=== PATIENT | male | born 1975 | race Caucasian/White ===

== ENCOUNTER 2022-11-13 12:11 | Emergency (ER) | payer MEDICARE, SELFPAY ==
[2022-11-13 12:21] VITALS: BP 125/71; PULSE 71; RESP 18; TEMP 36.7; O2SAT 98; BMI 18.6
--- NOTE | 2022-11-13 12:29 | ECG_ITS ---
[facility] Test Date: 2022-11-13 Pat Name: LINO DEGROOT Department: Room: - Gender: Male Document Control Coordinator: : 1975 Requested By: [id number] Order Number: [id number] Reading MD: DARIUSZ BAEZ Measurements Intervals [place] Rate: 69 P: 75 WA: 150 QRS: 100 QRSD: 82 T: 65 QT: 396 QTc: 415 Interpretive Statements 1100 Sinus rhythm 3433 Septal myocardial infarction, probably old 3534 Lateral myocardial infarction, age undetermined 7102 Moderate right axis deviation 9150 abnormal ECG No previous ECG available for comparison Electronically Signed On 11-14-2022 7:03:05 EDT by DARIUSZ BAEZ
--- NOTE | 2022-11-13 12:56 | ED.CHESTPAI1 ---
HPI - Chest Pain General Chief Complaint: Chest Pain Stated Complaint: CHEST PAIN Time Seen by Provider: 11/13/22 12:48 Source: patient Mode of arrival: walk-in History of Present Illness HPI narrative: patient's here for history of palpitations. He says for several months his heart rate speeds up several times a day. Sometimes it lasts an hour. He seen his primary care doctor who referred him to get Holter monitoring but he has not heard back from the [facility] he says for three weeks. He has seen a right of way buyer earlier this year preoperatively before he had hernia surgery. They told him that he hadn't abnormal valve in his heart that was based on an echocardiogram. We will try to get this information. He is not having a chest pain or discomfort at this time. He does use tobacco products but is not had previous coronary artery disease or diabetes. He does have a primary care practitioner and a different community. Related Data Home Medications Medication Instructions Recorded Confirmed fluoxetine 40 mg capsule 80 mg PO QPM 11/13/22 11/13/22 gabapentin 100 mg capsule 100 mg PO BID 11/13/22 11/13/22 haloperidol 1 mg tablet 3 mg PO QPM 11/13/22 11/13/22 lorazepam 0.5 mg tablet 0.5 mg PO BID PRN anxiety 11/13/22 11/13/22 trazodone 100 mg tablet 100 mg PO QPM 11/13/22 11/13/22 Allergies Allergy/AdvReac Type Severity Reaction Status Date / Time aspirin Allergy Severe Verified 11/13/22 12:21 Penicillins Allergy Severe Verified 11/13/22 12:21 risperidone [From Risperdal] Allergy Severe Verified 11/13/22 12:21 Exam Narrative Exam Narrative: [facility] on a 12-lead monitor shows sinus rhythm with no evidence of ischemia injury or infarct at this time. His 12-lead EKG was reviewed on his rivals equally normal. Vital signs show blood pressure 125/71. Overall constitutional skin is warm and dry mucous members are moist and pink he does not appear jaundiced or icteric. Chest showed lungs to be clear with no wheeze rales but there are some scattered rhonchi. He has smoked for many years. Heart sounds I do not hear click rub snap or any cardiac murmur at this time. His abdomen is flat soft and supple. Lower extremities. He then was certainly no evidence of edema phlebitis or venous cords. Constitutional Vital Signs, click to edit/add: Last Vital Signs Temp 98.0 F 11/13/22 12:21 Pulse 71 11/13/22 12:21 Resp 18 11/13/22 12:21 BP 125/71 11/13/22 12:21 Pulse Ox 98 11/13/22 12:21 O2 Del Method Room Air 11/13/22 12:21 Course Vital Signs Vital signs: Vital Signs Temperature 98.0 F 11/13/22 12:21 Pulse Rate 71 11/13/22 12:21 Respiratory Rate 18 11/13/22 12:21 Blood Pressure 125/71 11/13/22 12:21 Pulse Oximetry 98 11/13/22 12:21 Oxygen Delivery Method Room Air 11/13/22 12:21 Temperature 98.0 F 11/13/22 12:21 Pulse Rate 71 11/13/22 12:21 Respiratory Rate 18 11/13/22 12:21 Blood Pressure 125/71 11/13/22 12:21 Pulse Oximetry 98 11/13/22 12:21 Oxygen Delivery Method Room Air 11/13/22 12:21 MDM - Chest Pain MDM Narrative Medical decision making narrative: this patient has been on her cardiac monitoring and remained in a sinus rhythm with no ectopy or atrial fibrillation. We have been able to contact cardiorespiratory services arrange a Holter monitor for three days for him. Laboratory testing including troponin and labs are essentially normal. We will have him follow-up with his practitioner is no patient especially after the Holter monitoring is done to establish the presence and the frequency of anytime of arrhythmia Discharge Plan Discharge Chief Complaint: Chest Pain Clinical Impression: Arrhythmia Patient Disposition: Home, Self-Care Time of Disposition Decision: 14:26 Prescriptions / Home Meds: No Action fluoxetine 40 mg capsule 80 mg PO QPM gabapentin 100 mg capsule 100 mg PO BID haloperidol 1 mg tablet 3 mg PO QPM lorazepam 0.5 mg tablet 0.5 mg PO BID PRN (Reason: anxiety) trazodone 100 mg tablet 100 mg PO QPM Additional Instructions: Holter monitoring as arranged. Then follow-up to primary care practitioner Stand Alone Forms: Portal Instructions Referrals: HEATHER QUIÑONES [Primary Care Provider] - 1 week
--- NOTE | 2022-11-13 12:58 | XR_ITS ---
The [address] [address] Patient Name: LINO DEGROOT MRN: [id number] date: 1975 Sex: M Assigned Patient Location: ER Current Patient Location: ED.MAIN Accession/Order Number: [id number] Exam Date: 11/13/2022 13:32 Report Date: 11/13/2022 13:52 At the request of: AYAAN MAHMOOD Procedure: XR chest 1V EXAMINATION: XR chest 1V 11/13/2022 10:50 AM PDT HISTORY: palpitations TECHNIQUE: Single frontal view of the chest acquired. COMPARISONS: Chest x-ray 01/30/2020. FINDINGS: Lines/tubes/other: None. Heart and mediastinum: The heart and the mediastinum are within normal limits for technique. Bones: No acute osseous abnormality. Lungs: The lungs are clear. There is no evidence of pneumonia or pulmonary edema. Pleura: Blunting of bilateral costophrenic angles. No pneumothorax. Other: None. XR/XR chest 1V IMPRESSION: Blunting of bilateral costophrenic angles favored to represent diaphragmatic flattening due to large inspiration, however, trace pleural effusions could have a similar appearance. No other potentially acute cardiopulmonary abnormality demonstrated. Electronically authenticated by: NAPOLEON LI Date: 11/13/2022 13:52
[2022-11-13 13:31] LABS: Basophils Percent Auto 0.4 % (0.2-2.0); Eosinophils Absolute Auto 0.1 10^3/uL (0.0-0.7); Eosinophils Percent Auto 0.5 % (0.9-7.0); Hematocrit 39.7 % (42.0-54.0); Hemoglobin 13.9 g/dL (14.0-18.0); Immature Granulocytes Abs Auto 0.03 10^3/uL (0.00-0.03); Immature Granulocytes Pct Auto 0.3 % (0.0-0.5); Lymphocytes Absolute Auto 1.6 10^3/uL (1.2-3.8); Lymphocytes Percent Auto 17.3 % (20.5-60.0); Mean Corpuscular Volume 85.7 fL (80.0-94.0); Mean Platelet Volume 10.5 fL (9.5-13.5); Monocytes Absolute Auto 0.7 10^3/uL (0.3-0.8); Monocytes Percent Auto 7.3 % (1.7-12.0); Neutrophils Absolute Auto 6.9 10^3/uL (1.4-6.5); Neutrophils Percent Auto 74.2 % (43.0-75.0); Platelet Count 199 10^3/uL (150-450); Red Blood Count 4.63 10^6/uL (4.70-6.10); Red Cell Distribution Width 12.9 % (11.0-15.0); White Blood Count 9.4 10^3/uL (4.0-11.0)
--- NOTE | 2022-11-13 13:35 | CA_ITS ---
[facility] Test Date: 2022-11-26 Pat Name: LINO DEGROOT Department: Room: - Gender: Male Philanthropy Officer: : 1975 Requested By: [id number] Order Number: [id number] Reading MD: DARIUSZ BAEZ Interpretive Statements Predominant rhythm is sinus with average rate of 62 bpm Tachycardia - max rate of 116 bpm - longest episode of 2min 43sec w/ rate of 106-116 bpm Bradycardia - min rate of 40 bpm, occurring at 0110 - longest episode of 2h 8min 19sec with rate of 40-46 bpm Ventricluar ectopy - 215 total - 215 PVC Patient triggered events: none IMpression: Predominant rhythm is sinus with average rate of 62 bpm Fastest rate of 116 bpm and slowest rate of 40 bpm No atrial fibrillation No blocks or pauses Electronically Signed On 11-27-2022 7:07:07 EDT by DARIUSZ BAEZ
[2022-11-13] MEDS: 0.9 % SODIUM CHLORIDE 1,000 ML 250 ML IV (13:37)
[2022-11-13 13:39] LABS: D Dimer <0.19 mg/L FEU (<=0.59)
[2022-11-13 13:44] LABS: Alanine Aminotransferase 25 U/L (16-63); Albumin Globulin Ratio 1.3; Albumin Level 3.7 g/dL (3.4-5.0); Alkaline Phosphatase 67 U/L (46-116); Anion Gap 11.3; Aspartate Amino Transferase 17 U/L (15-37); BUN Creatinine Ratio 8.9; Bilirubin Total 0.3 mg/dL (0.2-1.0); Calcium 7.9 mg/dL (8.5-10.1); Carbon Dioxide 26.1 mmol/L (21.0-32.0); Chloride 99 mmol/L (98-107); Estimated GFR (African America >60 (>=60); Estimated GFR (Non-African Ame >60 (>=60); Globulin 2.8 g/dL; Glucose 113 mg/dL (74-106); Potassium 3.4 mmol/L (3.5-5.1); Sodium 133 mmol/L (136-145); Total Protein 6.5 g/dL (6.4-8.2); Troponin I High Sensitivity <4.0 pg/mL (4.0-76.1)
== END 2022-11-13 14:39 | disposition home or self-care (01) ==
PROVIDERS: Emergency Provider Emergency Medicine Emergency Medical Services; PCP Nurse Practitioner
DX: I49.9 Cardiac arrhythmia, unspecified (principal); F17.210 Nicotine dependence, cigarettes, uncomplicated
CPT/HCPCS: 36415; 71045; 80053; 84484; 85025; 85378; 93005; 93242; 99284

== ENCOUNTER 2024-07-04 11:18 | Emergency (ER) | payer MEDICARE, MEDICAID, SELFPAY ==
[2024-07-04 11:21] VITALS: BP 141/90; PULSE 79; TEMP 36.8; O2SAT 98; BMI 15.5
--- NOTE | 2024-07-04 11:30 | PC.NURSE ---
pt states sneezed and than started experiencing lower back pain that has been getting worse.
--- NOTE | 2024-07-04 11:33 | ED.GENADUL1 ---
HPI HPI - General Adult General Chief complaint: Back Pain/Injury Stated complaint: back pain Time Seen by Provider: 07/04/24 11:22 Source: patient Mode of arrival: walk-in Limitations: no limitations History of Present Illness HPI narrative: 48-year-old male presents for bilateral lower back pain. It started when he sneezed 3 days ago. He did not fall. No weakness or numbness in the legs. It hurts more in certain positions or if he stays in the same position for too long. Related Data Home Medications ?Medication ?Instructions ?Recorded ?Confirmed fluoxetine 40 mg capsule 80 mg PO QPM 11/13/22 11/13/22 gabapentin 100 mg capsule 100 mg PO BID 11/13/22 11/13/22 haloperidol 1 mg tablet 3 mg PO QPM 11/13/22 11/13/22 lorazepam 0.5 mg tablet 0.5 mg PO BID PRN anxiety 11/13/22 11/13/22 trazodone 100 mg tablet 100 mg PO QPM 11/13/22 11/13/22 Previous Rx's ?Medication ?Instructions ?Recorded ibuprofen 800 mg tablet 800 mg PO Q8H PRN pain #20 tabs 07/04/24 methocarbamol 500 mg tablet 500 mg PO Q8H PRN pain #20 tabs 07/04/24 Allergies Allergy/AdvReac Type Severity Reaction Status Date / Time aspirin Allergy Severe Verified 11/13/22 12:21 Penicillins Allergy Severe Verified 11/13/22 12:21 risperidone (From Risperdal) Allergy Severe Verified 11/13/22 12:21 Opioid HPI Opioid Management Most Recent Opioid Data: Last Pain Scale 10 07/04/24 11:47 07/04/24 Last MAR Pain Assessment 07/04/24 11:47 Review of Systems ROS Narrative A ten point review of systems is negative except as noted above. PFSH PFSH Social History Little interest or pleasure in doing things: not at all Feeling down, depressed, or hopeless: not at all Exam Narrative Exam Narrative: Nurses note and vital signs reviewed and patient is not hypoxic. General: The patient appears well and in no apparent distress. Patient is resting comfortably on cart. Skin: Warm, dry, no pallor noted. There is no rash noted. Head: Normocephalic, atraumatic Eye: Normal conjunctiva, no drainage Ears, Nose, Mouth, and Throat: oral mucosa is moist. Nares patent. He is edentulous Cardiovascular: Regular Rate and Rhythm Respiratory: Patient is in no distress, no accessory muscle use, lungs are clear to auscultation, no wheezing, rales or rhonchi Back: No bruise rash or abrasion. No palpable tenderness GI: Soft and nontender Musculoskeletal: The patient has no evidence of calf tenderness, no pitting edema, symmetrical pulses noted bilaterally Neurological: A&O, normal speech Psychiatric: Cooperative Constitutional Vital Signs, click to edit/add: Last Vital Signs Temp 98.2 F 07/04/24 11:21 Pulse 79 07/04/24 11:21 Resp 18 07/04/24 11:21 BP 141/90 07/04/24 11:21 Pulse Ox 98 07/04/24 11:21 O2 Del Method Room Air 07/04/24 11:21 Course Vital Signs Vital signs: Vital Signs Temperature 98.2 F 07/04/24 11:21 Pulse Rate 79 07/04/24 11:21 Respiratory Rate 18 07/04/24 11:21 Blood Pressure 141/90 07/04/24 11:21 Pulse Oximetry 98 07/04/24 11:21 Oxygen Delivery Method Room Air 07/04/24 11:21 Temperature 98.2 F 07/04/24 11:21 Pulse Rate 79 07/04/24 11:21 Respiratory Rate 18 07/04/24 11:21 Blood Pressure 141/90 07/04/24 11:21 Pulse Oximetry 98 07/04/24 11:21 Oxygen Delivery Method Room Air 07/04/24 11:21 Medical Decision Making [facility] Narrative Medical decision making narrative: X-ray showed no acute findings and he is feeling somewhat improved after being given IM Toradol and Norflex. He was prescribed ibuprofen and methocarbamol. Treatment diagnosis and follow-up were discussed with the patient. My clinical impression is that this is muscular in nature. Differential Diagnosis Differential Diagnosis: Lumbar strain, degenerative disc disease, compression fracture Imaging Data Lumbar x-ray: Radiologist's impression: No acute fracture or dislocation, no chronic compression fracture deformity Discharge Plan Discharge Chief Complaint: Back Pain/Injury Clinical Impression: Low back pain Patient Disposition: Home, Self-Care Time of Disposition Decision: 12:32 Condition: Good Mode of Transportation: Private Vehicle Prescriptions / Home Meds: New methocarbamol 500 mg tablet 500 mg PO Q8H PRN (Reason: pain) Qty: 20 0RF ibuprofen 800 mg tablet 800 mg PO Q8H PRN (Reason: pain) Qty: 20 0RF No Action fluoxetine 40 mg capsule 80 mg PO QPM gabapentin 100 mg capsule 100 mg PO BID haloperidol 1 mg tablet 3 mg PO QPM lorazepam 0.5 mg tablet 0.5 mg PO BID PRN (Reason: anxiety) trazodone 100 mg tablet 100 mg PO QPM Print Language: Greenlandic Instructions: Acute Low Back Pain (ED) Referrals: HEATHER QUIÑONES [Primary Care Provider] - 1 week
[2024-07-04] MEDS: ORPHENADRINE 60 MG/2 ML VIAL IM (11:47)
[2024-07-04] MEDS: KETOROLAC TROMETHAMINE 60 MG/2 ML VIAL IM (11:47)
== END 2024-07-04 12:40 | disposition home or self-care (01) ==
PROVIDERS: Emergency Provider Emergency Medicine; PCP Nurse Practitioner
DX: M54.50 Low back pain, unspecified (principal); M51.369 Other intervertebral disc degeneration, lumbar region without mention of lumbar back pain or lower extremity pain
CPT/HCPCS: 72100; 96372; 99284; J1885; J2360

== ENCOUNTER 2024-11-29 17:05 | Emergency (ER) | payer MEDICARE, MEDICAID, SELFPAY ==
[2024-11-29 17:13] VITALS: BP 146/78; PULSE 71; TEMP 36.8; O2SAT 99; BMI 18.8
--- OUTSIDE RECORDS SUMMARY | 2024-11-29 17:14 | XMS_ITS | CCD ---
Author Organization [facility] Care Team Providers Care Test Baker Name Role Phone ABIMAEL AZUL Unavailable Unavailable ABIMAEL AZUL Unavailable Unavailable Rajiv Wright Unavailable Krishna Figueroa Unavailable HEATHER CASTELLANOS Primary Care Unavailable PIEDAD SANTAMARIA Admitting Unavailable PIEDAD SANTAMARIA Attending Unavailable PETR Shah, MR SPENCE Consulting Unavailable SAMSA, JUAN P Referring Unavailable CASTELLANOSKEYURHEATHER J Primary Care Unavailable SAMSA, JUAN P Referring Unavailable CASTELLANOSIVETE J Primary Care Unavailable SAMSA, JUAN P Referring Unavailable CASTELLANOSKEYURHEATHER J Primary Care Unavailable Castellanos AIRFRAME AND POWERPLANT MECHANIC-PASSENGER COACH DRIVER, Heather Segal Primary Care Provid er Emanuel AIRFRAME AND POWERPLANT MECHANIC-PASSENGER COACH DRIVER, Heather Segal Primary Care Provid er HEATHER CASTELLANOS Referring Unavailable IVTE CASTELLANOSE Philipp Primary Care Unavailable HEATHER CASTELLANOS Referring Unavailable IVET CASTELALNOSE Philipp Primary Care Unavailable HEATHER CASTELLANOS Primary Care Physician Lyndsay Burrell Unavailable Unavailable Ashlyn AIRFRAME AND POWERPLANT MECHANIC-PASSENGER COACH DRIVERAna Lilia Primary Care Provider Rajni Chen Attending Unavailable KEYUR CASTELLANOSERIE Primary Care Unavailable Rajni Chen Attending Unavailable KEYUR CASTELLANOSERIE Primary Care Unavailable HEATHER CASTELLANOS Attending Unavailable HEATHER CASTELLANOS Referring Unavailable IVET CASTELLANOSE J Primary Care Unavailable HEATHER CASTELLANOS Attending Unavailable HEATHER CASTELLANOS Referring Unavailable CASTELLANOS, HEATHER Segal Primary Care Unavailable HEATHER CASTELLANOS Attending Unavailable HEATHER CASTELLANOS J Referring Unavailable CASTELLANOS, HEATHER J Primary Care Unavailable CASTELLANOS, HEATHER J Attending Unavailable CASTELLANOS, HEATHER J Referring Unavailable CASTELLANOS, HEATHER J Primary Care Unavailable CASTELLANOS, HEATHER J Attending Unavailable CASTELLANOS, HEATHER J Referring Unavailable CASTELLANOS, HEATHER J Primary Care Unavailable CASTELLANOS, HEATHER J Attending Unavailable CASTELLANOS, HEATHER J Referring Unavailable CASTELLANOS, HEATHER J Primary Care Unavailable CASTELLANOS, HEATHER J Attending Unavailable CASTELLANOS, HEATHER J Referring Unavailable CASTELLANOS, HEATHER J Primary Care Unavailable CASTELLANOS, HEATHER J Attending Unavailable CASTELLANOS, HEATHER J Referring Unavailable CASTELLANOS, HEATHER J Primary Care Unavailable CASTELLANOS, HEATHER J Attending Unavailable CASTELLANOS, HEATHER J Referring Unavailable CASTELLANOS, HEATHER J Primary Care Unavailable CASTELLANOS, HEATHER J Attending Unavailable CASTELLANOS, HEATHER J Referring Unavailable CASTELLANOS, HEATHER J Primary Care Unavailable VASILIY MEZA Attending Unavailable ANA LILIA OGLESBY Referring Unavailable ANA LILIA OGLESBY Primary Care Unavailable Allergies Allergy Classification Reported Allergen(s) Allergy Type Date of Onset Reaction(s) Facility Aspirin (1 source) Aspirin; Translations: [ASPIRIN] Drug Allergy 7 [facility] Penicillins (antibiotic) (1 source) Penicillins; Translations: [PENICILLINS] Drug Allergy 7 [facility] Propolis (1 source) Propolis; Translations: [PROPOLIS (BEE GLUE)] Drug Allergy 8 [facility] Unclassified (3 sources) RISPERIDONE ANALOGUES; Translations: [RISPERIDONE ANALOGUES] Propensity to adverse reactions to drug (disorder) 7 [facility] (20 sources) Aspirin; Translations: [ASPIRIN] Drug Allergy 7 [facility] (7 sources) Pen[facility] G [facility] Other (20 sources) risperiDONE; Translations: [risperidone] Drug Allergy 7 Other (See Comments) [facility] Other (7 sources) Glue Propensity to adverse reactions Unknown [facility] Other (7 sources) ALL brand detergent Propensity to adverse reactions [facility] Other (1 source) Adhesive agent Drug allergy (disorder) [facility] (1 source) Aspirin Drug Allergy [facility] (5 sources) Penicillins; Translations: [PENICILLINS] Drug allergy (disorder) 3 Other (See Comments) [facility] (1 source) risperiDONE Drug Allergy 3 [facility] (20 sources) ADHESIVE TAPE-SILICONES; Translations: [ADHESIVE TAPE-SILICONES] Propensity to adverse reactions to drug (disorder) 7 [facility] (20 sources) NEOMYCIN-POLYMY DAGOBERTO-HC; Translations: [NEOMYCIN-POLYM YXIN-HC] Propensity to adverse reactions to drug (disorder) 7 Swelling, Rash [facility] (20 sources) Cetirizine; Translations: [CETIRIZINE] Drug Allergy 4 Dizziness [facility] (17 sources) Penicillins Propensity to adverse reactions to drug 7 Other (See Comments) [facility] (20 sources) Propolis; Translations: [PROPOLIS (BEE GLUE)] Drug Allergy 8 Hives [facility] (9 sources) Penicillins Propensity to adverse reactions to drug 7 Other (See Comments) [facility] (1 source) Penicillin; Translations: [penicillins] Drug Allergy [facility] Medications Current Medications Medication Drug Class(es) Dates Sig (Normalized) Sig (Original) acetaminophen 500 mg oral tablet (20 sources) Start: 07-23-2022 take 2 tablets by mouth every six hours acetaminophen (TYLENOL EXTRA STRENGTH) 500 mg tablet Take 2 tablets (1,000 mg total) by mouth every 6 (six) hours. 30 tablet 07/23/2022 Active acyclovir 800 mg oral tablet (1 source) Herpesvirus Nucleoside Analog DNA Polymerase Inhibitor, Herpes Simplex Virus Nucleoside Analog DNA Polymerase Inhibitor, Herpes Zoster Virus Nucleoside Analog DNA Polymerase Inhibitor Start: 12-05-2023 End: 12-10-2023 acyclovir (ZOVIRAX) 800 mg tablet Indications: Herpes zoster without complication Take 1 tablet (800 mg total) by mouth in the morning and 1 tablet (800 mg total) at noon and 1 tablet (800 mg total) in the evening and 1 tablet (800 mg total) before bedtime. Do all this for 5 days. 20 tablet 12/05/2023 12/10/2023 Active albuterol 0.83 mg/ml inhalation solution (20 sources) beta2-Adrenergic Agonist Start: 09-04-2022 End: 09-09-2023 take 3 mL by inhalation every six hours as needed for wheezing albuterol (PROVENTIL,VENTOLIN ) 2.5 mg /3 mL (0.083 %) nebulizer solution Indications: Chronic obstructive pulmonary disease with [place]ation [place] [place] Inhale 3 mL (2.5 mg total) by nebulization every 6 (six) hours as needed for wheezing or shortness of breath. 150 mL 3 09/09/2023 Active Start: 04-14-2021 take 2 puff(s) by in halation every six hours as needed for wheezing albuterol (PROVENTIL HFA;VENTOLIN HFA) 90 mcg/actuation inhaler Indications: Chronic obstructive pulmonary disease, unspecified COPD type [place] [place] Inhale 2 puffs every 6 (six) hours as needed for wheezing. 18 g 11 04/14/2021 Active azithromycin 250 mg oral tablet (1 source) Macrolide Antimicrobial Start: 05-26-2024 End: 05-30-2024 azithromycin (ZITHROMAX) 250 mg tablet Indications: Acute left otitis media Take 2 tablets the first day, then 1 tablet daily for 4 days. 6 tablet 05/26/2024 05/30/2024 Active budesonide 3 mg delayed release oral capsule (3 sources) Corticosteroid Start: 09-21-2021 Budesonide 3 MG 3 capsules FOR 28 DAYS, 2 CAPSULES FOR 28 DAYS, 1 CAPSULE FOR 28 DAYS Orally Once a day for 84 day(s) Nov, Active cetirizine hydrochloride 10 mg oral tablet (4 sources) Histamine-1 Receptor Antagonist Start: 09-16-2023 End: 10-14-2023 take 1 tablet by mouth in the morning cetirizine (ZyrTEC) 10 mg tablet Indications: Seasonal allergic rhinitis due to pollen Take 1 tablet (10 mg total) by mouth in the morning. 30 tablet 2 09/16/2023 10/14/2023 Discontinued (Therapy completed) dicyclomine hydrochloride 20 mg oral tablet (5 sources) Anticholinergic Start: 04-16-2019 take 1 tablet by mouth every six hours Dicyclomine HCl 20 MG 1 tablet Orally Four times a day for 30 day(s) Apr, Active FLUoxetine 40 mg oral capsule (20 sources) Serotonin Reuptake Inhibitor Start: 07-27-2022 take 2 capsules by mouth once daily in the evening FLUoxetine (PROzac) 40 mg capsule TAKE 2 CAPSULES BY MOUTH ONCE DAILY IN THE EVENING 07/27/2022 Active Start: 10-24-2018 FLUoxetine (SC [place]) 40 mg capsule 07/27/2022 Active PROzac Active fluticasone propionate 0.05 mg/actuat metered dose nasal spray (1 source) Corticosteroid Start: 11-26-2024 take 2 spray(s) nasal route in the morning fluticasone propionate (FLONASE) 50 mcg/actuation nasal spray Administer 2 sprays into each nostril in the morning. 16 g 5 11/26/2024 Active fluticasone-umecli din-vilanter (TRELEGY ELLIPTA) 200-62.5-25 mcg blister with device (20 sources) Start: 11-11-2024 take 1 puff(s) by mouth in the morning fluticasone-umeclidi n-vilanter (TRELEGY ELLIPTA) 200-62.5-25 mcg blister with device Indications: Panlobular emphysema (CMS-HCC) Inhale 1 puff in the morning. INHALE 1 PUFF BY MOUTH IN THE MORNING. 60 each 11/11/2024 Active Start: 11-12-2023 End: 11-11-2024 take 1 puff(s) by mouth in the morning ipptnmcknom-qyaetvila-rxxlxciw (TRELEGY ELLIPTA) 200-62.5-25 mcg blister with device Indications: Panlobular emphysema (CMS-HCC) INHALE 1 PUFF BY MOUTH IN THE MORNING 60 each 11 11/12/2023 11/11/2024 Discontinued (Reorder) Start: 11-12-2023 take 1 puff(s) by mo ut in the morning mulfretmyry-tukhnzwyc-hpwfohix (TRELEGY ELLIPTA) 200-62.5-25 mcg blister with device Indications: Panlobular emphysema (CMS-HCC) INHALE 1 PUFF BY MOUTH IN THE MORNING 60 each 11 11/12/2023 Active Start: 07-09-2023 End: 11-12-2023 take 1 puff(s) by inhalation in the morning eudxsjvmlve-ourabemxw-pvnxoitp (TRELEGY ELLIPTA) 200-62.5-25 mcg blister with device Indications: Panlobular emphysema (CMS-HCC) Inhale 1 puff in the morning. 2 each 07/09/2023 11/12/2023 Discontinued Start: 07-09-2023 take 1 puff(s) by inhalation in the morning jodtzkjjxcu-qfkexgpac-kszwdemm (TRELEGY ELLIPTA) 200-62.5-25 mcg blister with device Indications: Panlobular emphysema (CMS-HCC) Inhale 1 puff in the morning. 2 each 07/09/2023 Active Start: 04-29-2023 End: 07-09-2023 take 1 puff(s) by inhalation in the morning uxysfjvvtvq-znnebzelw-jbtaxqdz (TRELEGY ELLIPTA) 200-62.5-25 mcg blister with device Indications: Panlobular emphysema (CMS-HCC) Inhale 1 puff in the morning. 60 each 6 04/29/2023 07/09/2023 Discontinued (Reorder) Start: 04-29-2023 take 1 puff(s) by inhalation in the morning lyrekxkerkk-zirowghkn-tmvxkmvu (TRELEGY ELLIPTA) 200-62.5-25 mcg blister with device Indications: Panlobular emphysema (CMS-HCC) Inhale 1 puff in the morning. 60 each 6 04/29/2023 Active Start: 04-04-2023 End: 04-29-2023 take 1 puff(s) by inhalation in the morning gutlzztswqc-jqylfcwld-umnqopsq (TRELEGY ELLIPTA) 200-62.5-25 mcg blister with device Indications: Panlobular emphysema (CMS-HCC) Inhale 1 puff in the morning. 2 each 0 04/04/2023 04/29/2023 Discontinued (Reorder) Start: 04-04-2023 take 1 puff(s) by inhalation in the morning rfkaafckvud-atknpcxqy-etlhkgwi (TRELEGY ELLIPTA) 200-62.5-25 mcg blister with device Indications: Panlobular emphysema (CMS-HCC) Inhale 1 puff in the morning. 2 each 0 04/04/2023 Active Start: 03-06-2023 End: 04-04-2023 take 1 puff(s) by inhalation in the morning fmivszfqyni-kswttnxnp-anocpxmy (TRELEGY ELLIPTA) 200-62.5-25 mcg blister with device Indications: COPD, severe (CMS-HCC) Inhale 1 puff in the morning. 2 each 0 03/06/2023 04/04/2023 Discontinued (Reorder) gabapentin 100 mg oral capsule (20 sources) Anti-epileptic Agent Start: 12-05-2023 End: 12-12-2023 take 1 capsule by mouth three times daily gabapentin (NEURONTIN) 300 mg capsule Indications: Herpes zoster without complication Take 1 capsule (300 mg total) by mouth 3 (three) times a day for 7 days. HOLD 100MG DOSING WHILE TAKING THIS FOR 7 DAYS 21 capsule 12/05/2023 12/12/2023 Active Start: 02-25-2023 End: 08-18-2024 take 1 capsule by mouth twice daily at bedtime gabapentin (NEURONTIN) 100 mg capsule Indications: Trigeminal neuralgia TAKE 1 CAPSULE BY MOUTH TWICE DAILY (IN THE MORNING and AT BEDTIME) 180 capsule 1 08/18/2024 Active haloperidol 1 mg oral tablet (20 sources) Typical Antipsychotic Start: 10-14-2024 haloperi dol 2 mg Tab 2 mg = 1 tab(s), Refills(s) 0 Start Date: 10/14/24 Status: Ordered Repeat number: 1 Start: 07-14-2021 haloperidoL (H ALDOL) 1 mg tablet 07/14/2021 Active take 1.5 tablets by mouth once daily at bedtime haloperidoL (HALDOL) 2 mg tablet Take 1.5 tablets (3 mg total) by mouth once daily at bedtime. Active Haldol Active hydrocortisone 10 mg/ml / neomycin 3.5 mg/ml / polymyxin b [id number] unt/ml otic solution (1 source) Aminoglycoside Antibacterial, Polymyxin-class Antibacterial, Corticosteroid Start: 06-16-2024 End: 06-23-2024 qgqiwfbc-akdshefmi-FM (CORTISPORIN) otic solution Indications: Acute left otitis media Administer 3 drops into the left ear in the morning and 3 drops at noon and 3 drops in the evening and 3 drops before bedtime. Do all this for 7 days. 10 mL 06/16/2024 06/23/2024 Active ibuprofen 800 mg oral tablet (10 sources) Nonsteroidal Anti-inflammatory Drug Start: 05-26-2024 take 1 tablet by mouth every eight hours as needed for pain ibuprofen (MOTRIN) 800 mg tablet Indications: Acute left otitis media Take 1 tablet (800 mg total) by mouth every 8 (eight) hours as needed for pain. Take with food 20 tablet 05/26/2024 Active loperamide hydrochloride 2 mg oral tablet (6 sources) Opioid Agonist Start: 05-30-2022 take 1 tablet by mouth four times daily as needed Imodium A-D 2 MG 1 tablet as needed Orally Four times a day PRN for 30 days May, Active Start: 08-25-2021 take 1 tablet by juan ramon twice daily Loperamide A-D 2 MG 1 TABLET Orally TWICE A DAY for 30 days Aug, Active LORazepam 1 mg oral tablet (20 sources) Benzodiazepine Start: 08-26-2024 take 1 tablet by mouth once as needed LORazepam (ATIVAN) 1 mg tablet Indications: Agoraphobia with panic attacks , Anxiety about health , Generalized anxiety disorder with panic attacks Take 1 tablet (1 mg total) by mouth every 12 (twelve) hours as needed for anxiety. 60 tablet 2 08/26/2024 Active Start: 10-14-2023 End: 08-26-2024 take 1 tablet by mouth every twelve hours as needed for anxiety LORazepam (ATIVAN) 0.5 mg tablet Indications: Agoraphobia with panic attacks , Anxiety about health , Generalized anxiety disorder with panic attacks TAKE 1 TABLET BY MOUTH EVERY 12 HOURS NEEDED FOR ANXIETY 60 tablet 2 07/20/2024 08/26/2024 Discontinued (Reorder) Start: 03-06-2023 End: 10-14-2023 take 1 tablet by mouth once as needed LORazepam (ATIVAN) 0.5 mg tablet Indications: Agoraphobia with panic attacks , Anxiety about health , Generalized anxiety disorder with panic attacks Take 1 tablet (0.5 mg total) by mouth every 12 (twelve) hours as needed for anxiety. 60 tablet 2 07/09/2023 10/14/2023 Discontinued Start: 06-08-2019 take 2 tablets by mo [facility] three times daily Ativan 0.5 mg Tab mg tab(s), Oral, TID, Refills(s) 0 Start Date: 06/08/19 Status: Ordered Repeat number: 1 take 1 tablet [address] [facility] every twelve hours Ativan 1 MG 1 tablet as needed Orally Twice a day Active metroNIDAZOLE 500 mg oral tablet (4 sources) Nitroimidazole Antimicrobial Start: 08-25-2021 take 1 tablet by mouth every twelve hours metroNIDAZOLE 500 MG 1 tablet Orally Twice a day for 7 days Aug, Active omeprazole 40 mg delayed release oral capsule (12 sources) Proton Pump Inhibitor Start: 04-25-2021 Omeprazole 40 MG 1 capsule 30 minutes before morning meal and evening meal Orally bid for 30 day(s) Apr, Active oseltamivir 75 mg oral capsule (2 sources) Neuraminidase Inhibitor Start: 04-08-2024 End: 04-13-2024 take 1 capsule by mouth in the morning, then take 1 capsule by mouth at bedtime oseltamivir (TAMIFLU) 75 mg capsule Indications: Influenza A Take 1 capsule (75 mg total) by mouth in the morning and 1 capsule (75 mg total) before bedtime. Do all this for 5 days. 10 capsule 04/08/2024 04/13/2024 Active oxybutynin chloride 5 mg oral tablet (1 source) Cholinergic Muscarinic Antagonist Start: 10-14-2024 take 1 tablet by mouth three times daily as needed oxybutynin 5 mg Tab 5 mg = 1 tab(s), Oral, TID, PRN for urinary discomfort, # 30 tab(s), Refills(s) 0, Pharmacy: [id number], 170, cm, 10/14/24 13:29:00 EDT, Height/Length Dosing, 59.4, kg, 10/14/24 13:29:00 EDT, Weight Dosing Start Date: 10/14/24 Status: Ordered Quantity: 30.0 Unit: tab(s) Repeat number: 1 Indications: Other specified disorders of bladder; pantoprazole 40 mg delayed release oral tablet (20 sources) Proton Pump Inhibitor Start: 10-14-[address] Tab 40 mg = 1 tab(s), Refills(s) 0 Start Date: 10/14/24 Status: Ordered Repeat number: 1 predniSONE 20 mg oral tablet (4 sources) Start: 11-26-2024 End: 12-01-2024 take 1 tablet by mouth in the morning, then take 1 tablet by mouth at bedtime predniSONE (DELTASONE) 20 mg tablet Take 1 tablet (20 mg total) by mouth in the morning and 1 tablet (20 mg total) before bedtime. Do all this for 5 days. 10 tablet 11/26/2024 12/01/2024 Active Start: 09-06-2021 take 1 tablet by juan ramon th every twenty-four hours predniSONE 20 MG 1 tablet Orally Once a day for 14 days Aug, Active sucralfate 1000 mg oral tablet (7 sources) Aluminum Complex Start: 04-25-2021 take 1 tablet by mouth every six hours Sucralfate 1 GM 1 tablet on an empty stomach Orally qid for 30 day(s) Apr, Active tiZANidine 2 mg oral tablet (12 sources) Central alpha-2 Adrenergic Agonist Start: 07-13-2024 End: 11-26-2024 take 1 tablet by mouth every eight hours as needed for muscle spasms tiZANidine (ZANAFLEX) 2 mg tablet Indications: Lumbar paraspinal muscle spasm Take 1 tablet (2 mg total) by mouth every 8 (eight) hours as needed for muscle spasms. 30 tablet 1 11/26/2024 Active Start: 03-09-2024 End: 04-28-2024 take 1 tablet by mouth every eight hours as needed for muscle spasms and muscle spasms tiZANidine (ZANAFLEX) 4 mg tablet Indications: Muscle spasm Take 1 tablet (4 mg total) by mouth every 8 (eight) hours as needed for muscle spasms. 21 tablet 03/09/2024 04/28/2024 Discontinued (Therapy completed) traMADol hydrochloride 50 mg oral tablet (1 source) Opioid Agonist Start: 07-13-2024 End: 07-16-2024 take 1 tablet by mouth every eight hours as needed for pain traMADoL (ULTRAM) 50 mg tablet Indications: Lumbar back pain Take 1 tablet (50 mg total) by mouth every 8 (eight) hours as needed for pain for up to 3 days. 9 tablet 07/13/2024 07/16/2024 Active traZODone hydrochloride 100 mg oral tablet (20 sources) Serotonin Reuptake Inhibitor Start: 06-27-2022 take 1 tablet by mouth once daily as needed traZODone (DESYREL) 100 mg tablet Take 1 tablet (100 mg total) by mouth nightly as needed. 06/27/2022 Active Start: 02-15-2014 take 1 tablet by juan ramon th three times daily traZODONE 100 mg Tab 100 mg = 1 tab(s), Oral, TID, Refills(s) 0 Start Date: 02/15/14 Status: Ordered Repeat number: 1 Trelegy Ellipta 200 mcg-62.5 mcg-25 mcg/inh inhalation powder (1 source) Start: 10-14-2024 Trelegy Ellipt a 200 mcg-62.5 mcg-25 mcg/inh inhalation powder 1 inh, Refill(s) 0 Start Date: 10/14/24 Status: Ordered Repeat number: 1 Completed/Discontinued Medications Medication Drug Class(es) Dates Sig (Normalized) Sig (Original) benzonatate 100 mg oral capsule (8 sources) Non-narcotic Antitussive Start: 04-08-2024 End: 04-28-2024 take 1 capsule by mouth three times daily as needed for cough benzonatate (TESSALON PERLES) 100 mg capsule Indications: Acute cough Take 1 capsule (100 mg total) by mouth 3 (three) times a day as needed for cough. 20 capsule 04/08/2024 04/28/2024 Discontinued (Therapy completed) Start: 09-09-2023 End: 10-14-2023 take 1 capsule by mouth three times daily as needed for cough benzonatate (TESSALON PERLES) 100 mg capsule Indications: Chronic obstructive pulmonary disease with acute exacerbation (CMS-HCC) Take 1 capsule (100 mg total) by mouth 3 (three) times a day as needed for cough. 20 capsule 09/09/2023 10/14/2023 Discontinued (Therapy completed) buPROPion (1 source) Aminoketone Start: 10-14-2024 bupropion HCl XL 150 mg 24 hr tablet, extended release bupropion HCl XL 150 mg 24 hr tablet, extended release, 0 Start Date: 10/14/24 Status: Ordered Repeat number: 1 deutetrabenazine (AUSTEDO XR) 30 mg tablet extended release 24 hr (7 sources) End: 06-16-2024 take 1 tablet by mouth every twenty-four hours in the morning deutetrabenazine (AUSTEDO XR) 30 mg tablet extended release 24 hr Take 30 mg by mouth in the morning. Takes at night. 06/16/2024 Discontinued (Therapy completed) take 1 tablet by juan ramon th every twenty-four hours in the morning deutetrabenazine (AUSTEDO XR) 30 mg tabl et extended release 24 hr Take 30 mg by mouth in the morning. Takes at night. Active 2 ml ketorolac tromethamine 30 mg/ml injection (2 sources) Nonsteroidal Anti-inflammatory Drug, Cyclooxygenase Inhibitor Start: 07-13-2024 End: 07-13-2024 60 mg, intramuscular, Once, On Sat07/13/24 at 1415, For 1 dose, Look-alike/sound-alike medication - verify indication for use. Duration of therapy is not to exceed 5 days. Maximum recommended dose + 120mg/24 hours. 1 ml methylPREDNISolone acetate 80 mg/ml injection (9 sources) Corticosteroid Start: 07-13-2024 End: 07-13-2024 methylPREDNISolone acetate (DEPO-MEDROL) injection 40 mg Start: 07-13-2024 End: 07-13-2024 40 mg, intramuscular, Once, On Sat07/13/24 at 1415, For 1 dose, Look-alike/sound-alike medication - verify indication for use. May alter blood glucose or insulin requirements. Start: 11-21-2023 End: 11-21-2023 methylPREDNISolone acetate ( DEPO-MEDROL) injection 40 mg Start: 11-21-2023 End: 11-21-2023 40 mg, intramuscular, Once, On [place] 11/21/23 at 1515, For 1 dose, Look-alike/sound-alike medication - verify indication for use. May alter blood glucose or insulin requirements. Start: 09-09-2023 End: 09-09-2023 methylPREDNISolone acetate ( DEPO-MEDROL) injection 40 mg Start: 09-09-2023 End: 09-09-2023 40 mg, intramuscular, Once, On Sat09/09/23 at 1530, For 1 dose, Look-alike/sound-alike medication - verify indication for use. May alter blood glucose or insulin requirements. Start: 09-09-2023 End: 09-09-2023 methylPREDNISolone acetate ( DEPO-MEDROL) injection 40 mg Start: 04-29-2023 End: 04-29-2023 methylPREDNISolone acetate ( DEPO-MEDROL) injection 40 mg Start: 04-29-2023 End: 04-29-2023 methylPREDNISolone acetate ( DEPO-MEDROL) injection 40 mg Problems Active Problems Problem Classification Problem Date Documented Da te Episodic/Chronic Abdominal pain (17 sources) Lower abdominal pain; Translations: [Lower abdominal pain, unspecified] Onset: 2 Resolved: 2 Episodic Anxiety disorders (20 sources) Post-traumatic stress disorder, unspecified; Translations: [Agoraphobia with panic attacks] Onset: 9 08-10-2019 Chronic Aortic; peripheral; and visceral artery aneurysms (20 sources) Dilatation of aorta; Translations: [Aortic ectasia, unspecified site] Onset: 4 04-04-2023 Chronic Asthma (20 sources) Unspecified asthma, uncomplicated; Translations: [Moderate persistent asthma, uncomplicated] Onset: 8 06-26-2022 Chronic Blindness and vision defects (20 sources) Visual impairment; Translations: [Unspecified visual loss] Onset: 3 06-26-2022 Chronic Chronic obstructive pulmonary disease and bronchiectasis (20 sources) Panacinar emphysema; Translations: [Panlobular emphysema] Onset: 0 Resolved: 5 11-17-2019 Chronic Disorders of lipid metabolism (20 sources) Mixed hyperlipidemia; Translations: [Mixed hyperlipidemia] Onset: 7 11-10-2019 Chronic Esophageal disorders (20 sources) Gastroesophageal reflux disease without esophagitis; Translations: [Gastro-esophageal reflux disease without esophagitis] Onset: 7 11-28-2016 Chronic Gastritis and duodenitis (8 sources) Acute hemorrhagic gastritis; Translations: [Acute gastritis with bleeding] Onset: 2 Resolved: 2 Episodic Gastroduodenal ulcer (except hemorrhage) (14 sources) Peptic ulcer; Translations: [Peptic ulcer, site unspecified, unspecified as acute or chronic, without hemorrhage or perforation] Chronic Headache; including migraine (20 sources) Migraine; Translations: [Migraine, unspecified, not intractable, without status migrainosus] Onset: 9 06-26-2022 Chronic Inflammatory conditions of male genital organs (20 sources) Chronic prostatitis; Translations: [Chronic prostatitis] Onset: 2 09-06-2021 Chronic Miscellaneous mental health disorders (20 sources) Insomnia disorder related to another mental disorder; Translations: [Insomnia due to other mental disorder] Onset: 7 11-15-2016 Chronic Mood disorders (20 sources) Severe recurrent major depression with psychotic features; Translations: [Major depressive disorder, recurrent, severe with psychotic symptoms] Onset: 5 11-14-2016 Chronic Nausea and vomiting (14 sources) Vomiting; Translations: [Vomiting, unspecified] Episodic Osteoarthritis (7 sources) Osteoarthritis of knee; Translations: [Unilateral primary osteoarthritis, right knee] Chronic Other aftercare (1 source) Other penitentiary (current) drug therapy; Translations: [OTH GROUP HOME CURRENT DRUG THERAPY] Onset: 3 Episodic Other aftercare (3 sources) Drug therapy finding; Translations: [group home (current) use of opiate analgesic] 07-09-2023 Episodic Other diseases of bladder and urethra (2 sources) Flaccid neurogenic bladder; Translations: [Flaccid neuropathic bladder, not elsewhere classified] Onset: 5 Chronic Other disorders of stomach and duodenum (7 sources) Gastroparesis syndrome; Translations: [Gastroparesis] Episodic Other gastrointestinal disorders (7 sources) Irritable bowel syndrome with diarrhea; Translations: [Irritable bowel syndrome with diarrhea] Chronic Other gastrointestinal disorders (7 sources) Constipation; Translations: [Constipation, unspecified] Episodic Other gastrointestinal disorders (7 sources) Dysphagia; Translations: [Dysphagia, unspecified] Episodic Other gastrointestinal disorders (2 sources) Diarrhea, unspecified Onset: 2 Resolved: 2 Episodic Other lower respiratory disease (1 source) Other nonspecific abnormal finding of lung field; Translations: [Other nonspecific abnormal finding of lung field] Onset: 4 Episodic Other lower respiratory disease (1 source) Cough; Translations: [Acute cough] 04-08-2024 Episodic Other male genital disorders (2 sources) H/O: male genital disorder; Translations: [Personal history of other diseases of male genital organs] Onset: 5 Episodic Other male genital disorders (1 source) Disorder of male genital organ 10-24-2018 Episodic Other male genital disorders (1 source) Pain in testicle 10-24-2018 Episodic Other nervous system disorders (3 sources) Trigeminal neuralgia; Translations: [Trigeminal neuralgia] 07-09-2023 Episodic Other upper respiratory disease (1 source) Allergic rhinitis due to pollen; Translations: [Allergic rhinitis due to pollen] 09-16-2023 Chronic Otitis media and related conditions (5 sources) Acute left otitis media; Translations: [Otitis media, unspecified, left ear] Onset: 5 05-26-2024 Episodic Schizophrenia and other psychotic disorders (20 sources) Paranoid schizophrenia; Translations: [Paranoid schizophrenia] Onset: 8 2017 Chronic Substance-related disorders (20 sources) Tobacco user; Translations: [Nicotine dependence, cigarettes, uncomplicated] Onset: 2 Resolved: 3 03-08-2022 Chronic Unclassified (3 sources) LOW BACK PAIN, UNSPECIFIED; Translations: [LOW BACK PAIN, UNSPECIFIED] Onset: 3 Unclassified (1 source) Earache Onset: 5 Unclassified (1 source) Acute cough; Translations: [Acute cough] Onset: 5 Unclassified (1 source) Low back pain, unspecified; Translations: [Low back pain, unspecified] Onset: 4 Unclassified (1 source) controlled substance contract Onset: 4 Unclassified (1 source) Rash Onset: 4 Past or Other Problems Problem Classification Problem Date Documented Da te Episodic/Chronic Allergic reactions (20 sources) Allergic contact dermatitis; Translations: [Allergic contact dermatitis due to other agents] Onset: 03-27-2017 Resolved: 07-27-2024 08-07-2022 Episodic Calculus of urinary tract (20 sources) Kidney stone; Translations: [Calculus of kidney] Onset: 01-05-2019 01-05-2019 Episodic Cardiac dysrhythmias (20 sources) Bradycardia; Translations: [Bradycardia, unspecified] Onset: 05-04-2019 05-04-2019 Episodic Complications of surgical procedures or medical care (1 source) Non dose-related adverse reaction to medication; Translations: [Unspecified adverse effect of drug or medicament, initial encounter] 09-18-2023 Episodic Disorders of teeth and jaw (20 sources) Tooth disorder; Translations: [Disorder of teeth and supporting structures, unspecified] Onset: 06-26-2022 06-26-2022 Episodic Gastrointestinal hemorrhage (20 sources) Hematemesis; Translations: [Hematemesis] Onset: 04-25-2021 Resolved: 04-25-2021 Episodic Genitourinary symptoms and ill-defined conditions (20 sources) Retention of urine; Translations: [Retention of urine, unspecified] Onset: 03-08-2022 Resolved: 04-28-2024 03-08-2022 Episodic Inflammatory conditions of male genital organs (20 sources) Orchitis and epididymitis; Translations: [Epididymo-orchitis] Onset: 09-06-2021 09-06-2021 Episodic Influenza (2 sources) Influenza due to Influenza A virus; Translations: [Influenza due to other identified influenza virus with other respiratory manifestations] Onset: 04-08-2024 04-08-2024 Episodic Intestinal infection (20 sources) Infection caused by Helicobacter pylori; Translations: [Other specified bacterial intestinal infections] Onset: 08-07-2022 08-07-2022 Episodic Lymphadenitis (20 sources) Cervical lymphadenopathy; Translations: [Localized enlarged lymph nodes] Onset: 08-25-2018 Resolved: 07-27-2024 06-26-2022 Episodic Miscellaneous mental health disorders (20 sources) Anxiety about body function or health; Translations: [Other symptoms and signs involving emotional state] Onset: 09-15-2018 09-15-2018 Episodic Mood disorders (20 sources) Mood disorders Onset: 12-05-2023 Resolved: 11-26-2024 12-05-2023 Noninfectious gastroenteritis (20 sources) Other specified noninfective gastroenteritis and colitis; Translations: [Colitis] Onset: 08-07-2022 Episodic Other aftercare (2 sources) credit products officer (current) use of opiate analgesic; Translations: [credit products officer (current) use of opiate analgesic] Onset: 01-20-2024 Episodic Other connective tissue disease (1 source) Other muscle spasm; Translations: [Other muscle spasm] Onset: 03-09-2024 Episodic Other lower respiratory disease (20 sources) Apnea; Translations: [Apnea, not elsewhere classified] Onset: 05-04-2019 05-04-2019 Episodic Other lower respiratory disease (1 source) Cough Onset: 04-08-2024 Episodic Other male genital disorders (20 sources) History of testicular disorder; Translations: [Personal history of other diseases of male genital organs] Onset: 10-20-2018 10-20-2018 Episodic Other non-traumatic joint disorders (20 sources) Pain in right knee; Translations: [Pain in joint, lower leg] Onset: 11-08-2016 06-26-2022 Episodic Other upper respiratory disease (1 source) Nasal congestion Onset: 04-08-2024 Episodic Residual codes; unclassified (20 sources) Multiple somatic complaints; Translations: [Other general symptoms and signs] Onset: 02-24-2017 02-24-2017 Episodic Spondylosis; intervertebral disc disorders; other back problems (5 sources) Spasm of muscle of lower back; Translations: [Muscle spasm of back] Onset: 03-09-2024 07-13-2024 Episodic Sprains and strains (20 sources) Strain of back muscle; Translations: [Strain of muscle and tendon of back wall of thorax, initial encounter] Onset: 10-07-2018 Resolved: 12-05-2022 12-05-2022 Episodic Unclassified (1 source) LOW BACK PAIN, UNSPECIFIED; Translations: [LOW BACK PAIN, UNSPECIFIED] Onset: 07-01-2022 Unclassified (20 sources) Onset: 09-18-2023 Resolved: 08-26-2024 09-18-2023 Urinary tract infections (20 sources) Infective cystitis; Translations: [Cystitis, unspecified without hematuria] Onset: 12-09-2018 Resolved: 07-27-2024 06-26-2022 Episodic Viral infection (2 sources) Herpes zoster without complication; Translations: [Zoster without complications] Onset: 12-05-2023 12-05-2023 Episodic Results Test Name Value Interpretation Reference Range Facility Urology Office/Clinic Noteon 11-24-2024 Urology Office/Clinic Note Urology Office/Clinic Note Chief Complaint pt here for urinary retention HPI Staff 49 year old male new patient urinary retention Previous Dx: epidiymo-orchitis, neurogenic bladder, dysuria, swollen testicle, kidney stones, epididymitis pt reports that he has been self cathing, pt did self cath yesterday and has not urinated on his own in about 1 month Pt complains of pain with urination x 1 month pt denies flank pain PVR: 134mL History of Present Illness I have reviewed and verified the staff HPI to be accurate for this encounter. Review of Systems PHQ Score Initial Depression Screen Score: 1 SCORE no fever, chills, malaise, myalgia. no abdominal pain, nausea, vomiting. Physical Exam Vitals & Measurements HR: 76(Peripheral) RR: 16 BP: 130/78 HT: 67 in HT: 170 cm WT: 130.954 lb WT: 59.4 kg BMI: 20.55 General: Well developed, well nourished, in no acute distress. Assessment/Plan 49 yo male patient here to reestablish care for urinary retention as well as c/o dysuria Prior PRW patient 1. Dysuria (R30.0: Dysuria) UA negative for blood or infection *pt able to void on his own today PVR 134 ml today Today, he presents w/ c/o dysuria and bladder pain x 1 month. Shares he has no pain with CIC, but when he tries to void on his own, it is very painful. Shares he also has a sharp pain in bladder. Reviewed UA today w/ pt, negative for infection. He denies prostatitis sxs. Explained to patient that pain sounds like potential bladder spasms. Will trial oxybutynin 2-3x day PRN for discomfort to see if this helps. Risks and side effects of med d/w pt. He is agreeable All questions answered. -Start oxybutynin 5 mg 2-3x daily PRN for bladder spasms -Increase water intake, avoid bladder irritants -F/U in 2 months, or sooner if needed 2. Bladder spasms (N32.89: Other specified disorders of bladder) -See #1 Ordered: oxybutynin, 5 mg = 1 tab(s), Oral, TID, PRN for urinary discomfort, # 30 tab(s), Refills(s) 0, Pharmacy: [id number], 170, cm, 10/14/24 13:29:00 EDT, Height/Length Dosing, 59.4, kg, 10/14/24 13:29:00 EDT, Weight Dosing 3. Neurogenic bladder (N31.2: Flaccid neuropathic bladder, not elsewhere classified) S/p cysto 08/05/2018 - moderate hypertrophy, cath cystitis UDS 08/05/18 - 1st sensation at 298 ml, 1st desire to void at 438 ml. Max flow rate 8 ml/sec. Max detrusor 50 cmH2O. Average flow rate 3 ml/sec. PVR 509 ml. Patient performing CIC 4x/day. Shares he was able to stop CIC for almost 3 years, but had to start CIC again for the past month. Able to void some on his own. Not measuring volumes. Recommended to aim for volumes < 500 ml. He shares he needs home cath supplies today. Using 18 Fr red rubber caths w/o difficulty. -Cont CIC 4x/day, maintain volumes < 500 ml -Will fax order to [facility] for caths 4. 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 Tx w/ doxycycline BID x 10 days. Today, he denies any testicular pain or swelling. Pt aware he is at increased risk of infection w/ CIC. -Cont sxs monitoring 5. History of kidney stones (Z87.442: Personal history of urinary calculi) CT scan 11/27/19 Rt 4mm non obstructing in kidney Denies recent imaging. Denies gross hematuria, flank pain or passage of stones. Offered updated imaging today, but he declines at this time. -Cont sxs monitoring Orders: [id number] Measure Post Void residual urine and/or bladder capacity by US- non-imaging Body Mass Index (BMI) documented 3008F Current tobacco smoker 1034F Depression Screening Negative 3352F Influenza immunization status assessed 1030F Medication list documented in medical record 1159F Most recent diastolic blood pressure <80 mm Hg 3078F Review of all meds by a prescribing practitioner or clinical pharmacist documented in EHR 1160F Systolic BP <130 mm Hg (Most Recent) 3074F Urnls Dip Stick Auto w/o Microscopy POC [id number] Follow-up With When Contact Information Rajni Chen PA-C, URL Additional Instructions: F/U in 2 months Patient Education Neurogenic Bladder Dysuria Problem List/Past Medical History Ongoing Anxiety Asthma Bilateral orchitis Chronic prostatitis Depression Dysuria Epididymitis Epididymo-orchitis Flank pain GERD (gastroesophageal reflux disease) Hematuria History of epididymitis History of kidney stones Hydrocele Inguinal adenopathy Kidney stones Migraine headache Neurogenic bladder Paranoid schizophrenia PTSD (post-traumatic stress disorder) Smoker Suprapubic pain Testicular pain Urinary retention Historical No qualifying data Procedure/Surgical History Endoscopic primary repair of inguinal hernia (11/25/2018), Cystoscopy (08/05/2018), Urodynamics (08/05/2018), Colonoscopy (2018), mental health issues. Medications Ativan 0.5 mg Tab, Oral, TID (more content not included)... Normal [facility] Comment on above: Result Comment: Elec tronically Signed By: Rajni Chen PA-C\\.br\\Date and Time Signed: 11/24/24 09:17 EDT B[facility]ZOD[facility]ZEPINE CNF Uon 07-27 BENZODIAZEPINE CONF SEE COMMENTS Normal [facility] Comment on above: Result Comment: Test Result Flag Unit RefValue ----- Benzodiazepines Confirmation, U Alprazolam by LC-MS/MS Negative ng/mL Cutoff: 10 Alpha-Hydroxyalprazolam by LC- Negative ng/mL Cutoff: 10 MS/MS Chlordiazepoxide by LC-MS/MS Negative ng/mL Cutoff: 10 Clonazepam by LC-MS/MS Negative ng/mL Cutoff: 10 7-aminoclonazepam by LC-MS/MS Negative ng/mL Cutoff: 10 Diazepam by LC-MS/MS Negative ng/mL Cutoff: 10 Nordiazepam by LC-MS/MS Negative ng/mL Cutoff: 10 Midazolam by LC-MS/MS Negative ng/mL Cutoff: 10 Alpha-Hydroxy Midazolam by LC- Negative ng/mL Cutoff: 10 MS/MS Oxazepam by LC-MS/MS Negative ng/mL Cutoff: 10 Temazepam by LC-MS/MS Negative ng/mL Cutoff: 10 Clobazam by LC-MS/MS Negative ng/mL Cutoff: 10 N-Desmethylclobazam by LC-MS/MS Negative ng/mL Cutoff: 10 Flunitrazepam by LC-MS/MS Negative ng/mL Cutoff: 10 7-aminoflunitrazepam by LC-MS/MS Negative ng/mL Cutoff: 10 Flurazepam by LC-MS/MS Negative ng/mL Cutoff: 10 2-Hydroxy Ethyl Flurazepam by LC- Negative ng/mL Cutoff: 10 MS/MS Lorazepam by LC-MS/MS 103 ng/mL Cutoff: 10 Prazepam by LC-MS/MS Negative ng/mL Cutoff: 10 Triazolam by LC-MS/MS Negative ng/mL Cutoff: 10 Alpha-Hydroxy Triazolam by LC- Negative ng/mL Cutoff: 10 MS/MS Zolpidem by LC-MS/MS Negative ng/mL Cutoff: 10 Zolpidem Omlhya-7-Wqgymfgryb acid Negative ng/mL Cutoff: 10 by LC-MS/MS Benzodiazepines Interpretation Positive. ADDITIONAL INFORMATION This report is intended for use in clinical monitoring and management of patients. It is not intended for use in employment-related testing. This test was developed and its performance characteristics determined by [facility] in a manner consistent with CLIA requirements. This test has not been cleared or approved by the U.S. Food and Drug Administration. Test Performed by: [facility] [address] [place] [address] Internet Ecommerce Specialist: Sandro Dugan Ph.D.; CLIA# [id number] Performed By: #### B ENZU #### [facility] Z[facility] (SDL) [address] [place] [address] VIR POCT Influenza A/Influenza B /SARS-COV-2 VeritorOrdered By: Mara Bustillo on 04-08-2024 External Poct Influenza A Antigen Positive [facility] External Poct Influenza B Antigen Negative [facility] SARS-CoV-2 (COVID-19) Ag IA.rapid Ql (Resp) Negative [facility] Benzodiazepines panel Confir m (U)on 01-20-2024 BENZODIAZEPINE CONF SEE COMMENTS 01/22/2024 10:21 AM Normal [facility] Comment on above: Result Comment: NOTE Test Result Flag Unit RefValue - Benzodiazepines Confirmation, U Alprazolam by LC-MS/MS Negative ng/mL Cutoff: 10 Alpha-Hydroxyalprazolam by LC- Negative ng/mL Cutoff: 10 MS/MS Chlordiazepoxide by LC-MS/MS Negative ng/mL Cutoff: 10 Clonazepam by LC-MS/MS Negative ng/mL Cutoff: 10 7-aminoclonazepam by LC-MS/MS Negative ng/mL Cutoff: 10 Diazepam by LC-MS/MS Negative ng/mL Cutoff: 10 Nordiazepam by LC-MS/MS Negative ng/mL Cutoff: 10 Midazolam by LC-MS/MS Negative ng/mL Cutoff: 10 Alpha-Hydroxy Midazolam by LC- Negative ng/mL Cutoff: 10 MS/MS Oxazepam by LC-MS/MS Negative ng/mL Cutoff: 10 Temazepam by LC-MS/MS Negative ng/mL Cutoff: 10 Clobazam by LC-MS/MS Negative ng/mL Cutoff: 10 N-Desmethylclobazam by LC- Negative ng/mL Cutoff: 10 MS/MS Flunitrazepam by LC-MS/MS Negative ng/mL Cutoff: 10 7-aminoflunitrazepam by LC- Negative ng/mL Cutoff: 10 MS/MS Flurazepam by LC-MS/MS Negative ng/mL Cutoff: 10 2-Hydroxy Ethyl Flurazepam by Negative ng/mL Cutoff: 10 LC-MS/MS Lorazepam by LC-MS/MS 79 ng/mL Cutoff: 10 Prazepam by LC-MS/MS Negative ng/mL Cutoff: 10 Triazolam by LC-MS/MS Negative ng/mL Cutoff: 10 Alpha-Hydroxy Triazolam by LC- Negative ng/mL Cutoff: 10 MS/MS Zolpidem by LC-MS/MS Negative ng/mL Cutoff: 10 Zolpidem Rddolm-5-Gsmdzuwrbo Negative ng/mL Cutoff: 10 acid by LC-MS/MS Benzodiazepines Interpretation Positive. ADDITIONAL INFORMATION This report is intended for use in clinical monitoring and management of patients. It is not intended for use in employment-related testing. This test was developed and its performance characteristics determined by [facility] in a manner consistent with CLIA requirements. This test has not been cleared or approved by the U.S. Food and Drug Administration. Test Performed by: [facility] [address] [place] [address] Internet Ecommerce Specialist: Sandro Dugan Ph.D.; CLIA# [id number] CT CHEST WO CONTon CT CHEST WO CONT CT CHEST WO CONT CT CHEST WO CONT CLINICAL INFORMATION: 47 years old Male with slight shortness of breath. TECHNIQUE/PROCEDURE: CT chest without intravenous contrast. All CT scans at this facility use dose modulation, iterative reconstruction, and/or weight based dosing when appropriate to reduce radiation dose to as low as reasonably achievable. Some structures are not well evaluated due to the lack of IV contrast. Computer aided detection for pulmonary nodules?was performed utilizing [employer] software.? COMPARISON: CT chest without contrast dated 04/18/2022. FINDINGS: Diagnostic quality: Satisfactory Lower neck: Unremarkable. Mediastinum: Unremarkable. Central airways: Patent. Lung: Severe emphysematous changes predominantly in the upper lobes. Irregular densities in the left apex and posterior right upper lobe are unchanged in size and appearance previous exam. No consolidative opacity. No pleural effusion. Pulmonary artery: Non-ectatic pulmonary trunk. Intraluminal evaluation is compromised due to lack of IV contrast. Aorta: Unremarkable. Three-vessel aortic arch. Intraluminal evaluation is compromised due to lack of IV contrast. Cardiac: Unremarkable. Chest wall: Unremarkable. Osseous: Unremarkable. Upper abdomen: Unremarkable. IMPRESSION: * Unchanged irregular densities in the left apex and posterior right upper lobe. * Severe similar changes in the upper lobes. Approved by Resident Rishi Vogt DO on 09/06/2023 7:45 AM Abdiel Velasquez MD have personally reviewed the image(s) and agree with and/or edited the report Finalized by Abdiel Connelly MD on 09/06/2023 8:34 AM Normal [facility] A. fumigatus IgG (S) [Mass/V ol]on 09-03-2023 Aspergillus fumigatus, IgG Ab, S 41.7 mg/L Normal <=102 [facility] Comment on above: Result Comment: NOTE ADDITIONAL INFORMATION This test was developed and its performance characteristics determined by [facility] in a manner consistent with CLIA requirements. This test has not been cleared or approved by the U.S. Food and Drug Administration. Test Performed by: [facility] [address] [place] [id number] Internet Ecommerce Specialist: Sandro Dugan Ph.D.; CLIA# [id number] Performed By: #### Amina VARGAS, 86131-9 #### [facility] ([id number]) [address] [place] [address], [place] [address] #### [id number] #### [facility] ([id number]) [address] [place] [address] CBC AND AUTO DIFFon 09-03-19 24 ABSOLUTE BASOPHIL 0.1 X10E9/L Normal 0.0-0.2 [facility] Comment on above: Performed By: #### Amina VARGAS, 01279-8 #### [facility] ([id number]) [address] [place] [address], [address] [place] [address] #### [id number] #### [facility] ([id number]) [address] [place] [address] ABSOLUTE NEUTROPHIL 5.0 X10E9/L Normal 1.5-6.6 [facility] Comment on above: Performed By: #### Amina VARGAS, 51094-2 #### [facility] ([id number]) [address] [facility], [address] [place] [address] #### [id number] #### [facility] ([id number]) [address] [place] [address] Basophils/100 WBC (Bld) 0.8 % Normal [facility] Comment on above: Performed By: #### Amina VARGAS, 98467-2 #### [facility] ([id number]) [address] [place] [address], [address] [place] [address] #### [id number] #### [facility] ([id number]) [address] [place] [address] Eosinophils (Bld) [#/Vol] 0.1 10*3/uL Normal 0.0-0.4 [facility] Comment on above: Performed By: #### Amina VARGAS, #### [facility] ([id number]) [address] [place] [address] [address] [place] [address] #### 05760-2 #### [facility] ([id number]) [address] [place] [address] Eosinophils/100 WBC (Bld) 1.8 % Normal [facility] Comment on above: Performed By: #### Amina VARGAS, 52013-7 #### [facility] ([id number]) [address] [place] [address], [address] [place] [address] #### 95840-7 #### [facility] ([id number]) [address] [place] [address] Erythrocyte distribution width (RBC) [Ratio] 13.5 % Normal 11.5-15.0 [facility] Comment on above: Performed By: #### Amina VARGAS, 15538-1 #### [facility] ([id number]) [address] [place] [address], [address] [place] [address] #### [id number] #### [facility] ([id number]) [address] [place] [address] Hematocrit (Bld) [Volume fraction] 45.3 % Normal 39-49 [facility] Comment on above: Performed By: #### Amina VARGAS, 78930-1 #### [facility] ([id number]) [address] [facility], [address] [place] [address] #### 48470-3 #### [facility] ([id number]) [address] [place] [address] Hemoglobin (Bld) [Mass/Vol] 16.0 g/dL Normal 13.0-17.0 [facility] Comment on above: Performed By: #### Amina VARGAS, 94591-0 #### [facility] ([id number]) [address] [facility], [address] [place] [address] #### 66940-1 #### [facility] ([id number]) [address] [place] [address] Lymphocytes (Bld) [#/Vol] 1.5 10*3/uL Normal 1.0-3.5 [facility] Comment on above: Performed By: #### Amina VARGAS, 55075-1 #### [facility] ([id number]) [address] [facility], [address] [place] [address] #### 25764-1 #### [facility] ([id number]) [address] [place] [address] Lymphocytes/100 WBC (Bld) 20.6 % Normal [facility] Comment on above: Performed By: #### Amina VARGAS, 65321-4 #### [facility] ([id number]) [address] [facility], [address] [place] [address] #### 16146-9 #### [facility] ([id number]) [address] [place] [address] MCH (RBC) [Entitic mass] 31.5 pg Normal 27-34 [facility] Comment on above: Performed By: #### Amina VARGAS, 43368-3 #### [facility] ([id number]) [address] [facility], [address] [address] #### 83133-4 #### [facility] ([id number]) [address] [place] [address] MCHC (RBC) [Mass/Vol] 35.4 g/dL Normal 32-36 [facility] Comment on above: Performed By: #### Amina VARGAS, #### [facility] ([id number]) [address] [facility], [address] [address] #### [id number] #### [facility] ([id number]) [address] [place] [address] MCV (RBC) [Entitic vol] 89 fL Normal 80-100 [facility] Comment on above: Performed By: #### Amina VARGAS, 53086-8 #### [facility] ([id number]) 0 [facility], [address] [address] #### 42699-9 #### [facility] ([id number]) [address] [place] [address] Monocytes (Bld) [#/Vol] 0.7 10*3/uL Normal 0-0.9 [facility] Comment on above: Performed By: #### Amina VARGAS, 45957-0 #### [facility] ([id number]) [facility], [address] [address] #### 99725-7 #### [facility] ([id number]) [address] [place] [address] Monocytes/100 WBC (Bld) 9.2 % Normal [facility] Comment on above: Performed By: #### Amina VARGAS, 45396-2 #### [facility] ([id number]) [address] [facility], [address] [place] [address] #### 87121-7 #### [facility] ([id number]) [address] [place] [address] Neutrophils/100 WBC (Bld) 67.6 % Normal [facility] Comment on above: Performed By: #### Amina VARGAS, 87184-6 #### [facility] ([id number]) [address] [facility], [facility] [address] [place] [address] #### 52174-3 #### [facility] ([id number]) [address] [place] [address] Platelet mean volume (Bld) [Entitic vol] 8.2 fL Normal 7-12 [facility] Comment on above: Performed By: #### Amina VARGAS, 78983-3 #### [facility] ([id number]) [address] [facility], [address] [place] [address] #### 23788-4 #### [facility] ([id number]) [address] [place] [address] Platelets (Bld) [#/Vol] 245 10*3/uL Normal 150-450 [facility] Comment on above: Performed By: #### Amina BCA, 83384-0 #### [facility] ([id number]) [address] [facility], [address] [place] [address] #### 48586-6 #### [facility] ([id number]) [address] [place] [address] RBC COUNT 5.10 X10E12/L Normal 4.10-5.70 [facility] Comment on above: Performed By: #### Amina VARGAS, 70831-7 #### [facility] ([id number]) [address] [facility], [address] [place] [address] #### 42599-5 #### [facility] ([id number]) [address] [place] [address] WBC (Bld) [#/Vol] 7.4 10*3/uL Normal 4.0-11.0 [facility] Comment on above: Performed By: #### Amina BCA, 06305-3 #### [facility] ([id number]) [address] [facility], [address] [place] [address] #### 94447-3 #### [facility] ([id number]) [address] [place] [address] IgE Qnon 09-03-2023 IGE 42 IU/mL Normal 0-165 [facility] Comment on above: Performed By: #### Amina BCA, 51865-7 #### [facility] ([id number]) [address] [facility], [address] [place] [address] #### 42773-1 #### [facility] ([id number]) [address] [place] [address] Rohan 09-19-2021 L - -------- Specimen: [id number] Received: 09/19/21 Status: BUD Santiago Num: [id number] Spec Type: Surgical Subm Dr: Rajiv Wright Jr, DO Tissues: A Colon Biopsy (RANDOM COL) Procedures: HE Stain/2, Gross/Micro L4 -------- Patient Age/Sex Location Account Attending Physician -------- Ha Krishnamurthy /[facility] [id number] Rajiv Wright Jr, DO -------- SPEC NUM: [id number] RECD: 09/19/21 STATUS: BUD SANTIAGO NUM: [id number] LALITHA: 09/19/[address] [facility] [address]: Rajiv Wright Jr, DO ENTERED: 09/19/[address] [facility] DR: JAQUAN TYPE: Surgical DEPT: S ENTERED BY: [id number] RECV BY: [id number] ORDERED: HE Stain/2, Gross/Micro L4 ORDERED: HE Stain/2, Gross/Micro L4 Pathological Diagnosis Colon, random biopsy: - Colonic mucosa showing mild focal active colitis with crypt abscess (see NOTE) - Melanosis coli - Negative for microscopic colitis NOTE: No evidence of chronicity is identified. The findings are nonspecific and may represent a resolving infectious colitis, sodium phosphate bowel preparation, or inflammatory bowel disease. Correlation with clinical and endoscopic findings is recommended. Clinical Information Diarrhea/blood in stool; rule out microscopic colitis Gross Description Received in 10% neutral buffered formalin, labeled with the patient's name, number and random colon biopsy rule out microscopic colitis is one fragment of soft tissue measuring 0.3 cm. Entirely submitted in one cassette labeled A1. (GURPREET/KELY) Microscopic Description Two glass slides with H E stained material have been examined. The microscopic findings support the above pathologic diagnosis. [id number] -------- -------- Specimen: [id number] Received: 09/19/21 Status: BUD Santiago Num: [id number] Spec Type: Surgical Subm Dr: Rajiv Wright Jr, DO Tissues: A Colon Biopsy (RANDOM COL) Procedures: HE Stain/2, Gross/Micro L4 -------- Patient: Ha Krishnamurthy [id number] (Continued) -------- Signed (signature on file) Milind Joshi MD 09/20/21 1717 [facility] COVID-19 Antigenon 2 COVID-19 Antigen Healthcare Worker?: N Reference Range: Negative Negative results, from patients with symptom onset beyond five days, should be treated as presumptive and confirmation with a molecular assay, if necessary, for patient management, may be performed. Negative results do not rule out COVID-19 and should not be used as the sole basis for treatment or patient management decisions, including infection control decisions. Negative results should be considered in the context of a patient's recent exposures, history and the presence of clinical signs and symptoms consistent with COVID-19. The Amrin SARS Antigen PEGGY does not differentiate between SARS-CoV and SARS-CoV-2. This test was developed and its performance characteristic determined by [employer] and validated at [facility]. This test has not been FDA cleared or approved. This test has been authorized by FDA under an Emergency Use Authorization (EUA). This test has been validated in accordance with the FDA's Guidance Document (Policy for Diagnostics Testing in Laboratories Certified to Perform High Complexity Testing under CLIA prior to Emergency Use Authorization for Coronavirus Disease-2019 during the Public Health Emergency) issued on June 11, 2019. This test is only authorized for the duration of time the declaration that circumstances exist justifying the authorization of the emergency use of in vitro diagnostic tests for detection of SARS-CoV-2 virus and/or diagnosis of COVID-19 infection under section 564(b)(1) of the Act, 21 U.S.C. 360bbb-3(b)(1), unless the authorization is terminated or revoked sooner. SARS-CoV+SARS-CoV-2 (COVID-19) Ag [Presence] in Respiratory specimen by Rapid immunoassay Negative for SARS Antigen by PEGGY PERFORMED BY: [facility] [address] [place] [address] PATHOLOGIST RESOURCE ROOM TEACHER MILIND JOSHI M.D. [facility] Comment on above: Performed By: #### C OVID-19 CHRIS FUNESEG #### [place] [id number] [facility] [place] Ag Negativeon 09-16-19 [place] Ag Negative Negative Normal Negative [facility] Comment on above: Result Comment: This is a duplicate [place] SARS Antigen (PEGGY) result to be used for statistical tracking purpose only. PERFORMED BY: [place] [address] PATHOLOGIST RESOURCE ROOM TEACHER MILIND JOSHI M.D. Performed By: #### C OVID-19 MARIN, SOFIANEG #### [address] COVID-19 FRMCon 05-02-2021 SARS-CoV-2 (COVID-19) RNA YOANA+probe Ql (Unsp spec) Negative Normal Negative [facility] Comment on above: Order Comment: Healt hcare Worker?: N Result Comment: Testing for SARS-CoV-2 by RT-PCR This test was developed and its performance characteristics determined by [employer] and validated at the [facility]. This test has not been FDA cleared or approved. This test has been authorized by FDA under an Emergency Use Authorization (EUA). This test has been validated in accordance with the FDA's Guidance Document (Policy for Diagnostics Testing in Laboratories Certified to Perform High Complexity Testing under CLIA prior to Emergency Use Authorization for Coronavirus Disease-2019 during the Public Health Emergency) issued on June 11, 2019. This test is only authorized for the duration of time the declaration that circumstances exist justifying the authorization of the emergency use of in vitro diagnostic tests for detection of SARS-CoV-2 virus and/or diagnosis of COVID-19 infection under section 564(b)(1) of the Act, 21 U.S.C. 360bbb-3(b)(1), unless the authorization is terminated or revoked sooner. PERFORMED BY: [place] [address] PATHOLOGIST RESOURCE ROOM TEACHER MILIND JOSHI M.D. Performed By: #### C OVID 19 [place] #### [place] [id number] [facility] [place] esophagus ugion 1 [place] esophagus ugi [facility] [address] [place] [address] Fluoroscopy Report Signed Patient: Ha Krishnamurthy MR#: [id number] 9 : 1975 Acct:[id number] Age/Sex: 45 / M ADM Date: 10/20/20 Loc: XD Room: Type: [facility] Attending Dr: Rajiv Wright DO Ordering Provider: Rajiv Wright Jr, DO Date of Service: 10/20/20 FL/FL esophagus ugi: Hematemesis;Lower abdominal pain Copies to: Rajiv Wright Jr, DO AIR CONTRAST ESOPHAGRAM WITH UPPER GI SERIES CLINICAL DATA: Lower abdominal pain and hematemesis over the past year. Loose stools and weight loss. EGD August 02, 2020 showing erosive esophagitis and hemorrhagic gastritis. COMPARISON: None Machine Feeder supine and upright views of the abdomen and pelvis show air and mild stool within the colon. No dilated small bowel loops are visualized. No free air or fluid levels are noted. There are no soft tissue masses. Under fluoroscopic observation, an air-contrast esophagram was performed followed by upper GI series. The swallowing mechanism is intact. The hypopharynx including the valleculae and piriform sinuses show no significant abnormalities. The thoracic esophagus is within normal limits for size and position. No obvious masses are identified. There is subtle mucosal irregularity the could relate to the reported history of esophagitis. There is a tiny sliding-type hiatal hernia. There is no significant dysmotility or spontaneous gastroesophageal reflux. The stomach is normal in position and contour. The rugal fold pattern is within normal limits. No masses or mucosal lesions are seen. The duodenal bulb shows mild fold prominence. The C - loop and proximal opacified portions of small bowel are also within normal limits. 10 overhead, 29 fluoroscopic images Fluoroscopy time: 1 minute FL/FL esophagus ugi IMPRESSION: POSSIBLE MINOR RESIDUAL ESOPHAGITIS. TINY SLIDING-TYPE HIATAL HERNIA. SLIGHT NONSPECIFIC FOLD PROMINENCE AT THE DUODENAL BULB. NO OTHER ACUTE FINDINGS. Impression dictated by: Nkechi Wilks M.D.10/20/2020 10:49 AM Dictation Location: [place] [address] Transcribed By: DALTON 10/20/20 1049 Dictated By: Nkechi Wilks MD 10/20/20 1041 Signed By: 10/20/20 1049 [facility] Vital Signs Date Time Vital Sign Value Performing Clinician Facility 11-26-2024 10:15-0400 Body height 170.2 cm VasiliyMozzo [employer]long DO [facility] 11-26-2024 10:15-0400 Body mass index (BMI) [Ratio] 18.76 kg/m2 Vasiliy Furlong DO [facility] Phone[facility] 11-26-2024 10:15-0400 Body temperature 97.11 [degF] Vasiliy [employer] DO Work Phone[facility] 11-26-2024 10:15-0400 Body weight 54.34 kg [employer] DO Work Phone[facility] 11-26-2024 10:15-0400 Diastolic blood pressure 74 mm[Hg] Vasiliy Furlong DO [facility] Phone[facility] 11-26-2024 10:15-0400 Heart rate 68 /min [employer] DO Work Phone[facility] 11-26-2024 10:15-0400 Respiratory rate 18 /min [employer] DO Work Phone[facility] 11-26-2024 10:15-0400 SaO2% (BldA) [Mass fraction] 98 % [employer] DO Work Phone[facility] 11-26-2024 10:15-0400 Systolic blood pressure 118 mm[Hg] Vasiliy Furlong DO Work Phone[facility] 08-26-2024 11:01-0400 Body height 170.2 cm Heather Castellanos [employer]CH[employer] Work Phone: [facility] [employer] [facility] 08-26-2024 11:01-0400 Body mass index (BMI) [Ratio] 18.58 kg/m2 Heather Castellanos APRN-ESTELITA Work Phone: [facility] [employer] [facility] 08-26-2024 11:01-0400 Body temperature 98.2 [degF] Heather Castellanos APRN-PASSENGER COACH DRIVER Work Phone: [facility] [employer] [facility] 08-26-2024 11:01-0400 Body weight 53.8 kg Heather Castellanos APRN-ESTELITA Work Phone: [facility] [employer] [facility] 08-26-2024 11:01-0400 Diastolic blood pressure 70 mm[Hg] Heather Castellanos APRN-PASSENGER COACH DRIVER Work Phone: [facility] [employer] [facility] 08-26-2024 11:01-0400 Heart rate 71 /min Heather Castellanos APRN-ESTELITA Work Phone: [facility] [employer] [facility] 08-26-2024 11:01-0400 Respiratory rate 16 /min Heather Castellanos APRN-ESTELITA Work Phone: [facility] 08-26-2024 11:01-0400 SaO2% (BldA) [Mass fraction] 100 % Heather Castellanos APRN-ESTELITA Work Phone: [facility] [employer] [facility] 08-26-2024 11:01-0400 Systolic blood pressure 118 mm[Hg] Heather Castellanos APRN-ESTELITA Work Phone: [facility] [employer] [facility] 07-27-2024 13:35-0400 Body height 170.2 cm Heather Castellanos APRN-ESTELITA Work Phone: [facility] 07-27-2024 13:35-0400 Body mass index (BMI) [Ratio] 18.63 kg/m2 Heather Castellanos APRN-ESTELITA Work Phone: [facility] 07-27-2024 13:35-0400 Body temperature 97.81 [degF] Heather Castellanos APRN-PASSENGER COACH DRIVER Work Phone: [facility] 07-27-2024 13:35-0400 Body weight 53.98 kg Heather Castellanos APRN-PASSENGER COACH DRIVER Work Phone: [facility] 07-27-2024 13:35-0400 Diastolic blood pressure 88 mm[Hg] Heather Castellanos APRN-PASSENGER COACH DRIVER Work Phone: [facility] 07-27-2024 13:35-0400 Heart rate 69 /min Heather Castellanos APRN-PASSENGER COACH DRIVER Work Phone: [facility] 07-27-2024 13:35-0400 Respiratory rate 20 /min Heather Castellanos APRN-PASSENGER COACH DRIVER Work Phone: [facility] 07-27-2024 13:35-0400 SaO2% (BldA) [Mass fraction] 98 % Heather Castellanos APRN-PASSENGER COACH DRIVER Work Phone: [facility] 07-27-2024 13:35-0400 Systolic blood pressure 120 mm[Hg] Heather Castellanos APRN-PASSENGER COACH DRIVER Work Phone: [facility] 07-13-2024 13:47-0400 Body height 170.2 cm Heather Castellanos APRN-PASSENGER COACH DRIVER Work Phone: [facility] 07-13-2024 13:47-0400 Body mass index (BMI) [Ratio] 19.45 kg/m2 Heather Castellanos APRN-PASSENGER COACH DRIVER Work Phone: [facility] 07-13-2024 13:47-0400 Body temperature 98.8 [degF] Heather Castellanos APRN-PASSENGER COACH DRIVER Work Phone: [facility] 07-13-2024 13:47-0400 Body weight 56.34 kg Heather Castellanos APRN-PASSENGER COACH DRIVER Work Phone: [facility] 07-13-2024 13:47-0400 Diastolic blood pressure 84 mm[Hg] Heather Castellanos APRN-PASSENGER COACH DRIVER Work Phone: [facility] 07-13-2024 13:47-0400 Heart rate 79 /min Heather Castellanos APRN-PASSENGER COACH DRIVER Work Phone: [facility] 07-13-2024 13:47-0400 Respiratory rate 16 /min Heather Castellanos APRN-PASSENGER COACH DRIVER Work Phone: [facility] 07-13-2024 13:47-0400 SaO2% (BldA) [Mass fraction] 99 % Heather Castellanos APRN-PASSENGER COACH DRIVER Work Phone: [facility] 07-13-2024 13:47-0400 Systolic blood pressure 140 mm[Hg] Heather Castellanos APRN-PASSENGER COACH DRIVER Work Phone: [facility] 06-16-2024 14:36-0400 Body height 170.2 cm Heather Castellanos APRN-PASSENGER COACH DRIVER Work Phone: [facility] 06-16-2024 14:36-0400 Body mass index (BMI) [Ratio] 19.07 kg/m2 Heather Castellanos APRN-PASSENGER COACH DRIVER Work Phone: [facility] 06-16-2024 14:36-0400 Body temperature 97.5 [degF] Heather Castellanos APRN-PASSENGER COACH DRIVER Work Phone: [facility] 06-16-2024 14:36-0400 Body weight 55.25 kg Heather Castellanos APRN-PASSENGER COACH DRIVER Work Phone: [facility] 06-16-2024 14:36-0400 Diastolic blood pressure 70 mm[Hg] Heather Castellanos AIRFRAME AND POWERPLANT MECHANIC-PASSENGER COACH DRIVER Work Phone: [facility] 06-16-2024 14:36-0400 Heart rate 71 /min Heather Castellanos APRN-PASSENGER COACH DRIVER Work Phone: [facility] 06-16-2024 14:36-0400 Respiratory rate 18 /min Heather Castellanos APRN-PASSENGER COACH DRIVER Work Phone: [facility] 06-16-2024 14:36-0400 SaO2% (BldA) [Mass fraction] 99 % Heather Castellanos AIRFRAME AND POWERPLANT MECHANIC-PASSENGER COACH DRIVER Work Phone: [facility] 06-16-2024 14:36-0400 Systolic blood pressure 110 mm[Hg] Heahter Castellanos AIRFRAME AND POWERPLANT MECHANIC-PASSENGER COACH DRIVER Work Phone: [facility] 05-26-2024 14:20-0400 Body height 170.2 cm Heather Castellanos AIRFRAME AND POWERPLANT MECHANIC-PASSENGER COACH DRIVER Work Phone: [facility] 05-26-2024 14:20-0400 Body mass index (BMI) [Ratio] 19.32 kg/m2 Heather Castellanos AIRFRAME AND POWERPLANT MECHANIC-PASSENGER COACH DRIVER Work Phone: [facility] 05-26-2024 14:20-0400 Body temperature 97.59 [degF] Heather Castellanos AIRFRAME AND POWERPLANT MECHANIC-PASSENGER COACH DRIVER Work Phone: [facility] 05-26-2024 14:20-0400 Body weight 55.97 kg Heather Castellanos AIRFRAME AND POWERPLANT MECHANIC-PASSENGER COACH DRIVER Work Phone: [facility] 05-26-2024 14:20-0400 Diastolic blood pressure 68 mm[Hg] Heather Castellanos AIRFRAME AND POWERPLANT MECHANIC-PASSENGER COACH DRIVER Work Phone: [facility] 05-26-2024 14:20-0400 Heart rate 79 /min Heather Castellanos AIRFRAME AND POWERPLANT MECHANIC-PASSENGER COACH DRIVER Work Phone: [facility] 05-26-2024 14:20-0400 Respiratory rate 18 /min Heather Degrootillo AIRFRAME AND POWERPLANT MECHANIC-PASSENGER COACH DRIVER Work Phone: [facility] 05-26-2024 14:20-0400 SaO2% (BldA) [Mass fraction] 97 % Heather Castellanos AIRFRAME AND POWERPLANT MECHANIC-PASSENGER COACH DRIVER Work Phone: [facility] [employer] [facility] 05-26-2024 14:20-0400 Systolic blood pressure 110 mm[Hg] Heather Castellanos AIRFRAME AND POWERPLANT MECHANIC-PASSENGER COACH DRIVER Work Phone: [facility] [employer] [facility] 04-28-2024 15:21-0500 Body height 170.2 cm Heather Castellanos APRN-PASSENGER COACH DRIVER Work Phone: [facility] [employer] [facility] 04-28-2024 15:21-0500 Body mass index (BMI) [Ratio] 19.35 kg/m2 Heather Castellanos APRN-PASSENGER COACH DRIVER Work Phone: [facility] [employer] [facility] 04-28-2024 15:21-0500 Body temperature 98.01 [degF] Heather Castellanos APRN-ESTELITA Work Phone: [facility] [employer] [facility] 04-28-2024 15:21-0500 Body weight 56.06 kg Heather Castellanos APRN-PASSENGER COACH DRIVER Work Phone: [facility] [employer] [facility] 04-28-2024 15:21-0500 Diastolic blood pressure 74 mm[Hg] Heather Castellanos APRN-PASSENGER COACH DRIVER Work Phone: [facility] [employer] [facility] 04-28-2024 15:21-0500 Heart rate 74 /min Heather Castellanos APRN-ESTELITA Work Phone: [facility] [employer] [facility] 04-28-2024 15:21-0500 Respiratory rate 18 /min Heather Castellanos APRN-ESTELITA Work Phone: [facility] [employer] [facility] 04-28-2024 15:21-0500 SaO2% (BldA) [Mass fraction] 95 % Heather Castellanos APRN-ESTELITA Work Phone: [facility] [employer] [facility] 04-28-2024 15:21-0500 Systolic blood pressure 126 mm[Hg] Heather Castellanos APRN-PASSENGER COACH DRIVER Work Phone: [facility] [employer] [facility] 04-08-2024 11:39-0500 Body height 170.2 cm Heather Castellanos APRN-PASSENGER COACH DRIVER Work Phone: [facility] [employer] [facility] 04-08-2024 11:39-0500 Body mass index (BMI) [Ratio] 18.89 kg/m2 Heather Castellanos APRN-PASSENGER COACH DRIVER Work Phone: [facility] 04-08-2024 11:39-0500 Body temperature 97.9 [degF] Heather Castellanos AIRFRAME AND POWERPLANT MECHANIC-PASSENGER COACH DRIVER Work Phone: [facility] [employer] [facility] 04-08-2024 11:39-0500 Body weight 54.7 kg Heather Castellanos APRN-PASSENGER COACH DRIVER Work Phone: [facility] [employer] [facility] 04-08-2024 11:39-0500 Diastolic blood pressure 82 mm[Hg] Heather Castellanos AIRFRAME AND POWERPLANT MECHANIC-PASSENGER COACH DRIVER Work Phone: [facility] Comment on above: shaking to muchto hear 04-08-2024 11:39-0500 Heart rate 81 /min Heather Castellanos APRN-PASSENGER COACH DRIVER Work Phone: [facility] [employer] 04-08-2024 11:39-0500 Respiratory rate 20 /min Heather Castellanos APRN-PASSENGER COACH DRIVER Work Phone: [facility] [employer] 04-08-2024 11:39-0500 SaO2% (BldA) [Mass fraction] 96 % Heather Castellanos APRN-PASSENGER COACH DRIVER Work Phone: [facility] [employer] 04-08-2024 11:39-0500 Systolic blood pressure 130 mm[Hg] Heather Castellanos APRN-PASSENGER COACH DRIVER Work Phone: [facility] Comment on above: shaking to muchto hear 01-20-2024 11:41-0500 Body height 170.2 cm Heather Castellanos AIRFRAME AND POWERPLANT MECHANIC-PASSENGER COACH DRIVER Work Phone: [facility] 01-20-2024 11:41-0500 Body mass index (BMI) [Ratio] 19.08 kg/m2 Heather Castellanos APRN-PASSENGER COACH DRIVER Work Phone: [facility] 01-20-2024 11:41-0500 Body temperature 97.59 [degF] Heather Castellanos AIRFRAME AND POWERPLANT MECHANIC-PASSENGER COACH DRIVER Work Phone: [facility] [employer] [facility] 01-20-2024 11:41-0500 Body weight 55.25 kg Heather Castellanos APRN-PASSENGER COACH DRIVER Work Phone: [facility] 01-20-2024 11:41-0500 Diastolic blood pressure 60 mm[Hg] Heather Castellanos APRN-PASSENGER COACH DRIVER Work Phone: [facility] 01-20-2024 11:41-0500 Heart rate 67 /min Heather Castellanos APRN-PASSENGER COACH DRIVER Work Phone: [facility] [employer] [facility] 01-20-2024 11:41-0500 Respiratory rate 18 /min Heather Castellanos APRN-PASSENGER COACH DRIVER Work Phone: [facility] 01-20-2024 11:41-0500 SaO2% (BldA) [Mass fraction] 99 % Heather Castellanos APRN-PASSENGER COACH DRIVER Work Phone: [facility] 01-20-2024 11:41-0500 Systolic blood pressure 110 mm[Hg] Heather Castellanos APRN-PASSENGER COACH DRIVER Work Phone: [facility] 12-05-2023 12:57-0400 Body height 170.2 cm Heather Castellanos APRN-PASSENGER COACH DRIVER Work Phone: [facility] 12-05-2023 12:57-0400 Body mass index (BMI) [Ratio] 19.17 kg/m2 Heather Castellanos APRN-PASSENGER COACH DRIVER Work Phone: [facility] 12-05-2023 12:57-0400 Body temperature 98.4 [degF] Heather Castellanos APRN-PASSENGER COACH DRIVER Work Phone: [facility] 12-05-2023 12:57-0400 Body weight 55.52 kg Heather Castellanos APRN-PASSENGER COACH DRIVER Work Phone: [facility] 12-05-2023 12:57-0400 Diastolic blood pressure 80 mm[Hg] Heather Castellanos APRN-ESTELITA Work Phone: [facility] 12-05-2023 12:57-0400 Heart rate 92 /min Heather Castellanos APRN-PASSENGER COACH DRIVER Work Phone: [facility] 12-05-2023 12:57-0400 Respiratory rate 18 /min Heather Castellanos APRN-ESTELITA Work Phone: [facility] 12-05-2023 12:57-0400 SaO2% (BldA) [Mass fraction] 97 % Heather Castellanos APRN-ESTELITA Work Phone: [facility] 12-05-2023 12:57-0400 Systolic blood pressure 120 mm[Hg] Heather Castellanos APRN-PASSENGER COACH DRIVER Work Phone: [facility] 11-21-2023 14:45-0400 Body height 170.2 cm Heather Castellanos APRN-ESTELITA Work Phone: [facility] 11-21-2023 14:45-0400 Body mass index (BMI) [Ratio] 19.53 kg/m2 Heather Castellanos APRN-ESTELITA Work Phone: [facility] 11-21-2023 14:45-0400 Body temperature 97.81 [degF] Heather Castellanos APRN-ESTELITA Work Phone: [facility] 11-21-2023 14:45-0400 Body weight 56.56 kg Heather Castellanos APRN-ESTELITA Work Phone: [facility] 11-21-2023 14:45-0400 Diastolic blood pressure 70 mm[Hg] Heather Castellanos APRN-PASSENGER COACH DRIVER Work Phone: [facility] 11-21-2023 14:45-0400 Heart rate 65 /min Heather Castellanos APRN-PASSENGER COACH DRIVER Work Phone: [facility] 11-21-2023 14:45-0400 Respiratory rate 18 /min Heather Castellanos APRN-PASSENGER COACH DRIVER Work Phone: [facility] 11-21-2023 14:45-0400 SaO2% (BldA) [Mass fraction] 100 % Heather Castellanos APRN-PASSENGER COACH DRIVER Work Phone: [facility] 11-21-2023 14:45-0400 Systolic blood pressure 124 mm[Hg] Heather Castellanos APRN-PASSENGER COACH DRIVER Work Phone: [facility] 10-14-2023 10:07-0400 Body height 170.2 cm Heather Castellanos APRN-PASSENGER COACH DRIVER Work Phone: [facility] 10-14-2023 10:07-0400 Body mass index (BMI) [Ratio] 18.89 kg/m2 Heather Castellanos APRN-PASSENGER COACH DRIVER Work Phone: [facility] 10-14-2023 10:07-0400 Body temperature 97.59 [degF] Heather Castellanos APRN-PASSENGER COACH DRIVER Work Phone: [facility] 10-14-2023 10:07-0400 Body weight 54.7 kg Heather Castellanos APRN-PASSENGER COACH DRIVER Work Phone: [facility] 10-14-2023 10:07-0400 Diastolic blood pressure 72 mm[Hg] Heather Castellanos APRN-ESTELITA Work Phone: [facility] 10-14-2023 10:07-0400 Heart rate 65 /min Heather Castellanos APRN-PASSENGER COACH DRIVER Work Phone: [facility] 10-14-2023 10:07-0400 Respiratory rate 20 /min Heather Castellanos APRN-PASSENGER COACH DRIVER Work Phone: [facility] 10-14-2023 10:07-0400 SaO2% (BldA) [Mass fraction] 99 % Heather Castellanos APRN-PASSENGER COACH DRIVER Work Phone: [facility] 10-14-2023 10:07-0400 Systolic blood pressure 110 mm[Hg] Heather Castellanos AIRFRAME AND POWERPLANT MECHANIC-PASSENGER COACH DRIVER Work Phone: [facility] 09-18-2023 08:40-0400 Body height 170.2 cm Heather Castellanos AIRFRAME AND POWERPLANT MECHANIC-PASSENGER COACH DRIVER Work Phone: [facility] 09-18-2023 08:40-0400 Body mass index (BMI) [Ratio] 19.69 kg/m2 Heather Castellanos AIRFRAME AND POWERPLANT MECHANIC-PASSENGER COACH DRIVER Work Phone: [facility] 09-18-2023 08:40-0400 Body temperature 97.59 [degF] Heather Castellanos AIRFRAME AND POWERPLANT MECHANIC-PASSENGER COACH DRIVER Work Phone: [facility] 09-18-2023 08:40-0400 Body weight 57.02 kg Heather Castellanos AIRFRAME AND POWERPLANT MECHANIC-PASSENGER COACH DRIVER Work Phone: [facility] 09-18-2023 08:40-0400 Diastolic blood pressure 80 mm[Hg] Heather Castellanos AIRFRAME AND POWERPLANT MECHANIC-PASSENGER COACH DRIVER Work Phone: [facility] 09-18-2023 08:40-0400 Heart rate 60 /min Heather Castellanos APRN-PASSENGER COACH DRIVER Work Phone: [facility] 09-18-2023 08:40-0400 Respiratory rate 18 /min Heather Castellanos AIRFRAME AND POWERPLANT MECHANIC-PASSENGER COACH DRIVER Work Phone: [facility] 09-18-2023 08:40-0400 SaO2% (BldA) [Mass fraction] 99 % Heather Castellanos AIRFRAME AND POWERPLANT MECHANIC-PASSENGER COACH DRIVER Work Phone: [facility] 09-18-2023 08:40-0400 Systolic blood pressure 110 mm[Hg] Heather Castellanos AIRFRAME AND POWERPLANT MECHANIC-PASSENGER COACH DRIVER Work Phone: [facility] 09-09-2023 14:56-0400 Body height 170.2 cm Heather Castellanos AIRFRAME AND POWERPLANT MECHANIC-PASSENGER COACH DRIVER Work Phone: [facility] 09-09-2023 14:56-0400 Body mass index (BMI) [Ratio] 19.62 kg/m2 Heather Castellanos APRN-PASSENGER COACH DRIVER Work Phone: [facility] 09-09-2023 14:56-0400 Body temperature 97.7 [degF] Heather Castellanos APRN-PASSENGER COACH DRIVER Work Phone: [facility] 09-09-2023 14:56-0400 Body weight 56.84 kg Heather Castellanos APRN-PASSENGER COACH DRIVER Work Phone: [facility] 09-09-2023 14:56-0400 Diastolic blood pressure 80 mm[Hg] Heather Castellanos APRN-PASSENGER COACH DRIVER Work Phone: [facility] 09-09-2023 14:56-0400 Heart rate 63 /min Heather Castellanos APRN-PASSENGER COACH DRIVER Work Phone: [facility] 09-09-2023 14:56-0400 Respiratory rate 18 /min Heather Castellanos APRN-PASSENGER COACH DRIVER Work Phone: [facility] 09-09-2023 14:56-0400 SaO2% (BldA) [Mass fraction] 99 % Heather Castellanos APRN-PASSENGER COACH DRIVER Work Phone: [facility] 09-09-2023 14:56-0400 Systolic blood pressure 120 mm[Hg] Heather Castellanos APRN-PASSENGER COACH DRIVER Work Phone: [facility] 07-09-2023 09:51-0400 Body height 170.2 cm Heather Castellanos APRN-PASSENGER COACH DRIVER Work Phone: [facility] [employer] [facility] 07-09-2023 09:51-0400 Body mass index (BMI) [Ratio] 19.28 kg/m2 Heather Castellanos APRN-PASSENGER COACH DRIVER Work Phone: [facility] 07-09-2023 09:51-0400 Body temperature 98.01 [degF] Heather Castellanos APRN-PASSENGER COACH DRIVER Work Phone: [facility] [employer] [facility] 07-09-2023 09:51-0400 Body weight 55.84 kg Heather Castellanos APRN-ESTELITA Work Phone: [facility] [employer] [facility] 07-09-2023 09:51-0400 Diastolic blood pressure 68 mm[Hg] Heather Castellanos APRN-PASSENGER COACH DRIVER Work Phone: [facility] [employer] [facility] 07-09-2023 09:51-0400 Heart rate 75 /min Heather Castellanos APRN-PASSENGER COACH DRIVER Work Phone: [facility] [employer] [facility] 07-09-2023 09:51-0400 Respiratory rate 24 /min Heather Castellanos APRN-PASSENGER COACH DRIVER Work Phone: [facility] 07-09-2023 09:51-0400 SaO2% (BldA) [Mass fraction] 98 % Heather Castellanos APRN-ESTELITA Work Phone: [facility] [employer] [facility] 07-09-2023 09:51-0400 Systolic blood pressure 120 mm[Hg] Heather Castellanos APRN-PASSENGER COACH DRIVER Work Phone: [facility] [employer] [facility] 04-29-2023 10:59-0500 Body height 170.2 cm Heather Castellanos APRN-PASSENGER COACH DRIVER Work Phone: [facility] [employer] [facility] 04-29-2023 10:59-0500 Body mass index (BMI) [Ratio] 20.22 kg/m2 Heather Castellanos APRN-PASSENGER COACH DRIVER Work Phone: [facility] [employer] [facility] 04-29-2023 10:59-0500 Body temperature 97.81 [degF] Heather Castellanos APRN-PASSENGER COACH DRIVER Work Phone: [facility] [employer] [facility] 04-29-2023 10:59-0500 Body weight 58.56 kg Heather Castellanos APRN-PASSENGER COACH DRIVER Work Phone: [facility] [employer] [facility] 04-29-2023 10:59-0500 Diastolic blood pressure 70 mm[Hg] Heather Castellanos APRN-PASSENGER COACH DRIVER Work Phone: [facility] [employer] [facility] 04-29-2023 10:59-0500 Heart rate 80 /min Heather Castellanos APRN-PASSENGER COACH DRIVER Work Phone: [facility] [employer] [facility] 04-29-2023 10:59-0500 SaO2% (BldA) [Mass fraction] 98 % Heather Castellanos APRN-PASSENGER COACH DRIVER Work Phone: [facility] [employer] [facility] 04-29-2023 10:59-0500 Systolic blood pressure 122 mm[Hg] Heather Castellanos APRN-PASSENGER COACH DRIVER Work Phone: [facility] [employer] [facility] 04-04-2023 15:28-0500 Body height 170.2 cm Heather Castellanos APRN-PASSENGER COACH DRIVER Work Phone: [facility] [employer] [facility] 04-04-2023 15:28-0500 Body mass index (BMI) [Ratio] 19.72 kg/m2 Heather Castellanos APRN-PASSENGER COACH DRIVER Work Phone: [facility] [employer] [facility] 04-04-2023 15:28-0500 Body temperature 98.29 [degF] Heather Castellanos APRN-ESTELITA Work Phone: [facility] [employer] [facility] 04-04-2023 15:28-0500 Body weight 57.11 kg Heather Castellanos APRN-PASSENGER COACH DRIVER Work Phone: [facility] [employer] [facility] 04-04-2023 15:28-0500 Diastolic blood pressure 70 mm[Hg] Heather Castellanos APRN-PASSENGER COACH DRIVER Work Phone: [facility] [employer] [facility] 04-04-2023 15:28-0500 Heart rate 58 /min Heather Castellanos APRN-PASSENGER COACH DRIVER Work Phone: [facility] [employer] [facility] 04-04-2023 15:28-0500 SaO2% (BldA) [Mass fraction] 98 % Heather Castellanos APRN-PASSENGER COACH DRIVER Work Phone: [facility] [employer] [facility] 04-04-2023 15:28-0500 Systolic blood pressure 110 mm[Hg] Heather Castellanos AIRFRAME AND POWERPLANT MECHANIC-PASSENGER COACH DRIVER Work Phone: [facility] 05-30-2022 16:00-0400 Body height 170.18 cm Krishna Figueroa Other [employer] Other 05-30-2022 16:00-0400 Diastolic blood pressure 78 mm[Hg] Krishna Figueroa Other [employer] Other 05-30-2022 16:00-0400 Systolic blood pressure 125 mm[Hg] Krishna Figueroa Other [employer] Other 04-25-2021 16:45-0500 Body height 170.18 cm Rajiv Wright Other [employer] Other 04-25-2021 16:45-0500 Body mass index (BMI) [Ratio] 18.79 kg/m2 Rajiv Wright Other [employer] Other 04-25-2021 16:45-0500 Body weight 54.43 kg Rajiv Wright Other [employer] Other 04-25-2021 16:45-0500 Diastolic blood pressure 71 mm[Hg] Rajiv Wright Other [employer] Other 04-25-2021 16:45-0500 Systolic blood pressure 117 mm[Hg] Rajiv Wright Other [employer] Other Encounters Encounter Date Encounter Type Care Provider Facility Start: 12-09-2024 ambulatory Rajni Chen Facility:[facility] Start: 11-26-2024 End: 11-26-2024 Office outpatient visit 25 minutes Vasiliy Meza DO Work Phone: [facility] Comment on above: Disorder of left eus tachian tube (Primary Dx); Lumbar paraspinal muscle spasm; Cigarette smoker Start: 11-26-2024 End: 11-26-2024 ambulatory VASILIY MEZA [facility] Start: 11-11-2024 End: 11-11-2024 [facility] Comment on above: Panlobular emphysema ([facility]-HCC) Start: 10-14-2024 End: 10-14-2024 ambulatory Rajni Chen Facility:[facility] Start: 10-14-2024 End: 10-14-2024 Patient encounter procedure Rajni April [facility] Start: 08-26-2024 End: 08-26-2024 Office outpatient visit 15 minutes Heather Castellanos AIRFRAME AND POWERPLANT MECHANIC-PASSENGER COACH DRIVER Work Phone[facility] Comment on above: Generalized anxiety disorder with panic attacks (Primary Dx); Agoraphobia with panic attacks; Anxiety about health Start: 08-26-2024 End: 08-26-2024 ambulatory [facility] Start: 08-18-2024 End: 08-18-2024 Refill Heather Castellanos AIRFRAME AND POWERPLANT MECHANIC-PASSENGER COACH DRIVER Work Phone: [facility] Comment on above: Trigeminal neuralgia Start: 07-27-2024 End: 07-27-2024 Office outpatient visit 15 minutes Heather Castellanos AIRFRAME AND POWERPLANT MECHANIC-PASSENGER COACH DRIVER Work Phone: [facility] Comment on above: Agoraphobia with bearden ic attacks (Primary Dx); Narcotic use agreement exists Start: 07-27-2024 End: 07-27-2024 ambulatory [facility] Start: 07-20-2024 End: 07-20-2024 Orders Only Heather Castellanos AIRFRAME AND POWERPLANT MECHANIC-PASSENGER COACH DRIVER Work Phone: [facility] Start: 07-19-2024 End: 07-20-2024 Refill Heather J Castellanos AIRFRAME AND POWERPLANT MECHANIC-PASSENGER COACH DRIVER Work Phone: [facility] Comment on above: Agoraphobia with bearden ic attacks; Anxiety about health; Generalized anxiety disorder with panic attacks Start: 07-13-2024 End: 07-13-2024 Office outpatient visit 15 minutes Heatherthomas Castellanos AIRFRAME AND POWERPLANT MECHANIC-PASSENGER COACH DRIVER Work Phone: [facility] Comment on above: Lumbar paraspinal mu scle spasm (Primary Dx); Lumbar back pain Start: 07-13-2024 End: 07-13-2024 ambulatory [facility] Start: 06-16-2024 End: 06-16-2024 Office outpatient visit 15 minutes Heather [facility] AIRFRAME AND POWERPLANT MECHANIC-PASSENGER COACH DRIVER Work Phone: [facility] Comment on above: Acute left otitis me dana (Primary Dx) Start: 06-16-2024 End: 06-16-2024 ambulatory [facility] Start: 05-26-2024 End: 05-26-2024 Office outpatient visit 15 minutes [facility] [employer] POWERPLANT MECHANIC-PASSENGER COACH DRIVER Work Phone: [facility] Comment on above: Acute left otitis me dana (Primary Dx) Start: 05-26-2024 End: 05-26-2024 ambulatory [facility] Start: 04-28-2024 End: 04-28-2024 Office outpatient visit 15 minutes [facility] [employer] POWERPLANT MECHANIC-PASSENGER COACH DRIVER Work Phone: [facility] Comment on above: Anxiety about health (Primary Dx); Agoraphobia with panic attacks; Generalized anxiety disorder with panic attacks; Paranoid schizophrenia ([facility]-HCC); Posttraumatic stress disorder; Dilatation of aorta ([facility]-HCC) Start: 04-28-2024 End: 04-28-2024 ambulatory [facility] Start: 04-09-2024 End: 04-09-2024 Refill Heather Segal Castellanos AIRFRAME AND POWERPLANT MECHANIC-PASSENGER COACH DRIVER Work Phone: [facility] Comment on above: Agoraphobia with bearden ic attacks; Anxiety about health; Generalized anxiety disorder with panic attacks Start: 04-08-2024 End: 04-08-2024 Office outpatient visit 15 minutes Heatherthomas Castellanos AIRFRAME AND POWERPLANT MECHANIC-PASSENGER COACH DRIVER Work Phone: [facility] Comment on above: Influenza A (Primary Dx); Acute cough Start: 04-08-2024 End: 04-08-2024 ambulatory [facility] Start: 03-09-2024 End: 03-09-2024 ambulatory [facility] Start: 02-11-2024 End: 02-11-2024 Refill Heatherthomas Castellanos AIRFRAME AND POWERPLANT MECHANIC-PASSENGER COACH DRIVER Work Phone: [facility] Comment on above: Trigeminal neuralgia Start: 01-20-2024 End: 01-20-2024 ambulatory [facility] Start: 01-20-2024 End: 01-20-2024 Office outpatient visit 15 minutes Heatherthomas Castellanos AIRFRAME AND POWERPLANT MECHANIC-PASSENGER COACH DRIVER Work Phone: [facility] Comment on above: Agoraphobia with bearden ic attacks (Primary Dx); Narcotic use agreement exists; Anxiety about health; Generalized anxiety disorder with panic attacks Start: 01-20-2024 End: 01-20-2024 ambulatory [facility] Start: 01-13-2024 End: 01-13-2024 Refill Heatherthomas Castellanos AIRFRAME AND POWERPLANT MECHANIC-PASSENGER COACH DRIVER Work Phone: [facility] Comment on above: Agoraphobia with bearden ic attacks; Anxiety about health; Generalized anxiety disorder with panic attacks Start: 12-05-2023 End: 12-05-2023 Office outpatient visit 15 minutes Heather Castellanos APRN-PASSENGER COACH DRIVER Work Phone: [facility] Comment on above: Herpes zoster withou t complication (Primary Dx) Start: 12-05-2023 End: 12-05-2023 ambulatory HEATHERTHOMAS CASTELLANOS [facility] Start: 11-21-2023 End: 11-21-2023 Office outpatient visit 15 minutes Heather Castellanos APRN-PASSENGER COACH DRIVER Work Phone: [facility] Comment on above: Chronic obstructive pulmonary disease with acute exacerbation ([facility]-HCC) (Primary Dx) Start: 11-12-2023 End: 11-12-2023 Refill Heather Castellanos APRN-PASSENGER COACH DRIVER Work Phone: [facility] Comment on above: Panlobular emphysema (CMS-HCC) Start: 10-14-2023 End: 10-14-2023 Refill Heather Castellanos APRN-PASSENGER COACH DRIVER Work Phone: [facility] Comment on above: Agoraphobia with bearden ic attacks; Anxiety about health; Generalized anxiety disorder with panic attacks Start: 10-14-2023 End: 10-14-2023 Office outpatient visit 15 minutes Heather Castellanos APRN-PASSENGER COACH DRIVER Work Phone: [facility] Comment on above: Agoraphobia with bearden ic attacks (Primary Dx); Social anxiety disorder; Schizoaffective disorder, bipolar type (CMS-HCC); Paranoid schizophrenia ([facility]-HCC); Anxiety about health Start: 09-18-2023 End: 09-18-2023 Office outpatient visit 15 minutes Heather Castellanos APRN-PASSENGER COACH DRIVER Work Phone: [facility] Comment on above: [id number] adv erse effect of medication, initial encounter (Primary Dx) Start: 09-16-2023 End: 09-16-2023 Telephone encounter Mara Iwona PRINTING TECHNICIAN [facility] Start: 09-09-2023 End: 09-09-2023 Office outpatient visit 15 minutes Heather Castellanos AIRFRAME AND POWERPLANT MECHANIC-PASSENGER COACH DRIVER Work Phone: [facility] Comment on above: Chronic obstructive pulmonary disease with acute exacerbation (CMS-HCC) Start: 09-03-2023 End: 09-03-2023 ambulatory JUAN BAUMANN Carlosedicradha [facility] Start: 07-09-2023 End: 07-09-2023 Office outpatient visit 25 minutes Heather Castellanos AIRFRAME AND POWERPLANT MECHANIC-PASSENGER COACH DRIVER Work Phone: [facility] Comment on above: Agoraphobia with bearden ic attacks (Primary Dx); Narcotic use agreement exists; Panlobular emphysema (CMS-HCC); Trigeminal neuralgia; Anxiety about health; Generalized anxiety disorder with panic attacks; GERD without esophagitis Start: 04-29-2023 End: 04-29-2023 Office outpatient visit 15 minutes Heather Castellanos AIRFRAME AND POWERPLANT MECHANIC-PASSENGER COACH DRIVER Work Phone: [facility] Comment on above: Chronic obstructive pulmonary disease with acute exacerbation (CMS-HCC) (Primary Dx); Panlobular emphysema (CMS-HCC) Start: 04-04-2023 End: 04-04-2023 Office outpatient visit 15 minutes Heather Castellanos APRN-PASSENGER COACH DRIVER Work Phone: [facility] Comment on above: Panlobular emphysema (CMS-HCC) (Primary Dx); Dilatation of aorta (CMS-HCC); Schizoaffective disorder, bipolar type (CMS-HCC) Start: 09-03-2022 End: 09-03-2022 ambulatory Krishna Figueroa Other [employer] Other Start: 09-03-2022 Telephone encounter Krishna Pe[facility] Start: 07-01-2022 End: 07-01-2022 ambulatory HEATHER CASTELLANOS Facility:[facility] Start: 05-30-2022 End: 05-30-2022 ambulatory Krishna Fgiueroa Other [employer] (formerly [facility]) Other Start: 05-30-2022 Patient encounter procedure Krishna Figueroa [facility] Start: 11-30-2021 End: 11-30-2021 ambulatory Krishna Figueroa Other [facility] (formerly [facility]) Other Start: 11-30-2021 Telephone encounter Krishna [facility] Start: 09-21-2021 End: 09-21-2021 ambulatory Rajiv Ondina Other [facility] (formerly [facility]) Other Start: 09-21-2021 Telephone encounter Rajiv Wright [facility] Start: 09-05-2021 End: 09-05-2021 ambulatory Rajiv Wright Other [facility] (formerly [facility]) Other Start: 09-05-2021 Telephone encounter Rajiv Wright [facility] Start: 08-24-2021 End: 08-24-2021 ambulatory Rajiv Wright Other [facility] (formerly [facility]) Other Start: 08-24-2021 Telephone encounter Rajiv Wright [facility] Start: 04-25-2021 End: 04-25-2021 ambulatory Rajiv Wright Other [facility] (formerly [facility]) Other Start: 04-25-2021 Office outpatient vi sit 25 minutes Rajiv Wright [facility] Start: 02-12-2018 Patient encounter procedure ABIMAEL AZUL Facility:[id number] Procedures Date Procedure Procedure Detail Performing Clinician Start: 11-26-2024 Adult depression scr eening assessment Vasiliy Meza DO Work Phone: Start: 07-27-2024 Adult depression scr eening assessment Heather Castellanos [employer] MECH[employer]IC-PASSENGER COACH DRIVER Work Phone: Start: 07-13-2024 Adult depression scr eening assessment Heather Castellanos [employer] MECHANIC-PASSENGER COACH DRIVER Work Phone: Start: 04-28-2024 Adult depression scr eening assessment Heather Castellanos [employer]ANT MECHANIC-PASSENGER COACH DRIVER Work Phone: Start: 04-08-2024 POCT INFLUENZA A/INF LUENZA B/SARS-COV-2 VERITOR Heather Castellanos [employer]OWER[employer]ANT MECHANIC-PASSENGER COACH DRIVER Work Phone: Start: 12-05-2023 Adult depression scr eening assessment Heather Castellanos [employer]OWER[employer]ANT MECHANIC-PASSENGER COACH DRIVER Work Phone: Start: 11-21-2023 Adult depression scr eening assessment Heather Castellanos [employer]OWER[employer]ANT MECHANIC-PASSENGER COACH DRIVER Work Phone: Start: 10-14-2023 Adult depression scr eening assessment Heather Castellanos [employer]OWER[employer]ANT MECHANIC-PASSENGER COACH DRIVER Work Phone: Start: 09-18-2023 Adult depression scr eening assessment Heather Castellanos [employer]ANT MECHANIC-PASSENGER COACH DRIVER Work Phone: Start: 09-09-2023 Adult depression scr eening assessment Heather Castellanos [employer]ANT MECHANIC-PASSENGER COACH DRIVER Work Phone: Start: 07-09-2023 Adult depression scr eening assessment Heather Castellanos [employer]OWER[employer]ANT MECHANIC-PASSENGER COACH DRIVER Work Phone: Start: 04-29-2023 Adult depression scr eening assessment Heather Castellanos [employer] MECHANIC-PASSENGER COACH DRIVER Work Phone: Start: 04-04-2023 Adult depression scr eening assessment Heather Castellanos [employer]OWER[employer]ANT MECHANIC-PASSENGER COACH DRIVER Work Phone: Start: 09-19-2021 Colonoscopy Heather Cinda augustineo [employer] MECHANIC-PASSENGER COACH DRIVER Work Phone: Start: 11-25-2018 Endoscopic primary r epair of inguinal hernia Rajnikamlesh Chen Comment on above: Right side Start: 08-05-2018 Cystoscopy Rajni fernández Start: 08-05-2018 Urodynamic studies Almas Chen Start: 03-11-2018 Colonoscopy Rajni fernández mental health issues Rajni Chen Plan of Treatment Date Care Activity Detail Author Start: 06-20-2034 DTaP,Tdap and Td Vac cines (2 - Td or Tdap) DTaP,Tdap and Td Vaccines (2 - Td or Tdap) [facility] Start: 09-20-2031 Screening for malign ant neoplasm of colon Colonoscopy [facility] Start: 11-26-2025 Adult BMI Screening Adult BMI Screen ing [facility] Start: 11-26-2025 Depression Screening Depression Scre ening [facility] Start: 11-26-2025 Tobacco Screening Tobacco Screening [facility] Start: 08-26-2025 Adult BMI Screening Adult BMI Screen ing [facility] Start: 08-26-2025 Tobacco Screening Tobacco Screening [facility] Start: 07-27-2025 Adult BMI Screening Adult BMI Screen ing [facility] Start: 07-27-2025 Depression Screening Depression Scre ening [facility] Start: 07-27-2025 Tobacco Screening Tobacco Screening [facility] Start: 07-13-2025 Adult BMI Screening Adult BMI Screen ing [facility] Start: 07-13-2025 Depression Screening Depression Scre ening [facility] Start: 07-13-2025 Tobacco Screening Tobacco Screening [facility] Start: 05-26-2025 Adult BMI Screening Adult BMI Screen ing [facility] Start: 05-26-2025 Tobacco Screening Tobacco Screening [facility] Start: 04-28-2025 Adult BMI Screening Adult BMI Screen ing [facility] Start: 04-28-2025 Depression Screening Depression Scre ening [facility] Start: 04-08-2025 Adult BMI Screening Adult BMI Screen ing [facility] Start: 04-08-2025 Tobacco Screening Tobacco Screening [facility] Start: 01-19-2025 Adult BMI Screening Adult BMI Screen ing [facility] Start: 01-19-2025 Tobacco Screening Tobacco Screening [facility] Start: 12-10-2024 End: 12-10-2024 Patient encounter procedure 12/10/2024 10:00 AM EDT Office Visit [facility] - [facility] Medicine [address] [place] [id number] Vasiliy Meza, [address] [place], [facility] [address] [facility] Start: 12-04-2024 Adult BMI Screening Adult BMI Screen ing [facility] Start: 12-04-2024 Depression Screening Depression Scre ening [facility] Start: 12-04-2024 Tobacco Screening Tobacco Screening [facility] Start: 11-20-2024 Adult BMI Screening Adult BMI Screen ing [facility] Start: 11-20-2024 Depression Screening Depression Scre ening [facility] Start: 11-20-2024 Tobacco Screening Tobacco Screening [facility] Start: 11-09-2024 Influenza vaccination Influenza Vacc ine [facility] Start: 10-13-2024 Adult BMI Screening Adult BMI Screen ing [facility] Start: 10-13-2024 Depression Screening Depression Scre ening [facility] Start: 10-13-2024 Tobacco Screening Tobacco Screening [facility] Start: 09-17-2024 Adult BMI Screening Adult BMI Screen ing [facility] Start: 09-17-2024 Depression Screening Depression Scre ening [facility] Start: 09-17-2024 Tobacco Screening Tobacco Screening [facility] Start: 09-08-2024 Adult BMI Screening Adult BMI Screen ing [facility] Start: 09-08-2024 Depression Screening Depression Scre ening [facility] Start: 09-08-2024 Tobacco Screening Tobacco Screening [facility] Start: 07-27-2024 End: 07-27-2024 Patient encounter procedure 07/27/2024 1:40 PM EDT Office Visit [facility] - Family Medicine [address] [place] [address] Heather Castellanos, [employer] MECHANIC-PASSENGER COACH DRIVER [address] [place] [address] [facility] Start: 07-08-2024 Adult BMI Screening Adult BMI Screen ing [facility] Start: 04-30-2025 Depression Screening Depression Scre ening [facility] Start: 07-08-2024 Tobacco Screening Tobacco Screening [facility] Start: 04-29-2024 Adult BMI Screening Adult BMI Screen ing [facility] Start: 04-29-2024 Depression Screening Depression Scre ening [facility] Start: 04-29-2024 Tobacco Screening Tobacco Screening [facility] Start: 04-28-2024 End: 04-28-2024 Patient encounter procedure 04/28/2024 3:20 PM EST Office Visit [facility] [address] [place] [address] Heather Castellanos, [employer] MECHANIC-PASSENGER COACH DRIVER [address] [place] [address] [facility] Start: 04-04-2024 Adult BMI Screening Adult BMI Screen ing [facility] Start: 04-04-2024 Depression Screening Depression Scre ening [facility] Start: 04-04-2024 Tobacco Screening Tobacco Screening [facility] Start: 01-20-2024 End: 01-20-2024 Patient encounter procedure 01/20/2024 11:20 AM EST [facility] [address] [place] [address] Heather Castellanos, [employer] MECHANIC-PASSENGER COACH DRIVER [address] [place] [address] [facility] Start: 01-16-2024 End: 01-16-2024 Patient encounter procedure 01/16/2024 10:20 AM EST Office Visit [facility] [address] [place] [address] Heather Castellanos, [employer]ANT MECHANIC-PASSENGER COACH DRIVER [address] [place] [address] [facility] Start: 11-10-2023 Influenza vaccination Influenza Vacc ine [facility] Start: 10-14-2023 End: 10-14-2023 Patient encounter procedure 10/14/2023 10:20 AM EDT Office Visit [facility] - Family Medicine [address] [place] [address] Heather Castellanos, [employer] MECHANIC-PASSENGER COACH DRIVER [address] [place] [address] [facility] Start: 10-10-2023 End: 10-10-2023 Patient encounter procedure 10/10/2023 10:00 AM EDT Office Visit [facility] - Family Medicine [address] [place] [address] Heather Castellanos, [employer] MECHANIC-PASSENGER COACH DRIVER [address] [place] [address] [facility] Start: 07-09-2023 End: 07-09-2023 Patient encounter procedure 07/09/2023 10:00 AM EDT Office Visit [facility] - Family Medicine [address] [place] [address] Heather Castellanos, [employer]ANT MECHANIC-PASSENGER COACH DRIVER [address] [place] [address] [facility] Start: 05-28-2023 Tobacco Counseling Tobacco Counselin iirna [facility] Start: 10-02-1995 DTaP,Tdap and Td Vac cines (1 - Tdap) DTaP,Tdap and Td Vaccines (1 - Tdap) [facility] Start: 1976 Tobacco Counseling Tobacco Counselin irina [facility] End: 07-08-2024 Benzodiazepine cnf urine Benzodiazepine cnf urine Lab Routine Narcotic use agreement exists 1 Occurrences starting 07/09/2023 until 07/08/2024 [facility] Work Phone: Comment on above: 1 Occurrences starti ng 07/09/2023 until 07/08/2024 End: 01-19-2025 Benzodiazepine cnf urine Benzodiazepine cnf urine Lab Routine Narcotic use agreement exists 1 Occurrences starting 01/20/2024 until 01/19/2025 [facility] Work Phone: Comment on above: 1 Occurrences starti ng 01/20/2024 until 01/19/2025 End: 07-27-2025 Benzodiazepine cnf urine Benzodiazepine cnf urine Lab Routine Narcotic use agreement exists 1 Occurrences starting 07/27/2024 until 07/27/2025 [facility] Work Phone: Comment on above: 1 Occurrences starti ng 07/27/2024 until 07/27/2025 Benzodiazepine cnf urine Benzodi azepine cnf urine Lab Routine Narcotic use agreement exists 07/27/2024 1:38 PM EDT [facility] Benzodiazepines pane l - Urine by Confirmatory method Benzodiazepine cnf urine Lab Routine Narcotic use agreement exists 07/09/2023 4:22 PM EDT [facility] Benzodiazepines pane l - Urine by Confirmatory method Benzodiazepine cnf urine Lab Routine Narcotic use agreement exists 01/20/2024 6:00 PM EST [facility] Immunizations Immunization Date Immunization Notes Care Provider [facility] 12-01-2023 Covid-19,mrna, Lnp-s , Pf, 50mcg/0.5ml 12+ Heather Castellanos [employer] POWERPLANT MECHANIC-PASSENGER COACH DRIVER Work Phone: [facility] 12-01-2023 Seasonal, trivalent, recombinant, injectable influenza vaccine, preservative free Heather Castellanos [employer] AND POWERPLANT MECHANIC-PASSENGER COACH DRIVER Work Phone: [facility] 12-01-2023 influenza virus vaccine, unspecified formulation Heather Castellanos [employer] AND POWERPLANT MECHANIC-PASSENGER COACH DRIVER Work Phone: [facility] 12-05-2022 influenza, injectabl e, quadrivalent, preservative free Heather Castellanos [employer] AND POWERPLANT MECHANIC-PASSENGER COACH DRIVER Work Phone: [facility] 12-05-2022 influenza virus vaccine, unspecified formulation Heather Castellanos AIR[employer] AND POWERPLANT MECHANIC-PASSENGER COACH DRIVER Work Phone: [facility] 11-27-2021 influenza, injectabl e, quadrivalent, preservative free Heather Castellanos AIR[employer] AND POWERPLANT MECHANIC-PASSENGER COACH DRIVER Work Phone: [facility] 12-09-2020 Seasonal, quadrivale nt, recombinant, injectable influenza vaccine, preservative free Heather Castellanos [employer] AND POWERPLANT MECHANIC-PASSENGER COACH DRIVER Work Phone: [facility] 06-09-2020 COVID-19, mRNA, LNP- S, PF, 100mcg/0.5mL Dose Heather Castellanos [employer] AND POWERPLANT MECHANIC-PASSENGER COACH DRIVER Work Phone: [facility] 05-12-2020 COVID-19, mRNA, LNP- S, PF, 100mcg/0.5mL Dose Heather Castellanos [employer] AND POWERPLANT MECHANIC-PASSENGER COACH DRIVER Work Phone: [facility] 12-11-2019 Seasonal, quadrivale nt, recombinant, injectable influenza vaccine, preservative free Heather Castellanos AIR[employer] AND POWERPLANT MECHANIC-PASSENGER COACH DRIVER Work Phone: [facility] 12-30-2018 influenza, injectabl e, quadrivalent, preservative free Heather Castellanos [employer] AND POWERPLANT MECHANIC-PASSENGER COACH DRIVER Work Phone: [facility] 12-30-2018 pneumococcal conjuga te vaccine, 13 valent Heather Castellanos [employer] AND POWERPLANT MECHANIC-PASSENGER COACH DRIVER Work Phone: [facility] 12-09-2018 influenza virus vaccine, live, attenuated, for intranasal use Rajni Chen [facility] 10-21-2017 influenza, injectabl e, quadrivalent, preservative free Heather Castellanos AIR[employer] AND POWERPLANT MECHANIC-PASSENGER COACH DRIVER Work Phone: [facility] 01-03-2017 influenza, injectabl e, quadrivalent, preservative free Heather Castellanos AIR[employer] AND POWERPLANT MECHANIC-PASSENGER COACH DRIVER Work Phone: [facility] Payers Date Payer Category Payer Medicare [id number] 2024 Unknown [id number] 2023 Medicare HMO [id number] 2023 Unknown [id number] 2019 Medicare [id number] 2014 Medicaid [id number] 2014 Medicaid [id number] 1976 Unknown [id number] 2.16. [id number] 1976 Unknown [id number] 2.16.84 [id number] 1976 Unknown [id number] 2.16.8 40.1.067503.3.579.2.1286 1976 Unknown [id number] 2.16.8 40.1.587051.3.579.2.1286 1976 Unknown [id number] 2.16.8 40.1.024887.3.579.2.1286 1976 Unknown [id number] 2.16. 840.1.369783.3.579.2.1286 1976 Unknown [id number] 2.16.8 40.1.330711.3.579.2.1286 1976 Unknown [id number] 2.16.8 40.1.359600.3.579.2.727 1976 Unknown [id number] 2.16.8 40.1.498358.3.579.2.727 1976 Unknown [id number] 2.16. 840.1.941330.3.579.2.1286 1976 Unknown [id number] 2.16. 840.1.505995.3.579.2.1286 1976 Unknown [id number] 2.16. 840.1.723445.3.579.2.1286 1976 Unknown [id number] 2.16. 840.1.329953.3.579.2.1286 1976 Unknown [id number] 2.16. 840.1.798350.3.579.2.1286 1976 Unknown [id number] 2.16. 840.1.984450.3.579.2.128 1976 Unknown [id number] 2.16. 840.1.966637.3.579.2.1286 1976 Unknown [id number] 2.16. 840.1.496908.3.579.2.128 1976 Unknown [id number] 2.16. 840.1.010384.3.579.2.128 1976 Unknown [id number] 2.16.8 40.1.051531.3.579.2.128 1976 Unknown [id number] 2.16.8 40.1.617726.3.579.2.1286 1959 Medicaid [id number] 1959 Medicare [id number] 2. [id number] Medicare [id number] Social History Date Type Detail Facility Unknown if ever smoked [facility] (formerly [facility] Other Start: 02-21-2020 End: 03-23-2020 [facility] Start: 03-[facility]-1987 End: 07-09-2023 Tobacco smoking status SDIS [facility] Start: 03-11-1987 History of tobacco use [facility] Start: 03-23-2020 End: 07-09-2023 Cigarettes smoked current (pack per day) - [facility]orted [facility] Start: 08-07-2022 End: 07-09-2023 Tobacco use and exposure Smokeless tobacco non-user [facility] [employer] [facility] Start: 04-08-2024 End: 11-26-2024 Alcoholic beverage intake Current non-drinker of alcohol (finding) [facility] Do you belong to any clubs or organizations such as restorationist groups, unions, fraternal or athletic groups, or school groups? No [facility] Are you now , , , , never or living with a partner? [facility] How often to you hav e a drink containing alcohol? Never [facility] How many standard dr inks containing alcohol do you have on a typical day? Patient declined [facility] Do you feel stress - tense, restless, nervous, or anxious, or unable to sleep at night because your mind is troubled all the time - these days [OSQ] Rather much [facility] Start: 02-21-2020 Education [facility] Start: 1975 Sex assigned at Not on file [facility] [employer] Start: 12-05-2013 End: 10-14-2014 Sex Male (finding) [facility] [employer] [facility] Start: 10-14-2024 Tobacco smoking status Light tobacco smoker (finding) [facility] Tobacco smoking status Smoker (finding) [facility] Sexual Orientation [facility] Medical Equipment Procedure Code Equipment Code Equipment Origin al Text Equipment Identifier Dates Mesh Hrn Plg 2cm Med Pp Srgpro Rpl [id number] - Sna - [id number] Start: 11-25-2018 Mesh 15x9cm [employer] Progrip Slf Fx Srg - Sna - [id number] Start: 07-23-2022 Comment on above: Description: Cut to 9 cm x 6 cm p/t implanting. Functional Status Date Assessment Result Facility 11-26-2024 Generalized anxiety disorder 7 item (GIBRAN- 7) [facility] Clinical Notes 04-25-2021 to 11-26-2024 Vasiliy Meza, DO - 11/26/2024 10:30 AM [facility] 08/26/2024 11:20 AM [facility] Castellanos, [facility] - 07/27/2024 1:40 PM EDTPatient InstructionsAttachmentsAttachments Note Date & Type Note Facility 11-26-2024 History of Present illness Narrative Subjective Patient ID: Ha Krishnamurthy is a 49 y.o. male. Ha presents today for a couple problems. He has had a left ear ache x 2 weeks. Using medicated drops from the pharmacy with little relief. It pops and cracks and he has trouble hearing low pitch sounds. He started with low back pain on Saturday. He has had this many times in the past. There was no injury. It is radiating out to the sides. It does not radiate down his legs. He has no bowel or bladder symptoms. It is getting worse. He has tried tylenol arthritis, ibuprofen and tramadol with no improvement. It is interfering with sleep. The following portions of the patient's history were reviewed and updated as appropriate: allergies, current medications, past family history, past medical history, past social history, past surgical history, problem list, and medication reconciliation was completed including current medication and post discharge medication. Review of Systems Gastrointestinal: Negative. Genitourinary: Negative. Musculoskeletal: Positive for back pain and gait problem. Objective Physical Exam Vitals reviewed. Exam conducted with a wall taper present. Constitutional: General: He is not in acute distress. Appearance: He is not ill-appearing. HENT: Head: Normocephalic. Right Ear: Tympanic membrane, ear canal and external ear normal. Left Ear: No middle ear effusion. There is no impacted cerumen. No mastoid tenderness. Tympanic membrane is retracted. Tympanic membrane is not injected, perforated or erythematous. Ears: Gonzalez exam findings: Lateralizes right. Nose: Nose normal. Mouth/Throat: Lips: [place]. Mouth: Mucous membranes are moist. Palate: No mass and lesions. Pharynx: Pharyngeal swelling present. Comments: Left soft palate riding lower than right. Sensitive gag reflex so difficult to see Eyes: Extraocular Movements: Extraocular movements intact. Conjunctiva/sclera: Conjunctivae normal. Cardiovascular: Rate and Rhythm: Normal rate and regular rhythm. Heart sounds: Normal heart sounds. No murmur heard. Pulmonary: Effort: Pulmonary effort is normal. No respiratory distress. Breath sounds: Normal breath sounds. No wheezing, rhonchi or rales. Musculoskeletal: Cervical back: Neck supple. No rigidity or tenderness. Lumbar back: Spasms, tenderness and bony tenderness present. No swelling, edema, deformity, signs of trauma or lacerations. Decreased range of motion. Negative right straight leg raise test and negative left straight leg raise test. No scoliosis. Right lower leg: No edema. Left lower leg: No edema. Lymphadenopathy: Cervical: No cervical adenopathy. Neurological: General: No focal deficit present. Mental Status: He is alert and oriented to person, place, and time. Cranial Nerves: Cranial nerves 2-12 are intact. Gait: Gait abnormal (alightly antalgic). Psychiatric: Mood and Affect: Mood normal. Behavior: Behavior normal. Assessment/Plan Ha was seen today for earache and severe back pain. Diagnoses and all orders for this visit: Disorder of left eustachian tube I suspect a left Eustachian tube dysfunction. We will treat with prednisone 20 mg twice a day for 5 days. Also fluticasone nasal spray 2 sprays in each nostril daily. Cross-arm technique demonstrated. Slight asymmetry of the posterior pharynx noted on exam and will need to be rechecked. Was difficult to look in there due to his sensitive gag reflex. Lumbar paraspinal muscle spasm - tiZANidine (ZANAFLEX) 2 mg tablet; Take 1 tablet (2 mg total) by mouth every 8 (eight) hours as needed for muscle spasms. We will treat with a steroid burst and renew tizanidine 2 mg every 8 hours as needed for muscle spasms. It is recurrence of an old problem. There are no warning signs. Cigarette smoker He is a cigarette smoker. He was encouraged to quit. Other orders - predniSONE (DELTASONE) 20 mg tablet; Take 1 tablet (20 mg total) by mouth in the morning and 1 tablet (20 mg total) before bedtime. Do all this for 5 days. - fluticasone propionate (FLONASE) 50 mcg/actuation nasal spray; Administer 2 sprays into each nostril in the morning. documented in this encounter [facility] 10-14-2024 Hospital Discharge instructions Patient Education 10/14/2024 16:27:12 Neurogenic Bladder Neurogenic Bladder Neurogenic bladder is a bladder control disorder. It is usually caused by problems with the nerves that control the bladder. The brain sends signals through the spinal cord to the muscles in the bladder that start and stop urine flow. With neurogenic bladder, the nerves and muscles do not work together the way they should. This condition may make the bladder overactive, meaning you have trouble holding urine. In other cases, it may make the bladder underactive. This means that you have trouble passing urine. What are the causes? This condition may be caused by nerve damage or a condition that disrupts the signals from your brain to your bladder. Many things can cause these nerve problems, including: A disease that affects the nervous system, such as: ?Alzheimer's disease. ?Cerebral palsy. ?Multiple sclerosis. ?Diabetes. ?Parkinson's disease. Damage to your brain or spinal cord. This can come from: ?Trauma. ?Tumors. ?Infection. ?Surgery. ?Alcohol abuse. ?Stroke. ?A congenital disability that affects the spinal cord. What increases the risk? You are more likely to develop this condition if you have nerve damage or a nerve disorder. What are the signs or symptoms? Signs and symptoms of this condition include: Leaking or gushing urine (incontinence). A sudden, strong urge to pass urine (urgency). Frequent urination during the day and night. Being unable to empty your bladder completely (urinary retention). Frequent urinary tract infections. How is this diagnosed? This condition may be diagnosed based on: Your symptoms and medical history. A physical exam. Records from a bladder diary. You may be asked to keep a record or log of your bladder symptoms and the times that you urinate. You may also have tests, such as: A urine test to check for infection. A bladder scan after you urinate to see how much urine is left in your bladder. Tests to measure your urine flow and see how well the flow is controlled (urodynamic tests). A procedure that uses a small device with a camera to look through your urethra into your bladder (cystoscopy). A health care provider who specializes in the urinary tract (urologist) may do this test. Imaging tests of your brain or spine, such as MRI or CT scan. How is this treated? Treatment for this condition depends on the cause and the symptoms that you have. Work closely with your health care provider to find the treatments that will improve your quality of life. Treatment options include: Learning ways to control when you urinate, such as: ?Urinating at scheduled times. ?Training yourself to delay urination. ?Exercises to strengthen the muscles that control urine flow (Kegel exercises). ?Avoiding foods or drinks that make your symptoms worse. Taking medicines to: ?Stimulate an underactive bladder. ?Relax an overactive bladder. ?Treat a urinary tract infection. Learning how to use a thin tube (catheter) to empty your bladder. A catheter is a hollow tube that you pass through your urethra. Procedures to stimulate the nerves that control your bladder. Surgery, if other treatments do not help. Follow these instructions at home: Lifestyle Keep a bladder diary to find out which foods, liquids, or activities make your symptoms worse. Use your bladder diary to schedule bathroom trips. If you are away from home, plan to be near a bathroom when your schedule says you will need one. Limit beverages that stimulate urination. These include soda, coffee, and tea. After urinating, wait a few minutes and try again. Make sure you urinate just before you leave the house and just before you go to bed. Kegel exercises Do Kegel exercises to strengthen the muscles that control the passing of urine. These muscles are the ones you use to try to hold urine when you need to urinate. To do Kegel exercises: 1.Squeeze your pelvic floor muscles tight, as if you are trying to stop the flow of urine. You should feel a tight lift in your rectal area. If you are female, you should also feel a tightness in your vaginal area. Keep your stomach, buttocks, and legs relaxed. 2.Hold the muscles tight for 5 10 seconds. 3.Relax your muscles for the same amount of time. 4.Repeat 10 times. Repeat this exercise 3 times a day or as many times as told by your health care provider. General instructions Take zpug-lxl-oxtutsy and prescription medicines only as told by your health care provider. Keep all follow-up visits. This is important. Contact a health care provider if: You are having a hard time controlling your symptoms. Your symptoms are getting worse. You have signs of a urinary tract infection. These may include: ?A burning feeling when you urinate. ?Fever or chills. ?Cloudy or bloody urine. Get help right away if: You cannot pass urine. Summary Neurogenic bladder is a bladder control disorder caused by problems with the nerves that control the bladder. This condition may make the bladder overactive or underactive. This condition may be caused by nerve damage or a condition that disrupts the signals from your brain to your bladder. Treatment depends on the cause of your neurogenic bladder and the symptoms that you have. Work closely with your health care provider to find the treatments that will improve your quality of life. This information is not intended to replace advice given to you by your health care provider. Make sure you discuss any questions you have with your health care provider. Document Revised: 11/10/2020 Document Reviewed: 11/10/2020 [employer] Patient Education 2023 [employer]. 10/14/2024 16:27:07 Dysuria Dysuria Dysuria is pain or discomfort during urination. The pain or discomfort may be felt in the part of the body that drains urine from the bladder (urethra) or in the surrounding tissue of the genitals. The pain may also be felt in the groin area, lower abdomen, or lower back. You may have to urinate frequently or have the sudden feeling that you have to urinate (urgency). Dysuria can affect anyone, but it is more common in females. Dysuria can be caused by many different things, including: Urinary tract infection. Kidney stones or bladder stones. Certain STIs (sexually transmitted infections), such as chlamydia. Dehydration. Inflammation of the tissues of the vagina. Use of certain medicines. Use of certain soaps or scented products that cause irritation. Follow these instructions at home: Medicines Take lxnq-pay-pgrmxag and prescription medicines only as told by your health care provider. If you were prescribed an antibiotic medicine, take it as told by your health care provider. Do not stop taking the antibiotic even if you start to feel better. Eating and drinking Drink enough fluid to keep your urine pale yellow. Avoid caffeinated beverages, tea, and alcohol. These beverages can irritate the bladder and make dysuria worse. In males, alcohol may irritate the prostate. General instructions Watch your condition for any changes. Urinate often. Avoid holding urine for long periods of time. If you are female, you should wipe from front to back after urinating or having a bowel movement. Use each piece of toilet paper only once. Empty your bladder after sex. Keep all follow-up visits. This is important. If you had any tests done to find the cause of dysuria, it is up to you to get your test results. Ask your health care provider, or the department that is doing the test, when your results will be ready. Contact a health care provider if: You have a fever. You develop pain in your back or sides. You have nausea or vomiting. You have blood in your urine. You are not urinating as often as you usually do. Get help right away if: Your pain is severe and not relieved with medicines. You cannot eat or drink without vomiting. You are confused. You have a rapid heartbeat while resting. You have shaking or chills. You feel extremely weak. Summary Dysuria is pain or discomfort while urinating. Many different conditions can lead to dysuria. If you have dysuria, you may have to urinate frequently or have the sudden feeling that you have to urinate (urgency). Watch your condition for any changes. Keep all follow-up visits. Make sure that you urinate often and drink enough fluid to keep your urine pale yellow. This information is not intended to replace advice given to you by your health care provider. Make sure you discuss any questions you have with your health care provider. Document Revised: 10/07/2020 Document Reviewed: 10/07/2020 [employer] 2023 [employer]. Follow Up Care 10/02/2024 12:42:44 With:Rajni Chen PA-C, URL Address: When: Unknown Comments:F/U in 2 months [facility] 10-14-2024 Note Patient Education Urology Neurogenic Bladder Neurogenic bladder is a bladder control disorder. It is usually caused by problems with the nerves that control the bladder. The brain sends signals through the spinal cord to the muscles in the bladder that start and stop urine flow. With neurogenic bladder, the nerves and muscles do not work together the way they should. This condition may make the bladder overactive, meaning you have trouble holding urine. In other cases, it may make the bladder underactive. This means that you have trouble passing urine. What are the causes? This condition may be caused by nerve damage or a condition that disrupts the signals from your brain to your bladder. Many things can cause these nerve problems, including: ??? A disease that affects the nervous system, such as: ? Alzheimer's disease. ? Cerebral palsy. ? Multiple sclerosis. ? Diabetes. ? Parkinson's disease. ??? Damage to your brain or spinal cord. This can come from: ? Trauma. ? Tumors. ? Infection. ? Surgery. ? Alcohol abuse. ? Stroke. ? A congenital disability that affects the spinal cord. What increases the risk? You are more likely to develop this condition if you have nerve damage or a nerve disorder. What are the signs or symptoms? Signs and symptoms of this condition include: ??? Leaking or gushing urine (incontinence). ??? A sudden, strong urge to pass urine (urgency). ??? Frequent urination during the day and night. ??? Being unable to empty your bladder completely (urinary retention). ??? Frequent urinary tract infections. How is this diagnosed? This condition may be diagnosed based on: ??? Your symptoms and medical history. ??? A physical exam. ??? Records from a bladder diary. You may be asked to keep a record or log of your bladder symptoms and the times that you urinate. You may also have tests, such as: ??? A urine test to check for infection. ??? A bladder scan after you urinate to see how much urine is left in your bladder. ??? Tests to measure your urine flow and see how well the flow is controlled (urodynamic tests). ??? A procedure that uses a small device with a camera to look through your urethra into your bladder (cystoscopy). A health care provider who specializes in the urinary tract (urologist) may do this test. ??? Imaging tests of your brain or spine, such as MRI or CT scan. How is this treated? Treatment for this condition depends on the cause and the symptoms that you have. Work closely with your health care provider to find the treatments that will improve your quality of life. Treatment options include: ??? Learning ways to control when you urinate, such as: ? Urinating at scheduled times. ? Training yourself to delay urination. ? Exercises to strengthen the muscles that control urine flow (Kegel exercises). ? Avoiding foods or drinks that make your symptoms worse. ??? Taking medicines to: ? Stimulate an underactive bladder. ? Relax an overactive bladder. ? Treat a urinary tract infection. ??? Learning how to use a thin tube (catheter) to empty your bladder. A catheter is a hollow tube that you pass through your urethra. ??? Procedures to stimulate the nerves that control your bladder. ??? Surgery, if other treatments do not help. Follow these instructions at home: Lifestyle ??? Keep a bladder diary to find out which foods, liquids, or activities make your symptoms worse. ??? Use your bladder diary to schedule bathroom trips. If you are away from home, plan to be near a bathroom when your schedule says you will need one. ??? Limit beverages that stimulate urination. These include soda, coffee, and tea. ??? After urinating, wait a few minutes and try again. ??? Make sure you urinate just before you leave the house and just before you go to bed. Kegel exercises Do Kegel exercises to strengthen the muscles that control the passing of urine. These muscles are the ones you use to try to hold urine when you need to urinate. To do Kegel exercises: 1. Squeeze your pelvic floor muscles tight, as if you are trying to stop the flow of urine. You should feel a tight lift in your rectal area. If you are female, you should also feel a tightness in your vaginal area. Keep your stomach, buttocks, and legs relaxed. 2. Hold the muscles tight for 5?10 seconds. 3. Relax your muscles for the same amount of time. 4. Repeat 10 times. Repeat this exercise 3 times a day or as many times as told by your health care provider. General instructions ??? Take foil-ikb-kcgurct and prescription medicines only as told by your health care provider. ??? Keep all follow-up visits. This is important. Contact a health care provider if: ??? You are having a hard time controlling your symptoms. ??? Your symptoms are getting worse. ??? You have signs of a urinary tract infection. These may include: ? A bur (more content not included)... [facility] 08-26-2024 History of Present illness Narrative Images from the original note were not included. Chief Complaint Patient presents with Anxiety [address] [place] [address] SUBJECTIVE: Patient ID: Ha Krishnamurthy is a 48 y.o. male. Chief Complaint Patient presents with Anxiety Patient is presenting today with increased panic attacks and agoraphobia. States when he is around people, including his mother whom he resides with, he because diaphoretic and nauseous. He has difficulties sitting in our office waiting room today. He does have history of schizophrenia. He denies auditory and visual hallucinations today. He takes lorazepam which always help with his panic attacks and agoraphobia. States it is not working for him. Onset of changes started approximately one week ago. He denies any new stressors or triggers in his life at this time. Patient is monitored by psychiatry, states he has an appointment tomorrow. Anxiety Presents for follow-up visit. Symptoms include compulsions, confusion, decreased concentration, feeling of choking, hyperventilation, malaise, muscle tension, nausea, nervous/anxious behavior, palpitations, panic and restlessness. Patient reports no chest pain or shortness of breath. Symptoms occur most days. The severity of symptoms is causing significant distress. The quality of sleep is good. Nighttime awakenings: none. The following portions of the patient's history were reviewed and updated as appropriate: allergies, current medications, past family history, past medical history, past social history, past surgical history and problem list. Past Surgical History: Procedure Laterality Date COLONOSCOPY 08/2019 CYSTOSCOPY 08/08/2018 DAVINCI REPAIR HERNIA EPIGASTRIC N/A 07/23/2022 Performed by Tracie Iraheta MD at [facility] ESOPHAGOGASTRODUODENOSCOPY INCISION AND DRAINAGE SCROTUM Right 01/19/2020 Performed by Rich Rhodes DO at [facility] ORCHIECTOMY Right 01/05/2020 Performed by Rich Rhodes DO at [facility] REPAIR HERNIA INGUINAL MESH Right 11/25/2018 Performed by Rich Rhodes DO at [facility] UPPER GASTROINTESTINAL ENDOSCOPY 08/2019 Past Medical History: Diagnosis Date Agoraphobia Allergic contact dermatitis due to other agents 03/27/2017 Anxiety Asthma Bladder infection 12/2018 Cervical adenopathy 08/25/2018 Chronic pain of right knee 11/08/2016 Colitis PATIENT SAYS HE WAS Dx BY DR WRIGHT [place] [place] disease no teeth; dentures at home Emphyse[place] of lung [place] [place] Epididymitis GERD (gastroesophageal reflux disease) H. pylori infection Hematemesis/vomiting blood states has been occurring x 1.5 mths Inguinal lymphadenopathy 10/20/2018 Kidney stone 01/05/2019 Kidney stones 2019 Migraines Muscle strain of upper back 10/07/2018 Paranoid schizophrenia [place] [place] PTSD (post-traumatic stress disorder) Schizoaffective disorder [place] Social anxiety disorder Strain of right trapezius muscle 09/30/2019 Urinary retention Urinary retention 08/25/2018 Visual impairment glasses Immunization History Administered Date(s) Administered COVID-19, mRNA, LNP-S, PF, 100mcg/0.5mL Dose 05/12/2020, 06/09/2020, 01/09/2021, 07/31/2021 Covid-19, Mrna, Lnp-s, Bivalent, Pf, 30mcg/0.3 ml 12/07/2021 Covid-19,mrna, Lnp-s, Pf, 50mcg/0.5ml 12+ Seasonal 12/01/2022, 12/01/2023 Influenza Tri-valent Im, Adult 12/01/2023 Influenza, Injectable, quadrivalent (PF) 01/03/2017, 10/21/2017, 12/30/2018, 11/27/2021, 12/05/2022 Influenza, Recombinant, Quadrivalent, Injectable, Preserv 12/11/2019, 12/09/2020 Pneumococcal Conjugate 13-Valent 12/30/2018 REVIEW OF SYSTEMS: Review of Systems Constitutional: Negative for chills, fatigue and fever. HENT: Negative for hearing loss and trouble swallowing. Eyes: Negative for pain and visual disturbance. Respiratory: Negative for cough, chest tightness and shortness of breath. Cardiovascular: Positive for palpitations. Negative for chest pain and leg swelling. Gastrointestinal: Positive for nausea. Negative for blood in stool. Endocrine: Negative for polydipsia, polyphagia and polyuria. Genitourinary: Negative for difficulty urinating, dysuria, flank pain, hematuria, scrotal swelling and testicular pain. Musculoskeletal: Negative. Skin: Negative. Allergic/Immunologic: Negative. Neurological: Negative for seizures, syncope and headaches. Hematological: Does not bruise/bleed easily. Psychiatric/Behavioral: Positive for confusion and decreased concentration. The patient is nervous/anxious. PHYSICAL EXAMINATION: Vitals: 08/26/24 1101 BP: 118/70 BP Site: Left Arm BP Postition: Sitting Pulse: 71 Resp: 16 Temp: 36.8 C (98.2 F) TempSrc: Tympanic SpO2: 100% Weight: 53.8 kg (118 lb 9.6 oz) Height: 170.2 cm (5' 7 ) Patient noted to have elevated BMI and the following intervention(s) were applied: encouragement to exercise. Physical Exam Vitals and nursing note reviewed. Constitutional: General: He is not in acute distress. Appearance: He is well-developed. HENT: Head: Normocephalic and atraumatic. Right Ear: Tympanic membrane and external ear normal. Left Ear: Tympanic membrane and external ear normal. Nose: Nose normal. Mouth/Throat: Mouth: Mucous membranes are moist. Pharynx: No oropharyngeal exudate. Eyes: General: No scleral icterus. Right eye: No discharge. Left eye: No discharge. Conjunctiva/sclera: Conjunctivae normal. Pupils: Pupils are equal, round, and reactive to light. Neck: Vascular: No JVD. Cardiovascular: Rate and Rhythm: Normal rate and regular rhythm. Heart sounds: Normal heart sounds. No murmur heard. No friction rub. No gallop. Pulmonary: Effort: Pulmonary effort is normal. No respiratory distress. Breath sounds: Normal breath sounds. Chest: Chest wall: No tenderness. Abdominal: General: Bowel sounds are normal. There is no distension. Palpations: Abdomen is soft. There is no mass. Tenderness: There is no abdominal tenderness. There is no guarding or rebound. Hernia: No hernia is present. Musculoskeletal: General: No tenderness. Normal range of motion. Cervical back: Normal range of motion and neck supple. Lymphadenopathy: Cervical: No cervical adenopathy. Skin: General: Skin is warm and dry. Capillary Refill: Capillary refill takes less than 2 seconds. Findings: No rash. Neurological: Mental Status: He is alert and oriented to person, place, and time. Deep Tendon Reflexes: Reflexes are normal and symmetric. Psychiatric: Mood and Affect: Mood normal. Behavior: Behavior normal. Thought Content: Thought content normal. Judgment: Judgment normal. Comments: Appears anxious today ASSESSMENT/PLAN: Ha was seen today for anxiety. Diagnoses and all orders for this visit: Agoraphobia with panic attacks - LORazepam (ATIVAN) 1 mg tablet; Take 1 tablet (1 mg total) by mouth every 12 (twelve) hours as needed for anxiety. Anxiety about health - LORazepam (ATIVAN) 1 mg tablet; Take 1 tablet (1 mg total) by mouth every 12 (twelve) hours as needed for anxiety. Generalized anxiety disorder with panic attacks - LORazepam (ATIVAN) 1 mg tablet; Take 1 tablet (1 mg total) by mouth every 12 (twelve) hours as needed for anxiety. Discussed at length regarding any potential triggers. He denies any new changes in his life. Is having significant distress being around people, including his mother whom he lives with. Has psychiatry appointment tomorrow. I ask he also discuss his panic and agoraphobia changing with his provider. Change lorazepam to 1 mg oral every 12 hours. The OARRS/MAPPS database was reviewed today and found to be appropriate. No indication of medication diversion, or non compliance. ALL QUESTIONS ANSWERED Total time spent was 25 minutes: Preparing to see the patient (e.g., review of tests) Obtaining and/or reviewing separately obtained history Performing a medically appropriate examination and/or evaluation Counseling and educating the patient/family/caregiver Ordering medications, tests, or procedures Follow-up: Next scheduled SULEIMAN Lozano 08/26/24 1136 documented in this encounter [facility] 07-27-2024 History of Present illness Narrative Images from the original note were not included. [address] [place] [address] SUBJECTIVE: Patient ID: Ha Krishnamurthy is a 48 y.o. male. Chief Complaint Patient presents with controlled substance Presents for anxiety follow up Is monitored by psychiatry every 3 months. He is also in counseling monthly. Feels his panic during the day is controlled with lorazepam. He has agoraphobia with panic attacks. In order to leave and go places, he does need to take lorazepam. States his mom is in a halfway for rehab, this makes him nervous. He lives with his mother and cares for her. Offers no concerns today. The following portions of the patient's history were reviewed and updated as appropriate: allergies, current medications, past family history, past medical history, past social history, past surgical history and problem list. Past Surgical History: Procedure Laterality Date COLONOSCOPY 08/2019 CYSTOSCOPY 08/08/2018 DAVINCI REPAIR HERNIA EPIGASTRIC N/A 07/23/2022 Performed by Tracie Iraheta MD at [facility] ESOPHAGOGASTRODUODENOSCOPY INCISION AND DRAINAGE SCROTUM Right 01/19/2020 Performed by Rich Rhodes DO at [facility] ORCHIECTOMY Right 01/05/2020 Performed by Rich Rhodes DO at [facility] REPAIR HERNIA INGUINAL MESH Right 11/25/2018 Performed by Rich Rhodes DO at [facility] UPPER GASTROINTESTINAL ENDOSCOPY 08/2019 Past Medical History: Diagnosis Date Agoraphobia Allergic contact dermatitis due to other agents 03/27/2017 Anxiety Asthma Bladder infection 12/2018 Cervical adenopathy 08/25/2018 Chronic pain of right knee 11/08/2016 Colitis PATIENT SAYS HE WAS Dx BY DR WRIGHT [place] [place] disease no teeth; dentures at home Emphysema of lung [place] [place] Epididymitis GERD (gastroesophageal reflux disease) H. pylori infection Hematemesis/vomiting blood states has been occurring x 1.5 mths Inguinal lymphadenopathy 10/20/2018 Kidney stone 01/05/2019 Kidney stones 2019 Migraines Muscle strain of upper back 10/07/2018 Paranoid schizophrenia [place] [place] PTSD (post-traumatic stress disorder) Schizoaffective disorder [place] [place] Social anxiety disorder Strain of right trapezius muscle 09/30/2019 Urinary retention Urinary retention 08/25/2018 Visual impairment glasses Immunization History Administered Date(s) Administered COVID-19, mRNA, LNP-S, PF, 100mcg/0.5mL Dose 05/12/2020, 06/09/2020, 01/09/2021, 07/31/2021 Covid-19, Mrna, Lnp-s, Bivalent, Pf, 30mcg/0.3 ml 12/07/2021 Covid-19,mrna, Lnp-s, Pf, 50mcg/0.5ml 12+ Seasonal 12/01/2022, 12/01/2023 Influenza Tri-valent Im, Adult 12/01/2023 Influenza, Injectable, quadrivalent (PF) 01/03/2017, 10/21/2017, 12/30/2018, 11/27/2021, 12/05/2022 Influenza, Recombinant, Quadrivalent, Injectable, Preserv 12/11/2019, 12/09/2020 Pneumococcal Conjugate 13-Valent 12/30/2018 REVIEW OF SYSTEMS: Review of Systems Constitutional: Negative for chills, fatigue and fever. HENT: Negative for hearing loss and trouble swallowing. Eyes: Negative for pain and visual disturbance. Respiratory: Negative for cough, chest tightness and shortness of breath. Cardiovascular: Negative for chest pain, palpitations and leg swelling. Gastrointestinal: Negative for blood in stool. Endocrine: Negative for polydipsia, polyphagia and polyuria. Genitourinary: Negative for difficulty urinating, dysuria, flank pain, hematuria, scrotal swelling and testicular pain. Musculoskeletal: Negative. Skin: Negative. Allergic/Immunologic: Negative. Neurological: Negative for seizures, syncope and headaches. Hematological: Does not bruise/bleed easily. Psychiatric/Behavioral: Negative. PHYSICAL EXAMINATION: Vitals: 07/27/24 1335 BP: 120/88 BP Site: Left Arm BP Postition: Sitting BP CUFF SIZE: S (7-9 inches) Pulse: 69 Resp: 20 Temp: 36.6 C (97.8 F) TempSrc: Tympanic SpO2: 98% Weight: 54 kg (119 lb) Height: 170.2 cm (5' 7.01 ) Patient noted to have elevated BMI and the following intervention(s) were applied: encouragement to exercise. Physical Exam Vitals and nursing note reviewed. Constitutional: General: He is not in acute distress. Appearance: He is well-developed. HENT: Head: Normocephalic and atraumatic. Right Ear: Tympanic membrane and external ear normal. Left Ear: Tympanic membrane and external ear normal. Nose: Nose normal. Mouth/Throat: Mouth: Mucous membranes are moist. Pharynx: No oropharyngeal exudate. Eyes: General: No scleral icterus. Right eye: No discharge. Left eye: No discharge. Conjunctiva/sclera: Conjunctivae normal. Pupils: Pupils are equal, round, and reactive to light. Neck: Vascular: No JVD. Cardiovascular: Rate and Rhythm: Normal rate and regular rhythm. Heart sounds: Normal heart sounds. No murmur heard. No friction rub. No gallop. Pulmonary: Effort: Pulmonary effort is normal. No respiratory distress. Breath sounds: Normal breath sounds. Chest: Chest wall: No tenderness. Abdominal: General: Bowel sounds are normal. There is no distension. Palpations: Abdomen is soft. There is no mass. Tenderness: There is no abdominal tenderness. There is no guarding or rebound. Hernia: No hernia is present. Musculoskeletal: General: No tenderness. Normal range of motion. Cervical back: Normal range of motion and neck supple. Lymphadenopathy: Cervical: No cervical adenopathy. Skin: General: Skin is warm and dry. Capillary Refill: Capillary refill takes less than 2 seconds. Findings: No rash. Neurological: Mental Status: He is alert and oriented to person, place, and time. Deep Tendon Reflexes: Reflexes are normal and symmetric. Psychiatric: Mood and Affect: Mood normal. Behavior: Behavior normal. Thought Content: Thought content normal. Judgment: Judgment normal. ASSESSMENT/PLAN: Ha was seen today for controlled substance. Diagnoses and all orders for this visit: Agoraphobia with panic attacks Narcotic use agreement exists - Benzodiazepine cnf urine; Future - Benzodiazepine cnf urine Continue lorazepam 0.5 mg oral every 12 hours PRN anxiety Is monitored by psychiatry every 3 months. He is also in counseling monthly Feels his panic during the day is controlled with lorazepam. The OARRS/MAPPS database was reviewed today and found to be appropriate. No indication of medication diversion, or non compliance. Patient is a current smoker, smoking cessation discussed today in office. States he has been slowly cutting back on smoking. Is currently smoking 7 cigarettes per day. ALL QUESTIONS ANSWERED Total time spent was 25 minutes: Preparing to see the patient (e.g., review of tests) Obtaining and/or reviewing separately obtained history Performing a medically appropriate examination and/or evaluation Counseling and educating the patient/family/caregiver Ordering medications, tests, or procedures Follow-up: Narcotic agreement, lorazepam SULEIMAN oLzano 07/27/24 1402 documented in this encounter [facility] 07-20-2024 History of Present illness Narrative The OARRS/MAPPS database was reviewed today and found to be appropriate. No indication of medication diversion, or non compliance. SULEIMAN Lozano 07/20/24 0907 documented in this encounter [facility] 07-13-2024 History of Present illness Narrative Images from the original note were not included. [address] [facility] [id number] SUBJECTIVE: Patient ID: Ha Krishnamurthy is a 48 y.o. male. Chief Complaint Patient presents with F/U from [facility] severe back pain Presents for back pain follow up He did go to [place] [facility] on 07.04.24 for bilateral lower back pain. He states he went to ER after pain started shortly after he sneezed. He did have a lumbar xray in ER which revealed no acute process. Today, he does not feel the pain is any better. He was prescribed motrin and Robaxin. States he stopped the Robaxin as it was making him nauseous. Still has muscle spasms. Pain has been keeping him from sleeping through the night. Denies loss of bowel or bladder function. Was seen for similar pain back in February 2024. He states steroidal injection did help his pain. Patient will not take oral steroids due to causing mood changes. Back Pain This is a new problem. The current episode started 1 to 4 weeks ago. The problem occurs daily. The problem has been waxing and waning since onset. The pain is present in the lumbar spine. The quality of the pain is described as aching, burning, cramping and stabbing. The pain does not radiate. The pain is at a severity of 6/10. The pain is The same all the time. The symptoms are aggravated by bending, lying down, coughing, position, sitting, standing and twisting. Associated symptoms include weakness. Pertinent negatives include no abdominal pain, bladder incontinence, bowel incontinence, chest pain, dysuria, fever, headaches, leg pain, numbness, paresis, paresthesias, pelvic pain, perianal numbness, tingling or weight loss. He has tried walking, NSAIDs, Robaxin, and bed rest for the symptoms. The treatment provided no relief. The following portions of the patient's history were reviewed and updated as appropriate: allergies, current medications, past family history, past medical history, past social history, past surgical history and problem list. Past Surgical History: Procedure Laterality Date COLONOSCOPY 08/2019 CYSTOSCOPY 08/08/2018 DAVINCI REPAIR HERNIA EPIGASTRIC N/A 07/23/2022 Performed by Tracie Iraheta MD at [facility] ESOPHAGOGASTRODUODENOSCOPY INCISION AND DRAINAGE SCROTUM Right 01/19/2020 Performed by Rich Rhodes DO at [facility] ORCHIECTOMY Right 01/05/2020 Performed by Rich Rhodes DO at [facility] REPAIR HERNIA INGUINAL MESH Right 11/25/2018 Performed by iRch Rhodes DO at [facility] UPPER GASTROINTESTINAL ENDOSCOPY 08/2019 Past Medical History: Diagnosis Date Agoraphobia Allergic contact dermatitis due to other agents 03/27/2017 Anxiety Asthma Bladder infection 12/2018 Cervical adenopathy 08/25/2018 Chronic pain of right knee 11/08/2016 Colitis PATIENT SAYS HE WAS Dx BY DR WRIGHT [place] [place] no teeth; dentures at home Emphyse[place] of lung [place] [place] Epididymitis GERD (gastroesophageal reflux disease) H. pylori infection Hematemesis/vomiting blood states has been occurring x 1.5 mths Inguinal lymphadenopathy 10/20/2018 Kidney stone 01/05/2019 Kidney stones 2019 Migraines Muscle strain of upper back 10/07/2018 Paranoid schizophrenia [place] [place] PTSD (post-traumatic stress disorder) Schizoaffective disorder [place] [place] Social anxiety disorder Strain of right trapezius muscle 09/30/2019 Urinary retention Urinary retention 08/25/2018 Visual impairment glasses Immunization History Administered Date(s) Administered COVID-19, mRNA, LNP-S, PF, 100mcg/0.5mL Dose 05/12/2020, 06/09/2020, 01/09/2021, 07/31/2021 Covid-19, Mrna, Lnp-s, Bivalent, Pf, 30mcg/0.3 ml 12/07/2021 Covid-19,mrna, Lnp-s, Pf, 50mcg/0.5ml 12+ Seasonal 12/01/2022, 12/01/2023 Influenza Tri-valent Im, Adult 12/01/2023 Influenza, Injectable, quadrivalent (PF) 01/03/2017, 10/21/2017, 12/30/2018, 11/27/2021, 12/05/2022 Influenza, Recombinant, Quadrivalent, Injectable, Preserv 12/11/2019, 12/09/2020 Pneumococcal Conjugate 13-Valent 12/30/2018 REVIEW OF SYSTEMS: Review of Systems Constitutional: Negative for chills, fatigue and fever. HENT: Negative for hearing loss and trouble swallowing. Eyes: Negative for pain and visual disturbance. Respiratory: Negative for cough, chest tightness and shortness of breath. Cardiovascular: Negative for chest pain, palpitations and leg swelling. Gastrointestinal: Negative for blood in stool. Endocrine: Negative for polydipsia, polyphagia and polyuria. Genitourinary: Negative for difficulty urinating, dysuria, flank pain, hematuria, scrotal swelling and testicular pain. Musculoskeletal: Positive for back pain and myalgias. Skin: Negative. Allergic/Immunologic: Negative. Neurological: Negative for seizures, syncope and headaches. Hematological: Does not bruise/bleed easily. Psychiatric/Behavioral: Negative. PHYSICAL EXAMINATION: Vitals: 07/13/24 1347 BP: 140/84 BP Site: Left Arm BP Postition: Sitting BP CUFF SIZE: S (7-9 inches) Pulse: 79 Resp: 16 Temp: 37.1 C (98.8 F) TempSrc: Tympanic SpO2: 99% Weight: 56.3 kg (124 lb 3.2 oz) Height: 170.2 cm (5' 7.01 ) Patient noted to have elevated BMI and the following intervention(s) were applied: encouragement to exercise. Physical Exam Vitals and nursing note reviewed. Constitutional: General: He is not in acute distress. Appearance: He is well-developed. HENT: Head: Normocephalic and atraumatic. Right Ear: Tympanic membrane and external ear normal. Left Ear: Tympanic membrane and external ear normal. Nose: Nose normal. Mouth/Throat: Mouth: Mucous membranes are moist. Pharynx: No oropharyngeal exudate. Eyes: General: No scleral icterus. Right eye: No discharge. Left eye: No discharge. Conjunctiva/sclera: Conjunctivae normal. Pupils: Pupils are equal, round, and reactive to light. Neck: Vascular: No JVD. Cardiovascular: Rate and Rhythm: Normal rate and regular rhythm. Heart sounds: Normal heart sounds. No murmur heard. No friction rub. No gallop. Pulmonary: Effort: Pulmonary effort is normal. No respiratory distress. Breath sounds: Normal breath sounds. Chest: Chest wall: No tenderness. Abdominal: General: Bowel sounds are normal. There is no distension. Palpations: Abdomen is soft. There is no mass. Tenderness: There is no abdominal tenderness. There is no guarding or rebound. Hernia: No hernia is present. Musculoskeletal: General: Normal range of motion. Cervical back: Normal range of motion and neck supple. Lumbar back: Spasms, tenderness and bony tenderness present. Negative right straight leg raise test and negative left straight leg raise test. Back: Lymphadenopathy: Cervical: No cervical adenopathy. Skin: General: Skin is warm and dry. Capillary Refill: Capillary refill takes less than 2 seconds. Findings: No rash. Neurological: Mental Status: He is alert and oriented to person, place, and time. Deep Tendon Reflexes: Reflexes are normal and symmetric. Psychiatric: Mood and Affect: Mood normal. Behavior: Behavior normal. Thought Content: Thought content normal. Judgment: Judgment normal. ASSESSMENT/PLAN: Ha was seen today for f/u from [facility] severe back pain. Diagnoses and all orders for this visit: Lumbar paraspinal muscle spasm - tiZANidine (ZANAFLEX) 2 mg tablet; Take 1 tablet (2 mg total) by mouth every 8 (eight) hours as needed for muscle spasms. Lumbar back pain - methylPREDNISolone acetate (DEPO-MEDROL) injection 40 mg - ketorolac (TORADOL) injection 60 mg -Unable to tolerate oral steroids. He request no oral steroids as this increases his mental health symptoms. Administered Depo-Medrol 40 mg IM and Toradol 60 mg IM in office today -tizanidine 4 mg every 8 hours PRN for muscle spasms -tramadol 50 mg oral every 8 hours PRN pain. Dispense 3 day supply The OARRS/MAPPS database was reviewed today and found to be appropriate. No indication of medication diversion, or non compliance. Patient is a current smoker, smoking cessation discussed today in office. He/She is not interested at this time ALL QUESTIONS ANSWERED Follow-up: Next scheduled 07/27/24 SULEIMAN Lozano 07/13/24 1428 documented in this encounter [facility] 06-16-2024 History of Present illness Narrative Images from the original note were not included. [address] [facility] [id number] SUBJECTIVE: Patient ID: Ha Krishnamurthy is a 48 y.o. male. Chief Complaint Patient presents with ears no better Patient presents for left ear pain has not improved since last seen. Was prescribed Zpak. States his ear hurts when he tries to wear his ear buds. The following portions of the patient's history were reviewed and updated as appropriate: allergies, current medications, past family history, past medical history, past social history, past surgical history and problem list. Past Surgical History: Procedure Laterality Date COLONOSCOPY 08/2019 CYSTOSCOPY 08/08/2018 DAVINCI REPAIR HERNIA EPIGASTRIC N/A 07/23/2022 Performed by Tracie Iraheta MD at [facility] ESOPHAGOGASTRODUODENOSCOPY INCISION AND DRAINAGE SCROTUM Right 01/19/2020 Performed by Rich Rhodes DO at [facility] ORCHIECTOMY Right 01/05/2020 Performed by Rich Rhodes DO at [facility] REPAIR HERNIA INGUINAL MESH Right 11/25/2018 Performed by Rich Rhodes DO at [facility] UPPER GASTROINTESTINAL ENDOSCOPY 08/2019 Past Medical History: Diagnosis Date Agoraphobia Allergic contact dermatitis due to other agents 03/27/2017 Anxiety Asthma Bladder infection 12/2018 Cervical adenopathy 08/25/2018 Chronic pain of right knee 11/08/2016 Colitis PATIENT SAYS HE WAS Dx BY DR WRIGHT [place]ch[place] [place] disease no teeth; dentures at home Emphysema of lung [place] [place] Epididymitis GERD (gastroesophageal reflux disease) H. pylori infection Hematemesis/vomiting blood states has been occurring x 1.5 mths Inguinal lymphadenopathy 10/20/2018 Kidney stone 01/05/2019 Kidney stones 2019 Migraines Muscle strain of upper back 10/07/2018 Paranoid schizophrenia [place] [place] PTSD (post-traumatic stress disorder) Schizoaffective disorder [place] [place] Social anxiety disorder Strain of right trapezius muscle 09/30/2019 Urinary retention Urinary retention 08/25/2018 Visual impairment glasses Immunization History Administered Date(s) Administered COVID-19, mRNA, LNP-S, PF, 100mcg/0.5mL Dose 05/12/2020, 06/09/2020, 01/09/2021, 07/31/2021 Covid-19, Mrna, Lnp-s, Bivalent, Pf, 30mcg/0.3 ml 12/07/2021 Covid-19,mrna, Lnp-s, Pf, 50mcg/0.5ml 12+ 12/01/2022, 12/01/2023 Influenza Tri-valent Im, Adult 12/01/2023 Influenza, Injectable, quadrivalent (PF) 01/03/2017, 10/21/2017, 12/30/2018, 11/27/2021, 12/05/2022 Influenza, Recombinant, Quadrivalent, Injectable, Preserv 12/11/2019, 12/09/2020 Pneumococcal Conjugate 13-Valent 12/30/2018 REVIEW OF SYSTEMS: Review of Systems Constitutional: Negative for chills, fatigue and fever. HENT: Negative for hearing loss and trouble swallowing. Eyes: Negative for pain and visual disturbance. Respiratory: Negative for cough, chest tightness and shortness of breath. Cardiovascular: Negative for chest pain, palpitations and leg swelling. Gastrointestinal: Negative for blood in stool. Endocrine: Negative for polydipsia, polyphagia and polyuria. Genitourinary: Negative for difficulty urinating, dysuria, flank pain, hematuria, scrotal swelling and testicular pain. Musculoskeletal: Negative. Skin: Negative. Allergic/Immunologic: Negative. Neurological: Negative for seizures, syncope and headaches. Hematological: Does not bruise/bleed easily. Psychiatric/Behavioral: Negative. PHYSICAL EXAMINATION: Vitals: 06/16/24 1436 BP: 110/70 BP Site: Left Arm BP Postition: Sitting Pulse: 71 Resp: 18 Temp: 36.4 C (97.5 F) TempSrc: Oral SpO2: 99% Weight: 55.2 kg (121 lb 12.8 oz) Height: 170.2 cm (5' 7.01 ) Physical Exam Vitals and nursing note reviewed. Constitutional: General: He is not in acute distress. Appearance: He is well-developed. HENT: Head: Normocephalic and atraumatic. Right Ear: Tympanic membrane and external ear normal. Left Ear: External ear normal. Tympanic membrane is erythematous. Ears: Comments: Very mild erythema of TM Nose: Nose normal. Mouth/Throat: Mouth: Mucous membranes are moist. Pharynx: No oropharyngeal exudate. Eyes: General: No scleral icterus. Right eye: No discharge. Left eye: No discharge. Conjunctiva/sclera: Conjunctivae normal. Pupils: Pupils are equal, round, and reactive to light. Neck: Vascular: No JVD. Cardiovascular: Rate and Rhythm: Normal rate and regular rhythm. Heart sounds: Normal heart sounds. No murmur heard. No friction rub. No gallop. Pulmonary: Effort: Pulmonary effort is normal. No respiratory distress. Breath sounds: Normal breath sounds. Chest: Chest wall: No tenderness. Abdominal: General: Bowel sounds are normal. There is no distension. Palpations: Abdomen is soft. There is no mass. Tenderness: There is no abdominal tenderness. There is no guarding or rebound. Hernia: No hernia is present. Musculoskeletal: General: No tenderness. Normal range of motion. Cervical back: Normal range of motion and neck supple. Lymphadenopathy: Cervical: No cervical adenopathy. Skin: General: Skin is warm and dry. Capillary Refill: Capillary refill takes less than 2 seconds. Findings: No rash. Neurological: Mental Status: He is alert and oriented to person, place, and time. Deep Tendon Reflexes: Reflexes are normal and symmetric. Psychiatric: Mood and Affect: Mood normal. Behavior: Behavior normal. Thought Content: Thought content normal. Judgment: Judgment normal. ASSESSMENT/PLAN: Ha was seen today for ears no better. Diagnoses and all orders for this visit: Acute left otitis media - [id number] (CORTISPORIN) otic solution; Administer 3 drops into the left ear in the morning and 3 drops at noon and 3 drops in the evening and 3 drops before bedtime. Do all this for 7 days. Avoid wearing ear buds until pain and infection is fully resolved. Start Cortisporin otic as directed for 7 days. Patient is a current smoker, smoking cessation discussed today in office. He/She is not interested at this time ALL QUESTIONS ANSWERED Total time spent was 25 minutes: Preparing to see the patient (e.g., review of tests) Obtaining and/or reviewing separately obtained history Performing a medically appropriate examination and/or evaluation Counseling and educating the patient/family/caregiver Ordering medications, tests, or procedures Follow-up: Next scheduled Sooner if needed SULEIMAN Lozano 06/16/24 1510 documented in this encounter [facility] 05-26-2024 History of Present illness Narrative Images from the original note were not included. [address] [facility] [id number] SUBJECTIVE: Patient ID: Ha Krishnamurthy is a 48 y.o. male. Chief Complaint Patient presents with Earache Pain in left ear keeping him up at night. States he has been experiencing left ear pain for almost three weeks. Has been keeping him up at night. Alleviating methods tried include Tylenol without positive response. Denies fever. Earache There is pain in the left ear. The current episode started 1 to 4 weeks ago. The problem occurs constantly. The problem has been unchanged. There has been no fever. The pain is at a severity of 5/10. The pain is moderate. Associated symptoms include hearing loss and neck pain. Pertinent negatives include no abdominal pain, coughing, diarrhea, ear discharge, headaches, rash, rhinorrhea, sore throat or vomiting. He has tried acetaminophen for the symptoms. The treatment provided no relief. The following portions of the patient's history were reviewed and updated as appropriate: allergies, current medications, past family history, past medical history, past social history, past surgical history and problem list. Past Surgical History: Procedure Laterality Date COLONOSCOPY 08/2019 CYSTOSCOPY 08/08/2018 DAVINCI REPAIR HERNIA EPIGASTRIC N/A 07/23/2022 Performed by Tracie Iraheta MD at [facility] ESOPHAGOGASTRODUODENOSCOPY INCISION AND DRAINAGE SCROTUM Right 01/19/2020 Performed by Rich Rhodes DO at [facility] ORCHIECTOMY Right 01/05/2020 Performed by Rich Rhodes DO at [facility] REPAIR HERNIA INGUINAL MESH Right 11/25/2018 Performed by Rich Rhodes DO at [facility] UPPER GASTROINTESTINAL ENDOSCOPY 08/2019 Past Medical History: Diagnosis Date Agoraphobia Allergic contact dermatitis due to other agents 03/27/2017 Anxiety Asthma Bladder infection 12/2018 Cervical adenopathy 08/25/2018 Chronic pain of right knee 11/08/2016 Colitis PATIENT SAYS HE WAS Dx BY DR WRIGHT [place]chronic obstructive [place]) [place] [place] Dental disease no teeth; dentures at home Emphysema of lung [place] [place] Epididymitis GERD (gastroesophageal reflux disease) H. pylori infection Hematemesis/vomiting blood states has been occurring x 1.5 mths Inguinal lymphadenopathy 10/20/2018 Kidney stone 01/05/2019 Kidney stones 2019 Migraines Muscle strain of upper back 10/07/2018 Paranoid schizophrenia [place] [place] PTSD (post-traumatic stress disorder) Schizoaffective disorder [place] [place] Social anxiety disorder Strain of right trapezius muscle 09/30/2019 Urinary retention Urinary retention 08/25/2018 Visual impairment glasses Immunization History Administered Date(s) Administered COVID-19, mRNA, LNP-S, PF, 100mcg/0.5mL Dose 05/12/2020, 06/09/2020, 01/09/2021, 07/31/2021 Covid-19, Mrna, Lnp-s, Bivalent, Pf, 30mcg/0.3 ml 12/07/2021 Covid-19,mrna, Lnp-s, Pf, 50mcg/0.5ml 12+ 12/01/2022, 12/01/2023 Influenza Tri-valent Im, Adult 12/01/2023 Influenza, Injectable, quadrivalent (PF) 01/03/2017, 10/21/2017, 12/30/2018, 11/27/2021, 12/05/2022 Influenza, Recombinant, Quadrivalent, Injectable, Preserv 12/11/2019, 12/09/2020 Pneumococcal Conjugate 13-Valent 12/30/2018 REVIEW OF SYSTEMS: Review of Systems Constitutional: Negative for chills, fatigue and fever. HENT: Positive for ear pain and hearing loss. Negative for ear discharge, rhinorrhea, sore throat and trouble swallowing. Eyes: Negative for pain and visual disturbance. Respiratory: Negative for cough, chest tightness and shortness of breath. Cardiovascular: Negative for chest pain, palpitations and leg swelling. Gastrointestinal: Negative for abdominal pain, blood in stool, diarrhea and vomiting. Endocrine: Negative for polydipsia, polyphagia and polyuria. Genitourinary: Negative for difficulty urinating, dysuria, flank pain, hematuria, scrotal swelling and testicular pain. Musculoskeletal: Positive for neck pain. Skin: Negative. Negative for rash. Allergic/Immunologic: Negative. Neurological: Negative for seizures, syncope and headaches. Hematological: Does not bruise/bleed easily. Psychiatric/Behavioral: Negative. PHYSICAL EXAMINATION: Vitals: 05/26/24 1420 BP: 110/68 BP Site: Left Arm BP Postition: Sitting BP CUFF SIZE: M (9-13 inches) Pulse: 79 Resp: 18 Temp: 36.4 C (97.6 F) TempSrc: Tympanic SpO2: 97% Weight: 56 kg (123 lb 6.4 oz) Height: 170.2 cm (5' 7.01 ) Patient noted to have elevated BMI and the following intervention(s) were applied: encouragement to exercise. Physical Exam Vitals and nursing note reviewed. Constitutional: General: He is not in acute distress. Appearance: He is well-developed. HENT: Head: Normocephalic and atraumatic. Right Ear: Tympanic membrane and external ear normal. Left Ear: External ear normal. Tympanic membrane is injected and erythematous. Nose: Nose normal. Mouth/Throat: Mouth: Mucous membranes are moist. Pharynx: No oropharyngeal exudate. Eyes: General: No scleral icterus. Right eye: No discharge. Left eye: No discharge. Conjunctiva/sclera: Conjunctivae normal. Pupils: Pupils are equal, round, and reactive to light. Neck: Vascular: No JVD. Cardiovascular: Rate and Rhythm: Normal rate and regular rhythm. Heart sounds: Normal heart sounds. No murmur heard. No friction rub. No gallop. Pulmonary: Effort: Pulmonary effort is normal. No respiratory distress. Breath sounds: Normal breath sounds. Chest: Chest wall: No tenderness. Abdominal: General: Bowel sounds are normal. There is no distension. Palpations: Abdomen is soft. There is no mass. Tenderness: There is no abdominal tenderness. There is no guarding or rebound. Hernia: No hernia is present. Musculoskeletal: General: No tenderness. Normal range of motion. Cervical back: Normal range of motion and neck supple. Lymphadenopathy: Cervical: No cervical adenopathy. Skin: General: Skin is warm and dry. Capillary Refill: Capillary refill takes less than 2 seconds. Findings: No rash. Neurological: Mental Status: He is alert and oriented to person, place, and time. Deep Tendon Reflexes: Reflexes are normal and symmetric. Psychiatric: Mood and Affect: Mood normal. Behavior: Behavior normal. Thought Content: Thought content normal. Judgment: Judgment normal. ASSESSMENT/PLAN: Ha was seen today for earache. Diagnoses and all orders for this visit: Acute left otitis media - azithromycin (ZITHROMAX) 250 mg tablet; Take 2 tablets the first day, then 1 tablet daily for 4 days. - ibuprofen (MOTRIN) 800 mg tablet; Take 1 tablet (800 mg total) by mouth every 8 (eight) hours as needed for pain. Take with food Allergy to PCN Start Zpak as directed Motrin 800 mg oral every 8 hours PRN pain Patient is a current smoker, smoking cessation discussed today in office. 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 Free Tobacco Cessation Resources [facility] Services [facility] Tobacco [facility] Centers provide all employees with free tobacco cessation services that include: Counseling to understand nicotine addiction Education about medications that can help you successfully quit Assistance with developing a plan to quit Call to set up an individual appointment or find out when group classes will be held: [facility]: [phone] [facility]: [phone] [facility]: [phone] [facility]: [phone] Quit Smoking Action Plan and Resources [facility] offers an eight-week, online smoking cessation plan to all [facility] employees, regardless of whether [employer] is your medical insurance provider. Go to [email or web address] and click the Health Risk Assessment and Resources link to get started. In the [employer] menu, click Action Plans instead of Health Risk Assessment to access the Quit Smoking Action Plan. Additional smoking cessation resources are also available to all [facility] employees on the [employer] web page at [email or web address]. [employer] Tobacco Cessation Program If [employer] is your medical insurance provider, there are more free resources available to you, including: No copays or deductibles on local tobacco cessation counseling services to help you quit Prescription assistance for tobacco cessation medications to help you quit For details about the tobacco cessation program available to [employer] members, go to www.[email or web address] (Search: Tobacco Cessation Program). [place] Tobacco Quit Line 8-951-GQOL-NOW ( ) is a toll-free, telephonic service that helps [place] residents quit smoking and using tobacco. It is staffed by experts who tailor a quit plan for you and provide you with advice. [place] Tobacco Quit Line 3-277-SWLH-NOW ( ) is a toll-free, telephonic service that helps [place] residents quit smoking and using tobacco. It is staffed by experts who tailor a quit plan for you and provide you with advice. Two weeks of nicotine replacement therapy may be provided at no charge, if needed. Additional Resources These national organizations also offer free information and resources to help you quit tobacco: [place] [employer]--www.cancer.org/healthy/s tayawayfromtobacco [place] [employer]--www.heart.org (Search: Quit Smoking) Centers for Disease Control and Prevention--www.cdc.gov/tobacco [place] Lung Association--www.lungusa.org The following attachments cannot be sent through Care Everywhere.Ear Infections (Otitis Media) in Adults Discharge Instructions (Mauritanian)documented in this encounter [facility] 04-28-2024 History of Present illness Narrative Images from the original note were not included. [address] [place] [address] SUBJECTIVE: Patient ID: Ha Krishnamurthy is a 48 y.o. male. Chief Complaint Patient presents with controlled medications Presents for anxiety follow up Is monitored by psychiatry every 3 months. He is also in counseling monthly Feels his panic during the day is controlled with lorazepam. States he cannot leave his house if he doesn't take lorazepam. Offers no concerns today. The following portions of the patient's history were reviewed and updated as appropriate: allergies, current medications, past family history, past medical history, past social history, past surgical history and problem list. Past Surgical History: Procedure Laterality Date COLONOSCOPY 08/2019 CYSTOSCOPY 08/08/2018 DAVINCI REPAIR HERNIA EPIGASTRIC N/A 07/23/2022 Performed by Tracie Iraheta MD at [facility] ESOPHAGOGASTRODUODENOSCOPY INCISION AND DRAINAGE SCROTUM Right 01/19/2020 Performed by Rich Rhodes DO at [facility] ORCHIECTOMY Right 01/05/2020 Performed by Rich Rhodes DO at [facility] REPAIR HERNIA INGUINAL MESH Right 11/25/2018 Performed by Rich Rhodes DO at [facility] UPPER GASTROINTESTINAL ENDOSCOPY 08/2019 Past Medical History: Diagnosis Date Agoraphobia Allergic contact dermatitis due to other agents 03/27/2017 Anxiety Asthma Bladder infection 12/2018 Cervical adenopathy 08/25/2018 Chronic pain of right knee 11/08/2016 Colitis PATIENT SAYS HE WAS Dx BY DR WRIGHT [place] Dental disease no teeth; dentures at home Emphysema of lung [place] Epididymitis GERD (gastroesophageal reflux disease) H. pylori infection Hematemesis/vomiting blood states has been occurring x 1.5 mths Inguinal lymphadenopathy 10/20/2018 Kidney stone 01/05/2019 Kidney stones 2019 Migraines Muscle strain of upper back 10/07/2018 Paranoid schizophrenia [place] PTSD (post-traumatic stress disorder) Schizoaffective disorder [place] Social anxiety disorder Strain of right trapezius muscle 09/30/2019 Urinary retention Urinary retention 08/25/2018 Visual impairment glasses Immunization History Administered Date(s) Administered COVID-19, mRNA, LNP-S, PF, 100mcg/0.5mL Dose 05/12/2020, 06/09/2020, 01/09/2021, 07/31/2021 Covid-19, Mrna, Lnp-s, Bivalent, Pf, 30mcg/0.3 ml 12/07/2021 Covid-19,mrna, Lnp-s, Pf, 50mcg/0.5ml 12+ 12/01/2022, 12/01/2023 Influenza Tri-valent Im, Adult 12/01/2023 Influenza, Injectable, quadrivalent (PF) 01/03/2017, 10/21/2017, 12/30/2018, 11/27/2021, 12/05/2022 Influenza, Recombinant, Quadrivalent, Injectable, Preserv 12/11/2019, 12/09/2020 Pneumococcal Conjugate 13-Valent 12/30/2018 REVIEW OF SYSTEMS: Review of Systems Constitutional: Negative for chills, fatigue and fever. HENT: Negative for hearing loss and trouble swallowing. Eyes: Negative for pain and visual disturbance. Respiratory: Negative for cough, chest tightness and shortness of breath. Cardiovascular: Negative for chest pain, palpitations and leg swelling. Gastrointestinal: Negative for blood in stool. Endocrine: Negative for polydipsia, polyphagia and polyuria. Genitourinary: Negative for difficulty urinating, dysuria, flank pain, hematuria, scrotal swelling and testicular pain. Musculoskeletal: Negative. Skin: Negative. Allergic/Immunologic: Negative. Neurological: Negative for seizures, syncope and headaches. Hematological: Does not bruise/bleed easily. Psychiatric/Behavioral: Negative. PHYSICAL EXAMINATION: Vitals: 04/28/24 1521 BP: 126/74 BP Site: Left Arm BP Postition: Sitting BP CUFF SIZE: M (9-13 inches) Pulse: 74 Resp: 18 Temp: 36.7 C (98 F) TempSrc: Oral SpO2: 95% Weight: 56.1 kg (123 lb 9.6 oz) Height: 170.2 cm (5' 7.01 ) Physical Exam Vitals and nursing note reviewed. Constitutional: General: He is not in acute distress. Appearance: He is well-developed. HENT: Head: Normocephalic and atraumatic. Right Ear: Tympanic membrane and external ear normal. Left Ear: Tympanic membrane and external ear normal. Nose: Nose normal. Mouth/Throat: Mouth: Mucous membranes are moist. Pharynx: No oropharyngeal exudate. Eyes: General: No scleral icterus. Right eye: No discharge. Left eye: No discharge. Conjunctiva/sclera: Conjunctivae normal. Pupils: Pupils are equal, round, and reactive to light. Neck: Vascular: No JVD. Cardiovascular: Rate and Rhythm: Normal rate and regular rhythm. Heart sounds: Normal heart sounds. No murmur heard. No friction rub. No gallop. Pulmonary: Effort: Pulmonary effort is normal. No respiratory distress. Breath sounds: Normal breath sounds. Chest: Chest wall: No tenderness. Abdominal: General: Bowel sounds are normal. There is no distension. Palpations: Abdomen is soft. There is no mass. Tenderness: There is no abdominal tenderness. There is no guarding or rebound. Hernia: No hernia is present. Musculoskeletal: General: No tenderness. Normal range of motion. Cervical back: Normal range of motion and neck supple. Lymphadenopathy: Cervical: No cervical adenopathy. Skin: General: Skin is warm and dry. Capillary Refill: Capillary refill takes less than 2 seconds. Findings: No rash. Neurological: Mental Status: He is alert and oriented to person, place, and time. Deep Tendon Reflexes: Reflexes are normal and symmetric. Psychiatric: Mood and Affect: Mood normal. Behavior: Behavior normal. Thought Content: Thought content normal. Judgment: Judgment normal. ASSESSMENT/PLAN: Ha was seen today for controlled medications. Diagnoses and all orders for this visit: Anxiety about health Agoraphobia with panic attacks Generalized anxiety disorder with panic attacks Paranoid schizophrenia (CMS-HCC) Posttraumatic stress disorder Dilatation of aorta (CMS-HCC) Continue lorazepam 0.5 mg oral every 12 hours PRN anxiety Is monitored by psychiatry every 3 months. He is also in counseling monthly Feels his panic during the day is controlled with lorazepam. Dilation of aorta Slight dilatation of the ascending thoracic aorta up to 3.[address] of lung visualized. Repeat scan done August 2023, was documented unremarkable. Next CT of chest will be due August [address] Baumann, mental health coordinator. The OARRS/iFulfillmentS database was reviewed today and found to be appropriate. No indication of medication diversion, or non compliance. Patient is a current smoker, smoking cessation discussed today in office. He/She is not interested at this time States he has been slowly cutting back on smoking. Is currently smoking 5 cigarettes per day. ALL QUESTIONS ANSWERED Total time spent was 25 minutes: Preparing to see the patient (e.g., review of tests) Obtaining and/or reviewing separately obtained history Performing a medically appropriate examination and/or evaluation Counseling and educating the patient/family/caregiver Ordering medications, tests, or procedures Follow-up: 3 months SULEIMAN Lozano 04/28/24 1544 documented in this encounter [facility] 04-09-2024 Miscellaneous Notes The OARRS/MAPPS database was reviewed today and found to be appropriate. No indication of medication diversion, or non compliance. [facility] Telephone encounter Note The OARRS/iFulfillmentS database was reviewed today and found to be appropriate. No indication of medication diversion, or non compliance. [facility] History of Present illness Narrative Images from the original note were not included. [address] [place] [address] SUBJECTIVE: Patient ID: Ha Krishnamurthy is a 48 y.o. male. Chief Complaint Patient presents with Cough Nasal Congestion 04/06 Onset of symptoms started two days ago. Symptoms include cough, nasal congestion, and runny nose. Denies fever, ear pain, sore throat. Has history of COPD. He denies wheezing or shortness of breath. URI This is a new problem. The current episode started in the past 7 days. The problem has been waxing and waning. There has been no fever. Associated symptoms include congestion, coughing and rhinorrhea. Pertinent negatives include no abdominal pain, chest pain, diarrhea, dysuria, ear pain, headaches, joint pain, joint swelling, nausea, neck pain, plugged ear sensation, rash, sinus pain, sneezing, sore throat, swollen glands, vomiting or wheezing. He has tried sleep for the symptoms. The treatment provided no relief. The following portions of the patient's history were reviewed and updated as appropriate: allergies, current medications, past family history, past medical history, past social history, past surgical history and problem list. Past Surgical History: Procedure Laterality Date COLONOSCOPY 08/2019 CYSTOSCOPY 08/08/2018 DAVINCI REPAIR HERNIA EPIGASTRIC N/A 07/23/2022 Performed by Tracie Iraheta MD at [facility] ESOPHAGOGASTRODUODENOSCOPY INCISION AND DRAINAGE SCROTUM Right 01/19/2020 Performed by Rich Rhodes DO at [facility] ORCHIECTOMY Right 01/05/2020 Performed by Rich Rhodes DO at [facility] REPAIR HERNIA INGUINAL MESH Right 11/25/2018 Performed by Rich Rhodes DO at [facility] UPPER GASTROINTESTINAL ENDOSCOPY 08/2019 Past Medical History: Diagnosis Date Agoraphobia Allergic contact dermatitis due to other agents 03/27/2017 Anxiety Asthma Bladder infection 12/2018 Cervical adenopathy 08/25/2018 Chronic pain of right knee 11/08/2016 Colitis PATIENT SAYS HE WAS Dx BY DR WRIGHT COPD [place]chronic obstructive pulmonary disease) [place] Dental disease no teeth; dentures at home Emphysema of lung [place] Epididymitis GERD (gastroesophageal reflux disease) H. pylori infection Hematemesis/vomiting blood states has been occurring x 1.5 mths Inguinal lymphadenopathy 10/20/2018 Kidney stone 01/05/2019 Kidney stones 2019 Migraines Muscle strain of upper back 10/07/2018 Paranoid schizophrenia [place] PTSD (post-traumatic stress disorder) Schizoaffective disorder ([facility] Social anxiety disorder Strain of right trapezius muscle 09/30/2019 Urinary retention Urinary retention 08/25/2018 Visual impairment glasses Immunization History Administered Date(s) Administered COVID-19, mRNA, LNP-S, PF, 100mcg/0.5mL Dose 05/12/2020, 06/09/2020, 01/09/2021, 07/31/2021 Covid-19, Mrna, Lnp-s, Bivalent, Pf, 30mcg/0.3 ml 12/07/2021 Covid-19,mrna, Lnp-s, Pf, 50mcg/0.5ml 12+ 12/01/2022, 12/01/2023 Influenza Tri-valent Im, Adult 12/01/2023 Influenza, Injectable, quadrivalent (PF) 01/03/2017, 10/21/2017, 12/30/2018, 11/27/2021, 12/05/2022 Influenza, Recombinant, Quadrivalent, Injectable, Preserv 12/11/2019, 12/09/2020 Pneumococcal Conjugate 13-Valent 12/30/2018 REVIEW OF SYSTEMS: Review of Systems Constitutional: Negative for fatigue. HENT: Positive for congestion, postnasal drip and rhinorrhea. Negative for ear pain, sinus pain, sneezing and sore throat. Eyes: Negative for pain and visual disturbance. Respiratory: Positive for cough. Negative for wheezing. Cardiovascular: Negative for chest pain, palpitations and leg swelling. Gastrointestinal: Negative for abdominal pain, blood in stool, diarrhea, nausea and vomiting. Endocrine: Negative for polydipsia, polyphagia and polyuria. Genitourinary: Negative for difficulty urinating, dysuria, flank pain, hematuria, scrotal swelling and testicular pain. Musculoskeletal: Negative. Negative for joint pain and neck pain. Skin: Negative. Negative for rash. Allergic/Immunologic: Negative. Neurological: Negative for seizures, syncope and headaches. Hematological: Does not bruise/bleed easily. Psychiatric/Behavioral: Negative. PHYSICAL EXAMINATION: Vitals: 04/08/24 1139 BP: 130/82 BP Site: Left Arm BP Postition: Sitting Pulse: 81 Resp: 20 Temp: 36.6 C (97.9 F) TempSrc: Oral SpO2: 96% Weight: 54.7 kg (120 lb 9.6 oz) Height: 170.2 cm (5' 7 ) Physical Exam Vitals and nursing note reviewed. Constitutional: General: He is not in acute distress. Appearance: He is well-developed. HENT: Head: Normocephalic and atraumatic. Right Ear: Tympanic membrane and external ear normal. Left Ear: Tympanic membrane and external ear normal. Nose: Nose normal. Mouth/Throat: Mouth: Mucous membranes are moist. Pharynx: No oropharyngeal exudate. Eyes: General: No scleral icterus. Right eye: No discharge. Left eye: No discharge. Conjunctiva/sclera: Conjunctivae normal. Pupils: Pupils are equal, round, and reactive to light. Neck: Vascular: No JVD. Cardiovascular: Rate and Rhythm: Normal rate and regular rhythm. Heart sounds: Normal heart sounds. No murmur heard. No friction rub. No gallop. Pulmonary: Effort: Pulmonary effort is normal. No respiratory distress. Breath sounds: Normal breath sounds. Chest: Chest wall: No tenderness. Abdominal: General: Bowel sounds are normal. There is no distension. Palpations: Abdomen is soft. There is no mass. Tenderness: There is no abdominal tenderness. There is no guarding or rebound. Hernia: No hernia is present. Musculoskeletal: General: No tenderness. Normal range of motion. Cervical back: Normal range of motion and neck supple. Lymphadenopathy: Cervical: No cervical adenopathy. Skin: General: Skin is warm and dry. Capillary Refill: Capillary refill takes less than 2 seconds. Findings: No rash. Neurological: Mental Status: He is alert and oriented to person, place, and time. Deep Tendon Reflexes: Reflexes are normal and symmetric. Psychiatric: Mood and Affect: Mood normal. Behavior: Behavior normal. Thought Content: Thought content normal. Judgment: Judgment normal. ASSESSMENT/PLAN: Ha was seen today for cough and nasal congestion. Diagnoses and all orders for this visit: Influenza A - oseltamivir (TAMIFLU) 75 mg capsule; Take 1 capsule (75 mg total) by mouth in the morning and 1 capsule (75 mg total) before bedtime. Do all this for 5 days. Acute cough - benzonatate (TESSALON PERLES) 100 mg capsule; Take 1 capsule (100 mg total) by mouth 3 (three) times a day as needed for cough. - POCT Influenza A/Influenza B/SARS-COV-2 Veritor POCT COVID / Influenza. Tested positive for influenza A. Cool mist humidification for congestion, warm salt water gargles as needed for sore throat. Motrin or Tylenol as needed per training generalist guidelines for fever or pain. Increase fluids. Start Tamiflu 75 mg oral twice daily for 5 days Tessalon Perles 100 mg oral TID PRN cough. Received influenza vaccine this season ALL QUESTIONS ANSWERED Total time spent was 25 minutes: Preparing to see the patient (e.g., review of tests) Obtaining and/or reviewing separately obtained history Performing a medically appropriate examination and/or evaluation Counseling and educating the patient/family/caregiver Ordering medications, tests, or procedures Follow-up: Next scheduled Sooner if needed SULEIMAN Lozano 04/08/24 1226 documented in this encounter [facility] 01-20-2024 History of Present illness Narrative Images from the original note were not included. [address] [place] [address] SUBJECTIVE: Patient ID: Ha Krishnamurthy is a 48 y.o. male. Chief Complaint Patient presents with controlled substance contract Presents for anxiety follow up Is monitored by psychiatry every 3 months. He is also in counseling monthly Feels his panic during the day is controlled with lorazepam. The following portions of the patient's history were reviewed and updated as appropriate: allergies, current medications, past family history, past medical history, past social history, past surgical history and problem list. Past Surgical History: Procedure Laterality Date COLONOSCOPY 08/2019 CYSTOSCOPY 08/08/2018 DAVINCI REPAIR HERNIA EPIGASTRIC N/A 07/23/2022 Performed by Tracie Iraheta MD at [facility] ESOPHAGOGASTRODUODENOSCOPY INCISION AND DRAINAGE SCROTUM Right 01/19/2020 Performed by Rich Rhodes DO at [facility] ORCHIECTOMY Right 01/05/2020 Performed by Rich Rhodes DO at [facility] REPAIR HERNIA INGUINAL MESH Right 11/25/2018 Performed by Rich Rhodes DO at [facility] UPPER GASTROINTESTINAL ENDOSCOPY 08/2019 Past Medical History: Diagnosis Date Agoraphobia Allergic contact dermatitis due to other agents 03/27/2017 Anxiety Asthma Bladder infection 12/2018 Cervical adenopathy 08/25/2018 Chronic pain of right knee 11/08/2016 Colitis PATIENT SAYS HE WAS Dx BY DR WRIGHT COPD (chronic obstructive pulmonary disease) [place] Dental disease no teeth; dentures at home Emphysema of lung [place] Epididymitis GERD (gastroesophageal reflux disease) H. pylori infection Hematemesis/vomiting blood states has been occurring x 1.5 mths Inguinal lymphadenopathy 10/20/2018 Kidney stone 01/05/2019 Kidney stones 2019 Migraines Muscle strain of upper back 10/07/2018 Paranoid schizophrenia [place] PTSD (post-traumatic stress disorder) Schizoaffective disorder ([facility] Social anxiety disorder Strain of right trapezius muscle 09/30/2019 Urinary retention Urinary retention 08/25/2018 Visual impairment glasses Immunization History Administered Date(s) Administered COVID-19, mRNA, LNP-S, PF, 100mcg/0.5mL Dose 05/12/2020, 06/09/2020, 01/09/2021, 07/31/2021 Covid-19, Mrna, Lnp-s, Bivalent, Pf, 30mcg/0.3 ml 12/07/2021 Covid-19,mrna, Lnp-s, Pf, 50mcg/0.5ml 12+ 12/01/2022, 12/01/2023 Influenza Tri-valent Im, Adult 12/01/2023 Influenza, Injectable, quadrivalent (PF) 01/03/2017, 10/21/2017, 12/30/2018, 11/27/2021, 12/05/2022 Influenza, Recombinant, Quadrivalent, Injectable, Preserv 12/11/2019, 12/09/2020 Pneumococcal Conjugate 13-Valent 12/30/2018 REVIEW OF SYSTEMS: Review of Systems Constitutional: Negative for chills, fatigue and fever. HENT: Negative for hearing loss and trouble swallowing. Eyes: Negative for pain and visual disturbance. Respiratory: Negative for cough, chest tightness and shortness of breath. Cardiovascular: Negative for chest pain, palpitations and leg swelling. Gastrointestinal: Negative for blood in stool. Endocrine: Negative for polydipsia, polyphagia and polyuria. Genitourinary: Negative for difficulty urinating, dysuria, flank pain, hematuria, scrotal swelling and testicular pain. Musculoskeletal: Negative. Skin: Negative. Allergic/Immunologic: Negative. Neurological: Negative for seizures, syncope and headaches. Hematological: Does not bruise/bleed easily. Psychiatric/Behavioral: Negative. PHYSICAL EXAMINATION: Vitals: 01/20/24 1141 BP: 110/60 BP Site: Left Arm BP Postition: Sitting Pulse: 67 Resp: 18 Temp: 36.4 C (97.6 F) TempSrc: Oral SpO2: 99% Weight: 55.2 kg (121 lb 12.8 oz) Height: 170.2 cm (5' 7 ) Physical Exam Vitals and nursing note reviewed. Constitutional: General: He is not in acute distress. Appearance: He is well-developed. HENT: Head: Normocephalic and atraumatic. Right Ear: Tympanic membrane and external ear normal. Left Ear: Tympanic membrane and external ear normal. Nose: Nose normal. Mouth/Throat: Mouth: Mucous membranes are moist. Pharynx: No oropharyngeal exudate. Eyes: General: No scleral icterus. Right eye: No discharge. Left eye: No discharge. Conjunctiva/sclera: Conjunctivae normal. Pupils: Pupils are equal, round, and reactive to light. Neck: Vascular: No JVD. Cardiovascular: Rate and Rhythm: Normal rate and regular rhythm. Heart sounds: Normal heart sounds. No murmur heard. No friction rub. No gallop. Pulmonary: Effort: Pulmonary effort is normal. No respiratory distress. Breath sounds: Normal breath sounds. Chest: Chest wall: No tenderness. Abdominal: General: Bowel sounds are normal. There is no distension. Palpations: Abdomen is soft. There is no mass. Tenderness: There is no abdominal tenderness. There is no guarding or rebound. Hernia: No hernia is present. Musculoskeletal: General: No tenderness. Normal range of motion. Cervical back: Normal range of motion and neck supple. Lymphadenopathy: Cervical: No cervical adenopathy. Skin: General: Skin is warm and dry. Capillary Refill: Capillary refill takes less than 2 seconds. Findings: No rash. Neurological: Mental Status: He is alert and oriented to person, place, and time. Deep Tendon Reflexes: Reflexes are normal and symmetric. Psychiatric: Mood and Affect: Mood normal. Behavior: Behavior normal. Thought Content: Thought content normal. Judgment: Judgment normal. ASSESSMENT/PLAN: Ha was seen today for controlled substance contract. Diagnoses and all orders for this visit: Agoraphobia with panic attacks Narcotic use agreement exists - Benzodiazepine cnf urine; Future Anxiety about health Generalized anxiety disorder with panic attacks Is monitored by psychiatry every 3 months. He is also in counseling monthly Feels his panic during the day is controlled with lorazepam. Narcotic contract updated today Benzodiazepine urine drug screen collected. ALL QUESTIONS ANSWERED Total time spent was 25 minutes: Preparing to see the patient (e.g., review of tests) Obtaining and/or reviewing separately obtained history Performing a medically appropriate examination and/or evaluation Counseling and educating the patient/family/caregiver Ordering medications, tests, or procedures Follow-up: Narcotic agreement SULEIMAN Lozano 01/20/24 1229 documented in this encounter [facility] 12-05-2023 History of Present illness Narrative Images from the original note were not included. [address] [facility] [id number] SUBJECTIVE: Patient ID: Ha Krishnamurthy is a 48 y.o. male. Chief Complaint Patient presents with Rash Painful and scanlon 2 days States rash started approximately 2 days ago. Describes as itchy, burning, and painful. Denies no new deodorants, body soaps, or laundry detergent. Denies fever, cough, or myalgias. Rash This is a new problem. The current episode started in the past 7 days. The problem has been gradually worsening since onset. Location: left lower axilla. The rash is characterized by blistering, redness, pain and burning. Pertinent negatives include no cough, eye pain, fatigue, fever or shortness of breath. The following portions of the patient's history were reviewed and updated as appropriate: allergies, current medications, past family history, past medical history, past social history, past surgical history and problem list. Past Surgical History: Procedure Laterality Date COLONOSCOPY 08/2019 CYSTOSCOPY 08/08/2018 DAVINCI REPAIR HERNIA EPIGASTRIC N/A 07/23/2022 Performed by Tracie Iraheta MD at [facility] ESOPHAGOGASTRODUODENOSCOPY INCISION AND DRAINAGE SCROTUM Right 01/19/2020 Performed by Rich Rhodes DO at [facility] ORCHIECTOMY Right 01/05/2020 Performed by Rich Rhodes DO at [facility] REPAIR HERNIA INGUINAL MESH Right 11/25/2018 Performed by Rich Rhodes DO at [facility] UPPER GASTROINTESTINAL ENDOSCOPY 08/2019 Past Medical History: Diagnosis Date Agoraphobia Allergic contact dermatitis due to other agents 03/27/2017 Anxiety Asthma Bladder infection 12/2018 Cervical adenopathy 08/25/2018 Chronic pain of right knee 11/08/2016 Colitis PATIENT SAYS HE WAS Dx BY DR WRIGHT [place]chronic obstructive pulmonary disease) [place] Dental disease no teeth; dentures at home Emphysema of lung [place] Epididymitis GERD (gastroesophageal reflux disease) H. pylori infection Hematemesis/vomiting blood states has been occurring x 1.5 mths Inguinal lymphadenopathy 10/20/2018 Kidney stone 01/05/2019 Kidney stones 2019 Migraines Muscle strain of upper back 10/07/2018 Paranoid schizophrenia [place] PTSD (post-traumatic stress disorder) Schizoaffective disorder [place] Social anxiety disorder Strain of right trapezius muscle 09/30/2019 Urinary retention Urinary retention 08/25/2018 Visual impairment glasses Immunization History Administered Date(s) Administered COVID-19, mRNA, LNP-S, PF, 100mcg/0.5mL Dose 05/12/2020, 06/09/2020, 01/09/2021, 07/31/2021 Covid-19, Mrna, Lnp-s, Bivalent, Pf, 30mcg/0.3 ml 12/07/2021 Covid-19,mrna, Lnp-s, Pf, 50mcg/0.5ml 12+ 12/01/2022 Influenza, Injectable, quadrivalent (PF) 01/03/2017, 10/21/2017, 12/30/2018, 11/27/2021, 12/05/2022 Influenza, Recombinant, Quadrivalent, Injectable, Preserv 12/11/2019, 12/09/2020 Pneumococcal Conjugate 13-Valent 12/30/2018 REVIEW OF SYSTEMS: Review of Systems Constitutional: Negative for chills, fatigue and fever. HENT: Negative for hearing loss and trouble swallowing. Eyes: Negative for pain and visual disturbance. Respiratory: Negative for cough, chest tightness and shortness of breath. Cardiovascular: Negative for chest pain, palpitations and leg swelling. Gastrointestinal: Negative for blood in stool. Endocrine: Negative for polydipsia, polyphagia and polyuria. Genitourinary: Negative for difficulty urinating, dysuria, flank pain, hematuria, scrotal swelling and testicular pain. Skin: Positive for rash. Neurological: Negative for seizures, syncope and headaches. Hematological: Does not bruise/bleed easily. Psychiatric/Behavioral: Negative. PHYSICAL EXAMINATION: Vitals: 12/05/23 1257 BP: 120/80 BP Site: Left Arm BP Postition: Sitting Pulse: 92 Resp: 18 Temp: 36.9 C (98.4 F) TempSrc: Oral SpO2: 97% Weight: 55.5 kg (122 lb 6.4 oz) Height: 170.2 cm (5' 7 ) Physical Exam Vitals and nursing note reviewed. Constitutional: General: He is not in acute distress. Appearance: He is well-developed. HENT: Head: Normocephalic and atraumatic. Right Ear: Tympanic membrane and external ear normal. Left Ear: Tympanic membrane and external ear normal. Nose: Nose normal. Mouth/Throat: Mouth: Mucous membranes are moist. Pharynx: No oropharyngeal exudate. Eyes: General: No scleral icterus. Right eye: No discharge. Left eye: No discharge. Conjunctiva/sclera: Conjunctivae normal. Pupils: Pupils are equal, round, and reactive to light. Neck: Vascular: No JVD. Cardiovascular: Rate and Rhythm: Normal rate and regular rhythm. Heart sounds: Normal heart sounds. No murmur heard. No friction rub. No gallop. Pulmonary: Effort: Pulmonary effort is normal. No respiratory distress. Breath sounds: Normal breath sounds. Chest: Chest wall: No tenderness. Abdominal: General: Bowel sounds are normal. There is no distension. Palpations: Abdomen is soft. There is no mass. Tenderness: There is no abdominal tenderness. There is no guarding or rebound. Hernia: No hernia is present. Musculoskeletal: General: No tenderness. Normal range of motion. Cervical back: Normal range of motion and neck supple. Lymphadenopathy: Cervical: No cervical adenopathy. Skin: General: Skin is warm and dry. Capillary Refill: Capillary refill takes less than 2 seconds. Findings: Erythema and rash present. Rash is vesicular. Comments: Left lower axilla; small erythemic area with tiny vesicles. Neurological: Mental Status: He is alert and oriented to person, place, and time. Deep Tendon Reflexes: Reflexes are normal and symmetric. Psychiatric: Mood and Affect: Mood normal. Behavior: Behavior normal. Thought Content: Thought content normal. Judgment: Judgment normal. ASSESSMENT/PLAN: Ha was seen today for rash. Diagnoses and all orders for this visit: Herpes zoster without complication - acyclovir (ZOVIRAX) 800 mg tablet; Take 1 tablet (800 mg total) by mouth in the morning and 1 tablet (800 mg total) at noon and 1 tablet (800 mg total) in the evening and 1 tablet (800 mg total) before bedtime. Do all this for 5 days. - gabapentin (NEURONTIN) 300 mg capsule; Take 1 capsule (300 mg total) by mouth 3 (three) times a day for 7 days. HOLD 100MG DOSING WHILE TAKING THIS FOR 7 DAYS Start acyclovir as directed Gabapentin 300 mg oral TID for 7 days. Is currently taking 100 mg twice daily for trigeminal neuralgia- HOLD while taking 300 mg dosing for 7 days. Avoid scratching area. Wash hands often. Patient is a current smoker, smoking cessation discussed today in office. He/She is not interested at this time ALL QUESTIONS ANSWERED Total time spent was 25 minutes: Preparing to see the patient (e.g., review of tests) Obtaining and/or reviewing separately obtained history Performing a medically appropriate examination and/or evaluation Counseling and educating the patient/family/caregiver Ordering medications, tests, or procedures Follow-up: Next scheduled Sooner if needed SULEIMAN Lozano 12/05/23 [id number] documented in this encounter [facility] 12-05-2023 Instructions SULEIMAN Lozano - 12/05/2023 1:00 PM EDT Are You Ready To Kick The Habit? Free Tobacco Cessation Resources [facility] Services [facility] provide all employees with free tobacco cessation services that include: Counseling to understand nicotine addiction Education about medications that can help you successfully quit Assistance with developing a plan to quit Call to set up an individual appointment or find out when group classes will be held: [facility]: [phone] [facility]: [phone] [facility]: [phone] [facility]: [phone] Quit Smoking Action Plan and Resources [facility] offers an eight-week, online smoking cessation plan to all [facility] employees, regardless of whether [employer] is your medical insurance provider. Go to [email or web address] and click the Health Risk Assessment and Resources link to get started. In the [employer] menu, click Action Plans instead of Health Risk Assessment to access the Quit Smoking Action Plan. Additional smoking cessation resources are also available to all [facility] employees on the Quuli1Qntydu web page at [email or web address]. [employer] Tobacco Cessation Program If [employer] is your medical insurance provider, there are more free resources available to you, including: No copays or deductibles on local tobacco cessation counseling services to help you quit Prescription assistance for tobacco cessation medications to help you quit For details about the tobacco cessation program available to [employer] members, go to www.[employer] (Search: Tobacco Cessation Program). [place] Tobacco Quit Line 3-131-SSOW-NOW ( ) is a toll-free, telephonic service that helps [place] residents quit smoking and using tobacco. It is staffed by experts who tailor a quit plan for you and provide you with advice. [place] Tobacco Quit Line 6-231-XKVJ-NOW ( ) is a toll-free, telephonic service that helps [place] residents quit smoking and using tobacco. It is staffed by experts who tailor a quit plan for you and provide you with advice. Two weeks of nicotine replacement therapy may be provided at no charge, if needed. Additional Resources These national organizations also offer free information and resources to help you quit tobacco: [place] [employer]--www.cancer.org/healthy/s tayawayfromtobacco [place] [employer]--www.heart.org (Search: Quit Smoking) Centers for Disease Control and Prevention--www.cdc.gov/tobacco [place] Lung [employer]--www.lungusa.org The following attachments cannot be sent through Care Everywhere.Shingljosafat (Mauritanian)documented in this encounter [facility] 11-21-2023 History of Present illness Narrative Images from the original note were not included. [address] [facility] [id number] SUBJECTIVE: Patient ID: Ha Krishnamurthy is a 48 y.o. male. Chief Complaint Patient presents with Cough White phlegm-1 month Ha presents today with exacerbation of COPD. States he has been coughing up white sputum. Has been experiencing harsh coughing episodes. Has been using his albuterol nebulizer with partial benefit. He request no oral steroids as this increases his mental health symptoms. COPD Primary symptoms: cough, dyspnea on exertion and frequent throat clearing Primary symptoms: no shortness of breath Chronicity: Recurrent Onset: In the past 30 days Frequency: Often Progression since onset: Waxing and waning Severity: Moderate Cough characteristics: harsh, nocturnal and productive Associated symptoms: nasal congestion and postnasal drip Associated symptoms: no fever and no trouble swallowing Aggravated by: Pollen and change in weather Alleviated by: Change in position, cold air and steroid inhaler, nebulizer Current Treatment: Inhaled corticosteriods Improvement on treatment: Moderate PMH includes: COPD and smoker The following portions of the patient's history were reviewed and updated as appropriate: allergies, current medications, past family history, past medical history, past social history, past surgical history and problem list. Past Surgical History: Procedure Laterality Date COLONOSCOPY 08/2019 CYSTOSCOPY 08/08/2018 DAVINCI REPAIR HERNIA EPIGASTRIC N/A 07/23/2022 Performed by Tracie Iraheta MD at [facility] ESOPHAGOGASTRODUODENOSCOPY INCISION AND DRAINAGE SCROTUM Right 01/19/2020 Performed by Rich Rhodes DO at [facility] ORCHIECTOMY Right 01/05/2020 Performed by Rich Rhodes DO at [facility] REPAIR HERNIA INGUINAL MESH Right 11/25/2018 Performed by Rich Rhodes DO at [facility] UPPER GASTROINTESTINAL ENDOSCOPY 08/2019 Past Medical History: Diagnosis Date Agoraphobia Allergic contact dermatitis due to other agents 03/27/2017 Anxiety Asthma Bladder infection 12/2018 Cervical adenopathy 08/25/2018 Chronic pain of right knee 11/08/2016 Colitis PATIENT SAYS HE WAS Dx BY DR WRIGHT COPD [place]chronic obstructive pulmonary disease) [place] Dental disease no teeth; dentures at home Emphysema of lung [place] Epididymitis GERD (gastroesophageal reflux disease) H. pylori infection Hematemesis/vomiting blood states has been occurring x 1.5 mths Inguinal lymphadenopathy 10/20/2018 Kidney stone 01/05/2019 Kidney stones 2019 Migraines Muscle strain of upper back 10/07/2018 Paranoid schizophrenia [place] PTSD (post-traumatic stress disorder) Schizoaffective disorder [place] Social anxiety disorder Strain of right trapezius muscle 09/30/2019 Urinary retention Urinary retention 08/25/2018 Visual impairment glasses Immunization History Administered Date(s) Administered COVID-19, mRNA, LNP-S, PF, 100mcg/0.5mL Dose 05/12/2020, 06/09/2020, 01/09/2021, 07/31/2021 Covid-19, Mrna, Lnp-s, Bivalent, Pf, 30mcg/0.3 ml 12/07/2021 Covid-19,mrna, Lnp-s, Pf, 50mcg/0.5ml 12+ 12/01/2022 Influenza, Injectable, quadrivalent (PF) 01/03/2017, 10/21/2017, 12/30/2018, 11/27/2021, 12/05/2022 Influenza, Recombinant, Quadrivalent, Injectable, Preserv 12/11/2019, 12/09/2020 Pneumococcal Conjugate 13-Valent 12/30/2018 REVIEW OF SYSTEMS: Review of Systems Constitutional: Negative for fatigue. HENT: Positive for congestion, postnasal drip and rhinorrhea. Eyes: Negative for pain and visual disturbance. Respiratory: Positive for cough and chest tightness. Cardiovascular: Negative for palpitations and leg swelling. Gastrointestinal: Negative for blood in stool. Endocrine: Negative for polydipsia, polyphagia and polyuria. Genitourinary: Negative for difficulty urinating, dysuria, flank pain, hematuria, scrotal swelling and testicular pain. Musculoskeletal: Negative. Skin: Negative. Allergic/Immunologic: Negative. Neurological: Negative for seizures and syncope. Hematological: Does not bruise/bleed easily. Psychiatric/Behavioral: Negative. PHYSICAL EXAMINATION: Vitals: 11/21/23 1445 BP: 124/70 BP Site: Left Arm BP Postition: Sitting Pulse: 65 Resp: 18 Temp: 36.6 C (97.8 F) TempSrc: Oral SpO2: 100% Weight: 56.6 kg (124 lb 11.2 oz) Height: 170.2 cm (5' 7 ) Physical Exam Vitals and nursing note reviewed. Constitutional: General: He is not in acute distress. Appearance: He is well-developed. HENT: Head: Normocephalic and atraumatic. Right Ear: Tympanic membrane and external ear normal. Left Ear: Tympanic membrane and external ear normal. Nose: Nose normal. Mouth/Throat: Mouth: Mucous membranes are moist. Pharynx: No oropharyngeal exudate. Eyes: General: No scleral icterus. Right eye: No discharge. Left eye: No discharge. Conjunctiva/sclera: Conjunctivae normal. Pupils: Pupils are equal, round, and reactive to light. Neck: Vascular: No JVD. Cardiovascular: Rate and Rhythm: Normal rate and regular rhythm. Heart sounds: Normal heart sounds. No murmur heard. No friction rub. No gallop. Pulmonary: Effort: Pulmonary effort is normal. No respiratory distress. Breath sounds: Wheezing present. Comments: Wheezing through out. Moist cough present. Chest: Chest wall: No tenderness. Abdominal: General: Bowel sounds are normal. There is no distension. Palpations: Abdomen is soft. There is no mass. Tenderness: There is no abdominal tenderness. There is no guarding or rebound. Hernia: No hernia is present. Musculoskeletal: General: No tenderness. Normal range of motion. Cervical back: Normal range of motion and neck supple. Lymphadenopathy: Cervical: No cervical adenopathy. Skin: General: Skin is warm and dry. Capillary Refill: Capillary refill takes less than 2 seconds. Findings: No rash. Neurological: Mental Status: He is alert and oriented to person, place, and time. Deep Tendon Reflexes: Reflexes are normal and symmetric. Psychiatric: Mood and Affect: Mood normal. Behavior: Behavior normal. Thought Content: Thought content normal. Judgment: Judgment normal. ASSESSMENT/PLAN: Ha was seen today for cough. Diagnoses and all orders for this visit: Chronic obstructive pulmonary disease with acute exacerbation ([facility]) - methylPREDNISolone acetate (DEPO-MEDROL) injection 40 mg Unable to tolerate oral steroids. Alters his mental health / moods. He request longer acting steroidal injection today. Depo-Medrol 40 mg IM administered today Continue albuterol 0.083% nebulizer today as directed PRN for wheezing and shortness of breath Patient is a current smoker, smoking cessation discussed today in office. He/She is not interested at this time -States he is down to 8 cigarettes per day. Is working on quitting smoking. ALL QUESTIONS ANSWERED Total time spent was 25 minutes: Preparing to see the patient (e.g., review of tests) Obtaining and/or reviewing separately obtained history Performing a medically appropriate examination and/or evaluation Counseling and educating the patient/family/caregiver Ordering medications, tests, or procedures Follow-up: Next scheduled Sooner if no improvement SULEIMAN Lozano 11/21/23 1508 documented in this encounter [facility] 10-14-2023 History of Present illness Narrative Images from the original note were not included. [address] [facility] [id number] SUBJECTIVE: Patient ID: Ha Krishnamurthy is a 48 y.o. male. Chief Complaint Patient presents with Anxiety Refill med Presents for anxiety follow up Is monitored by psychiatry every 3 months. He is also in counseling monthly. Offers no complaints today. No exacerbation of COPD. Smoker. Anxiety Patient reports no chest pain, palpitations or shortness of breath. The following portions of the patient's history were reviewed and updated as appropriate: allergies, current medications, past family history, past medical history, past social history, past surgical history and problem list. Past Surgical History: Procedure Laterality Date COLONOSCOPY 08/2019 CYSTOSCOPY 08/08/2018 DAVINCI REPAIR HERNIA EPIGASTRIC N/A 07/23/2022 Performed by Tracie Iraheta MD at [facility] ESOPHAGOGASTRODUODENOSCOPY INCISION AND DRAINAGE SCROTUM Right 01/19/2020 Performed by Rich Rhodes DO at [facility] ORCHIECTOMY Right 01/05/2020 Performed by Rich Rhodes DO at [facility] REPAIR HERNIA INGUINAL MESH Right 11/25/2018 Performed by Rich Rhodes DO at [facility] UPPER GASTROINTESTINAL ENDOSCOPY 08/2019 Past Medical History: Diagnosis Date Agoraphobia Allergic contact dermatitis due to other agents 03/27/2017 Anxiety Asthma Bladder infection 12/2018 Cervical adenopathy 08/25/2018 Chronic pain of right knee 11/08/2016 Colitis PATIENT SAYS HE WAS Dx BY DR WRIGHT COPD (chronic obstructive pulmonary disease) [place] Dental disease no teeth; dentures at home Emphysema of lung [place] Epididymitis GERD (gastroesophageal reflux disease) H. pylori infection Hematemesis/vomiting blood states has been occurring x 1.5 mths Inguinal lymphadenopathy 10/20/2018 Kidney stone 01/05/2019 Kidney stones 2019 Migraines Muscle strain of upper back 10/07/2018 Paranoid schizophrenia [place] PTSD (post-traumatic stress disorder) Schizoaffective disorder ([facility] Social anxiety disorder Strain of right trapezius muscle 09/30/2019 Urinary retention Urinary retention 08/25/2018 Visual impairment glasses Immunization History Administered Date(s) Administered COVID-19, mRNA, LNP-S, PF, 100mcg/0.5mL Dose 05/12/2020, 06/09/2020, 01/09/2021, 07/31/2021 Covid-19, Mrna, Lnp-s, Bivalent, Pf, 30mcg/0.3 ml 12/07/2021 Covid-19,mrna, Lnp-s, Pf, 50mcg/0.5ml 12+ 12/01/2022 Influenza, Injectable, quadrivalent (PF) 01/03/2017, 10/21/2017, 12/30/2018, 11/27/2021, 12/05/2022 Influenza, Recombinant, Quadrivalent, Injectable, Preserv 12/11/2019, 12/09/2020 Pneumococcal Conjugate 13-Valent 12/30/2018 REVIEW OF SYSTEMS: Review of Systems Constitutional: Negative for chills, fatigue and fever. HENT: Negative for hearing loss and trouble swallowing. Eyes: Negative for pain and visual disturbance. Respiratory: Negative for cough, chest tightness and shortness of breath. Cardiovascular: Negative for chest pain, palpitations and leg swelling. Gastrointestinal: Negative for blood in stool. Endocrine: Negative for polydipsia, polyphagia and polyuria. Genitourinary: Negative for difficulty urinating, dysuria, flank pain, hematuria, scrotal swelling and testicular pain. Musculoskeletal: Negative. Skin: Negative. Allergic/Immunologic: Negative. Neurological: Negative for seizures, syncope and headaches. Hematological: Does not bruise/bleed easily. Psychiatric/Behavioral: Negative. PHYSICAL EXAMINATION: Vitals: 10/14/23 1007 BP: 110/72 BP Site: Left Arm BP Postition: Sitting Pulse: 65 Resp: 20 Temp: 36.4 C (97.6 F) TempSrc: Oral SpO2: 99% Weight: 54.7 kg (120 lb 9.6 oz) Height: 170.2 cm (5' 7 ) Physical Exam Vitals and nursing note reviewed. Constitutional: General: He is not in acute distress. Appearance: He is well-developed. HENT: Head: Normocephalic and atraumatic. Right Ear: Tympanic membrane and external ear normal. Left Ear: Tympanic membrane and external ear normal. Nose: Nose normal. Mouth/Throat: Mouth: Mucous membranes are moist. Pharynx: No oropharyngeal exudate. Eyes: General: No scleral icterus. Right eye: No discharge. Left eye: No discharge. Conjunctiva/sclera: Conjunctivae normal. Pupils: Pupils are equal, round, and reactive to light. Neck: Vascular: No JVD. Cardiovascular: Rate and Rhythm: Normal rate and regular rhythm. Heart sounds: Normal heart sounds. No murmur heard. No friction rub. No gallop. Pulmonary: Effort: Pulmonary effort is normal. No respiratory distress. Breath sounds: Normal breath sounds. Chest: Chest wall: No tenderness. Abdominal: General: Bowel sounds are normal. There is no distension. Palpations: Abdomen is soft. There is no mass. Tenderness: There is no abdominal tenderness. There is no guarding or rebound. Hernia: No hernia is present. Musculoskeletal: General: No tenderness. Normal range of motion. Cervical back: Normal range of motion and neck supple. Lymphadenopathy: Cervical: No cervical adenopathy. Skin: General: Skin is warm and dry. Capillary Refill: Capillary refill takes less than 2 seconds. Findings: No rash. Neurological: Mental Status: He is alert and oriented to person, place, and time. Deep Tendon Reflexes: Reflexes are normal and symmetric. Psychiatric: Mood and Affect: Mood normal. Behavior: Behavior normal. Thought Content: Thought content normal. Judgment: Judgment normal. ASSESSMENT/PLAN: Ha was seen today for anxiety. Diagnoses and all orders for this visit: Social anxiety disorder Schizoaffective disorder, bipolar type (CMS-HCC) Paranoid schizophrenia (CMS-HCC) Agoraphobia with panic attacks Anxiety about health Continues to do well with lorazepam every 12 hours PRN. States he is taking routinely twice daily. No recent panic attacks which may interfere with ADLs and going outdoors. Schizophrenia is managed by [facility]. He is monitored every 3 months and attends counseling monthly. The OARRS/MAPPS database was reviewed today and found to be appropriate. No indication of medication diversion, or non compliance. Patient is a current smoker, smoking cessation discussed today in office. He/She is not interested at this time ALL QUESTIONS ANSWERED Total time spent was 25 minutes: Preparing to see the patient (e.g., review of tests) Obtaining and/or reviewing separately obtained history Performing a medically appropriate examination and/or evaluation Counseling and educating the patient/family/caregiver Ordering medications, tests, or procedures Follow-up: Narcotic agreement SULEIMAN Lozano 10/14/23 1038 documented in this encounter [facility] 10-14-2023 Instructions SULEIMAN Lozano - 10/14/2023 10:20 AM EDT Are You Ready To Kick The Habit? Free Tobacco Cessation Resources [facility] Services [facility] Centers provide all employees with free tobacco cessation services that include: Counseling to understand nicotine addiction Education about medications that can help you successfully quit Assistance with developing a plan to quit Call to set up an individual appointment or find out when group classes will be held: [facility]: [phone] [facility]: [phone] [facility]: [phone] [facility]: [phone] Quit Smoking Action Plan and Resources [facility] offers an eight-week, online smoking cessation plan to all [facility] employees, regardless of whether [employer] is your medical insurance provider. Go to [email or web address] and click the Health Risk Assessment and Resources link to get started. In the [employer] menu, click Action Plans instead of Health Risk Assessment to access the Quit Smoking Action Plan. Additional smoking cessation resources are also available to all [facility] employees on the [email or web address] web page at [email or web address]. [employer] Tobacco Cessation Program If [employer] is your medical insurance provider, there are more free resources available to you, including: No copays or deductibles on local tobacco cessation counseling services to help you quit Prescription assistance for tobacco cessation medications to help you quit For details about the tobacco cessation program available to [employer] members, go to www.[employer] (Search: Tobacco Cessation Program). [place] Tobacco Quit Line 2-120-WRZW-NOW ( ) is a toll-free, telephonic service that helps [place] residents quit smoking and using tobacco. It is staffed by experts who tailor a quit plan for you and provide you with advice. [place] Tobacco Quit Line 3-942-GNGS-NOW ( ) is a toll-free, telephonic service that helps [place] residents quit smoking and using tobacco. It is staffed by experts who tailor a quit plan for you and provide you with advice. Two weeks of nicotine replacement therapy may be provided at no charge, if needed. Additional Resources These national organizations also offer free information and resources to help you quit tobacco: [place] [employer]--www.cancer.org/healthy/s tayawayfromtobacco [place] Heart Association--www.heart.org (Search: Quit Smoking) Centers for Disease Control and Prevention--www.cdc.gov/tobacco [place] Lung Association--www.lungusa.org The following attachments cannot be sent through Care Everywhere.Anxiety Discharge Instructions, Adult (Mauritanian)documented in this encounter [facility]-14[facility]23 Miscellaneous Notes The OARRS/MAPPS database was reviewed today and found to be appropriate. No indication of medication diversion, or non compliance. [facility] Telephone encounter Note The OARRS/MAPPS database was reviewed today and found to be appropriate. No indication of medication diversion, or non compliance. [facility] 09-18-2023 History of Present illness Narrative Images from the original note were not included. [address] [place] [address] SUBJECTIVE: Patient ID: Ha Krishnamurthy is a 47 y.o. male. Chief Complaint Patient presents with high heart rate and BP States he took Zyrtec yesterday and noticed his blood pressure elevated 148/101 and pulse was in the 130's. Additional symptoms include dizziness. Currently his blood pressure is 110/80 and apical 60. Dizziness is resolved. Dizziness This is a new problem. The current episode started yesterday. The problem occurs rarely. The problem has been resolved. Pertinent negatives include no chest pain, chills, coughing, fatigue, fever or headaches. The symptoms are aggravated by walking. The following portions of the patient's history were reviewed and updated as appropriate: allergies, current medications, past family history, past medical history, past social history, past surgical history and problem list. Past Surgical History: Procedure Laterality Date COLONOSCOPY 08/2019 CYSTOSCOPY 08/08/2018 DAVINCI REPAIR HERNIA EPIGASTRIC N/A 07/23/2022 Performed by Tracie Iraheta MD at [facility] ESOPHAGOGASTRODUODENOSCOPY INCISION AND DRAINAGE SCROTUM Right 01/19/2020 Performed by Rich Rhodes DO at [facility] ORCHIECTOMY Right 01/05/2020 Performed by Rich Rhodes DO at [facility] REPAIR HERNIA INGUINAL MESH Right 11/25/2018 Performed by Rich Rhodes DO at [facility] UPPER GASTROINTESTINAL ENDOSCOPY 08/2019 Past Medical History: Diagnosis Date Agoraphobia Allergic contact dermatitis due to other agents 03/27/2017 Anxiety Asthma Bladder infection 12/2018 Cervical adenopathy 08/25/2018 Chronic pain of right knee 11/08/2016 Colitis PATIENT SAYS HE WAS Dx BY DR WRIGHT [place] Dental disease no teeth; dentures at home Emphysema of lung [place] Epididymitis GERD (gastroesophageal reflux disease) H. pylori infection Hematemesis/vomiting blood states has been occurring x 1.5 mths Inguinal lymphadenopathy 10/20/2018 Kidney stone 01/05/2019 Kidney stones 2019 Migraines Muscle strain of upper back 10/07/2018 Paranoid schizophrenia [place] PTSD (post-traumatic stress disorder) Schizoaffective disorder [place] Social anxiety disorder Strain of right trapezius muscle 09/30/2019 Urinary retention Urinary retention 08/25/2018 Visual impairment glasses Immunization History Administered Date(s) Administered COVID-19, mRNA, LNP-S, PF, 100mcg/0.5mL Dose 05/12/2020, 06/09/2020, 01/09/2021, 07/31/2021 Covid-19, Mrna, Lnp-s, Bivalent, Pf, 30mcg/0.3 ml 12/07/2021 Covid-19,mrna, Lnp-s, Pf, 50mcg/0.5ml 12+ 12/01/2022 Influenza, Injectable, quadrivalent (PF) 01/03/2017, 10/21/2017, 12/30/2018, 11/27/2021, 12/05/2022 Influenza, Recombinant, Quadrivalent, Injectable, Preserv 12/11/2019, 12/09/2020 Pneumococcal Conjugate 13-Valent 12/30/2018 REVIEW OF SYSTEMS: Review of Systems Constitutional: Negative for chills, fatigue and fever. HENT: Negative for hearing loss and trouble swallowing. Eyes: Negative for pain and visual disturbance. Respiratory: Negative for cough, chest tightness and shortness of breath. Cardiovascular: Negative for chest pain, palpitations and leg swelling. Gastrointestinal: Negative for blood in stool. Endocrine: Negative for polydipsia, polyphagia and polyuria. Genitourinary: Negative for difficulty urinating, dysuria, flank pain, hematuria, scrotal swelling and testicular pain. Musculoskeletal: Negative. Skin: Negative. Allergic/Immunologic: Negative. Neurological: Positive for dizziness. Negative for seizures, syncope and headaches. Hematological: Does not bruise/bleed easily. Psychiatric/Behavioral: Negative. PHYSICAL EXAMINATION: Vitals: 09/18/23 0840 BP: 110/80 BP Site: Left Arm BP Postition: Sitting Pulse: 60 Resp: 18 Temp: 36.4 C (97.6 F) TempSrc: Oral SpO2: 99% Weight: 57 kg (125 lb 11.2 oz) Height: 170.2 cm (5' 7 ) Patient noted to have elevated BMI and the following intervention(s) were applied: encouragement to exercise. Physical Exam Vitals and nursing note reviewed. Constitutional: General: He is not in acute distress. Appearance: He is well-developed. HENT: Head: Normocephalic and atraumatic. Right Ear: Tympanic membrane and external ear normal. Left Ear: Tympanic membrane and external ear normal. Nose: Nose normal. Mouth/Throat: Mouth: Mucous membranes are moist. Pharynx: No oropharyngeal exudate. Eyes: General: No scleral icterus. Right eye: No discharge. Left eye: No discharge. Conjunctiva/sclera: Conjunctivae normal. Pupils: Pupils are equal, round, and reactive to light. Neck: Vascular: No JVD. Cardiovascular: Rate and Rhythm: Normal rate and regular rhythm. Heart sounds: Normal heart sounds. No murmur heard. No friction rub. No gallop. Pulmonary: Effort: Pulmonary effort is normal. No respiratory distress. Breath sounds: Normal breath sounds. Chest: Chest wall: No tenderness. Abdominal: General: Bowel sounds are normal. There is no distension. Palpations: Abdomen is soft. There is no mass. Tenderness: There is no abdominal tenderness. There is no guarding or rebound. Hernia: No hernia is present. Musculoskeletal: General: No tenderness. Normal range of motion. Cervical back: Normal range of motion and neck supple. Lymphadenopathy: Cervical: No cervical adenopathy. Skin: General: Skin is warm and dry. Capillary Refill: Capillary refill takes less than 2 seconds. Findings: No rash. Neurological: Mental Status: He is alert and oriented to person, place, and time. Deep Tendon Reflexes: Reflexes are normal and symmetric. Psychiatric: Mood and Affect: Mood normal. Behavior: Behavior normal. Thought Content: Thought content normal. Judgment: Judgment normal. ASSESSMENT/PLAN: Ha was seen today for high heart rate and bp. Diagnoses and all orders for this visit: [id number] adverse effect of medication, initial encounter Stop Zyrtec States he took Zyrtec yesterday and noticed his blood pressure elevated 148/101 and pulse was in the 130's. Additional symptoms include dizziness. Currently his blood pressure is 110/80 and apical 60. Dizziness is resolved. We discussed using Flonase for allergic rhinitis symptoms. He has declined this. Has used this in the past and did not like route of taking Flonase Patient is a current smoker, smoking cessation discussed today in office. He/She is not interested at this time ALL QUESTIONS ANSWERED Total time spent was 25 minutes: Preparing to see the patient (e.g., review of tests) Obtaining and/or reviewing separately obtained history Performing a medically appropriate examination and/or evaluation Counseling and educating the patient/family/caregiver Ordering medications, tests, or procedures Follow-up: Next scheduled Sooner if needed SULEIMAN Lozano 09/18/23 0908 [facility] Instructions SULEIMAN Lozano - 09/18/2023 8:40 AM EDT Are You Ready To Kick The Habit? Free Tobacco Cessation Resources [facility] Services [facility] Tobacco [facility] Centers provide all employees with free tobacco cessation services that include: Counseling to understand nicotine addiction Education about medications that can help you successfully quit Assistance with developing a plan to quit Call to set up an individual appointment or find out when group classes will be held: [facility]: [phone] [facility]: [phone] [facility]: [phone] [facility]: [phone] Quit Smoking Action Plan and Resources [facility] offers an eight-week, online smoking cessation plan to all [facility] employees, regardless of whether [employer] is your medical insurance provider. Go to [email or web address] and click the Health Risk Assessment and Resources link to get started. In the [employer] menu, click Action Plans instead of Health Risk Assessment to access the Quit Smoking Action Plan. Additional smoking cessation resources are also available to all [facility] employees on the [email or web address] web page at [email or web address]. [employer] Tobacco Cessation Program If [employer] is your medical insurance provider, there are more free resources available to you, including: No copays or deductibles on local tobacco cessation counseling services to help you quit Prescription assistance for tobacco cessation medications to help you quit For details about the tobacco cessation program available to [employer] members, go to www.[employer] (Search: Tobacco Cessation Program). [place] Tobacco Quit Line 2-434-QXWD-NOW ( ) is a toll-free, telephonic service that helps [place] residents quit smoking and using tobacco. It is staffed by experts who tailor a quit plan for you and provide you with advice. [place] Tobacco Quit Line 3-053-FSFT-NOW ( ) is a toll-free, telephonic service that helps [place] residents quit smoking and using tobacco. It is staffed by experts who tailor a quit plan for you and provide you with advice. Two weeks of nicotine replacement therapy may be provided at no charge, if needed. Additional Resources These national organizations also offer free information and resources to help you quit tobacco: [place] Cancer Society--www.cancer.org/healthy/s tayawayfromtobacco [place] Heart Association--www.heart.org (Search: Quit Smoking) Centers for Disease Control and Prevention--www.cdc.gov/tobacco [place] Lung Association--www.lungusa.org The following attachments cannot be sent through Care Everywhere.Adverse Drug Reactions, Adult (Mauritanian)documented in this encounter [facility] 09-16-2023 Miscellaneous Notes Pt called requesting something sent in for his allergies .. Can you do that or would you like to see him first ? I just seen him last week. I sent over Zyrtec to his pharmacy Ok I will let him know documented in this encounter [facility] 09-16-2023 Telephone encounter Note Pt called requesting something sent in for his allergies .. Can you do that or would you like to see him first ? [facility] 09-16-2023 Telephone encounter Note I just seen him last week. I sent over Zyrtec to his pharmacy [facility] 09-16-2023 Telephone encounter Note Ok I will let him know [facility] [employer] [facility] 09-09-2023 History of Present illness Narrative Images from the original note were not included[address] [place] [address] SUBJECTIVE: Patient ID: Ha Krishnamurthy is a 47 y.o. male. Chief Complaint Patient presents with URI Ha presents today with exacerbation of COPD. Has been experiencing harsh coughing spells. Has not tried alleviating methods. Further states, he is out of albuterol nebulizer solution. Has been unable to do treatments. His sputum is clear to white. He request no oral steroids as this increases his mental health symptoms. COPD Primary symptoms: cough, dyspnea on exertion and frequent throat clearing Primary symptoms: no shortness of breath Chronicity: Recurrent Onset: In the past 7 days Frequency: Constantly Progression since onset: Waxing and waning Severity: Moderate Cough characteristics: harsh, nocturnal and productive Associated symptoms: nasal congestion and postnasal drip Associated symptoms: no fever and no trouble swallowing Aggravated by: Pollen and change in weather Alleviated by: Change in position, cold air and steroid inhaler Current Treatment: Inhaled corticosteriods Improvement on treatment: Moderate PMH includes: COPD and smoker The following portions of the patient's history were reviewed and updated as appropriate: allergies, current medications, past family history, past medical history, past social history, past surgical history and problem list. Past Surgical History: Procedure Laterality Date COLONOSCOPY 08/2019 CYSTOSCOPY 08/08/2018 DAVINCI REPAIR HERNIA EPIGASTRIC N/A 07/23/2022 Performed by Tracie Iraheta MD at [facility] ESOPHAGOGASTRODUODENOSCOPY INCISION AND DRAINAGE SCROTUM Right 01/19/2020 Performed by Rich Rhodes DO at [facility] ORCHIECTOMY Right 01/05/2020 Performed by Rich Rhodes DO at [facility] REPAIR HERNIA INGUINAL MESH Right 11/25/2018 Performed by Rich Rhodes DO at [facility] UPPER GASTROINTESTINAL ENDOSCOPY 08/2019 Past Medical History: Diagnosis Date Agoraphobia Allergic contact dermatitis due to other agents 03/27/2017 Anxiety Asthma Bladder infection 12/2018 Cervical adenopathy 08/25/2018 Chronic pain of right knee 11/08/2016 Colitis PATIENT SAYS HE WAS Dx BY DR WRIGHT [place]chronic obstructive [place] disease[place] Dental disease no teeth; dentures at home Emphysema of lung [place] Epididymitis GERD (gastroesophageal reflux disease) H. pylori infection Hematemesis/vomiting blood states has been occurring x 1.5 mths Inguinal lymphadenopathy 10/20/2018 Kidney stone 01/05/2019 Kidney stones 2019 Migraines Muscle strain of upper back 10/07/2018 Paranoid schizophrenia [place] PTSD (post-traumatic stress disorder) Schizoaffective disorder [place] Social anxiety disorder Strain of right trapezius muscle 09/30/2019 Urinary retention Urinary retention 08/25/2018 Visual impairment glasses Immunization History Administered Date(s) Administered COVID-19, mRNA, LNP-S, PF, 100mcg/0.5mL Dose 05/12/2020, 06/09/2020, 01/09/2021, 07/31/2021 Covid-19, Mrna, Lnp-s, Bivalent, Pf, 30mcg/0.3 ml 12/07/2021 Covid-19,mrna, Lnp-s, Pf, 50mcg/0.5ml 12+ 12/01/2022 Influenza, Injectable, quadrivalent (PF) 01/03/2017, 10/21/2017, 12/30/2018, 11/27/2021, 12/05/2022 Influenza, Recombinant, Quadrivalent, Injectable, Preserv 12/11/2019, 12/09/2020 Pneumococcal Conjugate 13-Valent 12/30/2018 REVIEW OF SYSTEMS: Review of Systems Constitutional: Negative for chills, fatigue and fever. HENT: Positive for postnasal drip. Negative for hearing loss and trouble swallowing. Eyes: Negative for pain and visual disturbance. Respiratory: Positive for cough and chest tightness. Negative for shortness of breath. Cardiovascular: Positive for dyspnea on exertion. Negative for palpitations and leg swelling. Gastrointestinal: Negative for blood in stool. Endocrine: Negative for polydipsia, polyphagia and polyuria. Genitourinary: Negative for difficulty urinating, flank pain, hematuria, scrotal swelling and testicular pain. Musculoskeletal: Negative. Skin: Negative. Allergic/Immunologic: Negative. Neurological: Negative for seizures and syncope. Hematological: Does not bruise/bleed easily. Psychiatric/Behavioral: Negative. PHYSICAL EXAMINATION: Vitals: 09/09/23 1456 BP: 120/80 BP Site: Left Arm BP Postition: Sitting Pulse: 63 Resp: 18 Temp: 36.5 C (97.7 F) TempSrc: Oral SpO2: 99% Weight: 56.8 kg (125 lb 4.8 oz) Height: 170.2 cm (5' 7 ) Patient noted to have elevated BMI and the following intervention(s) were applied: encouragement to exercise. Physical Exam Vitals and nursing note reviewed. Constitutional: General: He is not in acute distress. Appearance: He is well-developed. HENT: Head: Normocephalic and atraumatic. Right Ear: Tympanic membrane and external ear normal. Left Ear: Tympanic membrane and external ear normal. Nose: Nose normal. Mouth/Throat: Mouth: Mucous membranes are moist. Pharynx: No oropharyngeal exudate. Eyes: General: No scleral icterus. Right eye: No discharge. Left eye: No discharge. Conjunctiva/sclera: Conjunctivae normal. Pupils: Pupils are equal, round, and reactive to light. Neck: Vascular: No JVD. Cardiovascular: Rate and Rhythm: Normal rate and regular rhythm. Heart sounds: Normal heart sounds. No murmur heard. No friction rub. No gallop. Pulmonary: Effort: Pulmonary effort is normal. No respiratory distress. Comments: Diminished. Moist non productive harsh cough present Chest: Chest wall: No tenderness. Abdominal: General: Bowel sounds are normal. There is no distension. Palpations: Abdomen is soft. There is no mass. Tenderness: There is no abdominal tenderness. There is no guarding or rebound. Hernia: No hernia is present. Musculoskeletal: General: No tenderness. Normal range of motion. Cervical back: Normal range of motion and neck supple. Lymphadenopathy: Cervical: No cervical adenopathy. Skin: General: Skin is warm and dry. Capillary Refill: Capillary refill takes less than 2 seconds. Findings: No rash. Neurological: Mental Status: He is alert and oriented to person, place, and time. Deep Tendon Reflexes: Reflexes are normal and symmetric. Psychiatric: Mood and Affect: Mood normal. Behavior: Behavior normal. Thought Content: Thought content normal. Judgment: Judgment normal. ASSESSMENT/PLAN: Ha was seen today for uri. Diagnoses and all orders for this visit: Chronic obstructive pulmonary disease with acute exacerbation ([facility]) - albuterol (PROVENTIL,VENTOLIN) 2.5 mg /3 mL (0.083 %) nebulizer solution; Inhale 3 mL (2.5 mg total) by nebulization every 6 (six) hours as needed for wheezing or shortness of breath. - methylPREDNISolone acetate (DEPO-MEDROL) injection 40 mg - benzonatate (TESSALON PERLES) 100 mg capsule; Take 1 capsule (100 mg total) by mouth 3 (three) times a day as needed for cough. Unable to tolerate oral steroids. Alters his mental health / moods. He request longer acting steroidal injection today. Depo-Medrol 40 mg IM administered today Reorder albuterol 0.083% nebulizer today as directed PRN for wheezing and shortness of breath Benzonatate 100 mg oral TID PRN for cough Patient is a current smoker, smoking cessation discussed today in office. He/She is not interested at this time ALL QUESTIONS ANSWERED Total time spent was 25 minutes: Preparing to see the patient (e.g., review of tests) Obtaining and/or reviewing separately obtained history Performing a medically appropriate examination and/or evaluation Counseling and educating the patient/family/caregiver Ordering medications, tests, or procedures Follow-up: Next scheduled Sooner if needed SULEIMAN Lozano 09/09/23 1527 documented in this encounter [facility] 07-09-2023 History of Present illness Narrative Images from the original note were not included. [address] [place] [address] SUBJECTIVE: Patient ID: Ha Krishnamurthy is a 47 y.o. male. Chief Complaint Patient presents with Anxiety Controlled sub Presents for follow up States he would like referral to Dr. Baumann, pulmonology for COPD. Is currently monitored by [facility] pulmonology. States he would like to go to the specialist in pulmonology where his mother is monitored. Monitored by psychiatry every 3 months. Is currently taking lorazepam twice daily. States this has improved his quality of life significantly. He is able to leave the house. Was unable previously due to anxiety related to agoraphobia. Anxiety Patient reports no chest pain, palpitations or shortness of breath. The following portions of the patient's history were reviewed and updated as appropriate: allergies, current medications, past family history, past medical history, past social history, past surgical history and problem list. Past Surgical History: Procedure Laterality Date COLONOSCOPY 08/2019 CYSTOSCOPY 08/08/2018 DAVINCI REPAIR HERNIA EPIGASTRIC N/A 07/23/2022 Performed by Tracie Iraheta MD at [facility] ESOPHAGOGASTRODUODENOSCOPY INCISION AND DRAINAGE SCROTUM Right 01/19/2020 Performed by Rich Rhodes DO at [facility] ORCHIECTOMY Right 01/05/2020 Performed by Rich Rhodes DO at [facility] REPAIR HERNIA INGUINAL MESH Right 11/25/2018 Performed by Rich Rhodes DO at [facility] UPPER GASTROINTESTINAL ENDOSCOPY 08/2019 Past Medical History: Diagnosis Date Agoraphobia Allergic contact dermatitis due to other agents 03/27/2017 Anxiety Asthma Bladder infection 12/2018 Cervical adenopathy 08/25/2018 Chronic pain of right knee 11/08/2016 Colitis PATIENT SAYS HE WAS Dx BY DR WRIGHT COPD (chronic obstructive pulmonary disease) [place] Dental disease no teeth; dentures at home Emphysema of lung ([facility] Epididymitis GERD (gastroesophageal reflux disease) H. pylori infection Hematemesis/vomiting blood states has been occurring x 1.5 mths Inguinal lymphadenopathy 10/20/2018 Kidney stone 01/05/2019 Kidney stones 2019 Migraines Muscle strain of upper back 10/07/2018 Paranoid schizophrenia ([facility] PTSD (post-traumatic stress disorder) Schizoaffective disorder ([facility]) Social anxiety disorder Strain of right trapezius muscle 09/30/2019 Urinary retention Urinary retention 08/25/2018 Visual impairment glasses Immunization History Administered Date(s) Administered COVID-19, mRNA, LNP-S, PF, 100mcg/0.5mL Dose 05/12/2020, 06/09/2020, 01/09/2021, 07/31/2021 Covid-19, Mrna, Lnp-s, Bivalent, Pf, 30mcg/0.3 ml 12/07/2021 Covid-19,mrna, Lnp-s, Pf, 50mcg/0.5ml 12+ 12/01/2022 Influenza, Injectable, quadrivalent (PF) 01/03/2017, 10/21/2017, 12/30/2018, 11/27/2021, 12/05/2022 Influenza, Recombinant, Quadrivalent, Injectable, Preserv 12/11/2019, 12/09/2020 Pneumococcal Conjugate 13-Valent 12/30/2018 REVIEW OF SYSTEMS: Review of Systems Constitutional: Negative for chills, fatigue and fever. HENT: Negative for hearing loss and trouble swallowing. Eyes: Negative for pain and visual disturbance. Respiratory: Negative for cough, chest tightness and shortness of breath. Cardiovascular: Negative for chest pain, palpitations and leg swelling. Gastrointestinal: Negative for blood in stool. Endocrine: Negative for polydipsia, polyphagia and polyuria. Genitourinary: Negative for difficulty urinating, dysuria, flank pain, hematuria, scrotal swelling and testicular pain. Musculoskeletal: Negative. Skin: Negative. Allergic/Immunologic: Negative. Neurological: Negative for seizures, syncope and headaches. Hematological: Does not bruise/bleed easily. Psychiatric/Behavioral: Negative. PHYSICAL EXAMINATION: Vitals: 07/09/23 0951 BP: 120/68 BP Site: Left Arm BP Postition: Sitting Pulse: 75 Resp: 24 Temp: 36.7 C (98 F) TempSrc: Oral SpO2: 98% Weight: 55.8 kg (123 lb 1.6 oz) Height: 170.2 cm (5' 7 ) Physical Exam Vitals and nursing note reviewed. Constitutional: General: He is not in acute distress. Appearance: He is well-developed. HENT: Head: Normocephalic and atraumatic. Right Ear: Tympanic membrane and external ear normal. Left Ear: Tympanic membrane and external ear normal. Nose: Nose normal. Mouth/Throat: Mouth: Mucous membranes are moist. Pharynx: No oropharyngeal exudate. Eyes: General: No scleral icterus. Right eye: No discharge. Left eye: No discharge. Conjunctiva/sclera: Conjunctivae normal. Pupils: Pupils are equal, round, and reactive to light. Neck: Vascular: No JVD. Cardiovascular: Rate and Rhythm: Normal rate and regular rhythm. Heart sounds: Normal heart sounds. No murmur heard. No friction rub. No gallop. Pulmonary: Effort: Pulmonary effort is normal. No respiratory distress. Breath sounds: Normal breath sounds. Chest: Chest wall: No tenderness. Abdominal: General: Bowel sounds are normal. There is no distension. Palpations: Abdomen is soft. There is no mass. Tenderness: There is no abdominal tenderness. There is no guarding or rebound. Hernia: No hernia is present. Musculoskeletal: General: No tenderness. Normal range of motion. Cervical back: Normal range of motion and neck supple. Lymphadenopathy: Cervical: No cervical adenopathy. Skin: General: Skin is warm and dry. Capillary Refill: Capillary refill takes less than 2 seconds. Findings: No rash. Neurological: Mental Status: He is alert and oriented to person, place, and time. Deep Tendon Reflexes: Reflexes are normal and symmetric. Psychiatric: Mood and Affect: Mood normal. Behavior: Behavior normal. Thought Content: Thought content normal. Judgment: Judgment normal. ASSESSMENT/PLAN: Ha was seen today for anxiety. Diagnoses and all orders for this visit: Narcotic use agreement exists - Benzodiazepine cnf urine; Future Panlobular emphysema ([facility]) - Ambulatory referral to Pulmonary Medicine (Non-[facility]); Future - njlxebvoslk-qaoomuxzw-tzofzetp (TRELEGY ELLIPTA) 200-62.5-25 mcg blister with device; Inhale 1 puff in the morning. Trigeminal neuralgia - gabapentin (NEURONTIN) 100 mg capsule; Take 1 capsule (100 mg total) by mouth in the morning and at bedtime. Agoraphobia with panic attacks - LORazepam (ATIVAN) 0.5 mg tablet; Take 1 tablet (0.5 mg total) by mouth every 12 (twelve) hours as needed for anxiety. Anxiety about health - LORazepam (ATIVAN) 0.5 mg tablet; Take 1 tablet (0.5 mg total) by mouth every 12 (twelve) hours as needed for anxiety. Generalized anxiety disorder with panic attacks - LORazepam (ATIVAN) 0.5 mg tablet; Take 1 tablet (0.5 mg total) by mouth every 12 (twelve) hours as needed for anxiety. 1. Severe COPD History of multiple blebs. Monitored by pulmonology No current exacerbation Doing well with Trelegy 200-62.5-25 Samples provided today. Patient is a current smoker, smoking cessation discussed today in office. He/She is not interested at this time Referral to Dr. Baumann per patient request 2. Anxiety With history of somatism with health ailments and agoraphobia. Lorazpam has alleviated his symptoms. Will reorder. Monitored by psychiatry every 3 months and [facility] case management monthly Diagnoses agoraphobia, panic attacks, schizophrenia Urine drug screen collected Controlled substance agreement updated 3. GERD Reports is overall stable. Denies hematemesis Encourage limited or avoiding food and beverages which may trigger Continue Protonix 40 mg oral daily Is monitored by Dr. Mitchell, GI 4. Trigeminal neuralgia Controlled with gabapentin 100 mg oral twice daily The OARRS/MAPPS database was reviewed today and found to be appropriate. No indication of medication diversion, or non compliance. ALL QUESTIONS ANSWERED Total time spent was 30 minutes: Preparing to see the patient (e.g., review of tests) Obtaining and/or reviewing separately obtained history Performing a medically appropriate examination and/or evaluation Counseling and educating the patient/family/caregiver Ordering medications, tests, or procedures Follow-up: 3 months SULEIMAN Lozano 07/09/23 1033 documented in this encounter [facility] 07-09-2023 Instructions SULEIMAN Lozano - 07/09/2023 10:00 AM EDT Are You Ready To Kick The Habit? Free Tobacco Cessation Resources [facility] Services [facility] Centers provide all employees with free tobacco cessation services that include: Counseling to understand nicotine addiction Education about medications that can help you successfully quit Assistance with developing a plan to quit Call to set up an individual appointment or find out when group classes will be held: [facility]: [phone] [facility]: [phone] [facility]: [phone] [facility]: [phone] Quit Smoking Action Plan and Resources [facility] offers an eight-week, online smoking cessation plan to all [facility] employees, regardless of whether [employer] is your medical insurance provider. Go to [email or web address] and click the Health Risk Assessment and Resources link to get started. In the Djold[employer]Qu[employer]ju[employer] menu, click Action Plans instead of Health Risk Assessment to access the Quit Smoking Action Plan. Additional smoking cessation resources are also available to all [employer] employees on the [employer] web page at [email or web address]. [place] Tobacco Cessation [facility] If [place] is your medical insurance provider, there are more free resources available to you, including: No copays or deductibles on local tobacco cessation counseling services to help you quit Prescription assistance for tobacco cessation medications to help you quit For details about the tobacco cessation program available to [employer] members, go to www.[employer] (Search: Tobacco Cessation Program). [place] Tobacco Quit Line 1-820-JTZT-NOW ( ) is a toll-free, telephonic service that helps [place] residents quit smoking and using tobacco. It is staffed by experts who tailor a quit plan for you and provide you with advice. [place] Tobacco Quit Line 0-449-GLCY-NOW ( ) is a toll-free, telephonic service that helps [place] residents quit smoking and using tobacco. It is staffed by experts who tailor a quit plan for you and provide you with advice. Two weeks of nicotine replacement therapy may be provided at no charge, if needed. Additional Resources These national organizations also offer free information and resources to help you quit tobacco: [place] Cancer Society--www.cancer.org/healthy/s tayawayfromtobacco [place] Heart Association--www.heart.org (Search: Quit Smoking) Centers for Disease Control and Prevention--www.cdc.gov/tobacco [place] Lung Association--www.lungusa.org The following attachments cannot be sent through Care Everywhere.Agoraphobia (Mauritanian)documented in this encounter [facility] 04-29-2023 History of Present illness Narrative Images from the original note were not included. [address] [place] [address] SUBJECTIVE: Patient ID: Ha Krishnamurthy is a 47 y.o. male. Chief Complaint Patient presents with Nasal Congestion Neg covid. 1 week Symptoms started over one week ago with congestion, increased coughing. Sputum is clear to white Patient feels his COPD is exacerbated. Has not been using albuterol nebulizer- is out of medication. He request steroids to aid his congestion and breathing but would like an injection. Oral steroids cause increased symptoms of anxiety and schizophrenia symptoms. COPD Primary symptoms: chest tightness, cough, dyspnea on exertion, shortness of breath and wheezing Chronicity: Chronic Onset: More than 1 year ago Frequency: Daily Progression since onset: Gradually worsening Severity: Moderate Cough characteristics: productive of sputum (Clear to white sputum color) Associated symptoms: nasal congestion and postnasal drip Associated symptoms: no chest pain, no fever, no headaches and no trouble swallowing Aggravated by: Pollen, URI, change in weather, emotional stress, climbing stairs and exposure to smoke Alleviated by: Steroid inhaler Current Treatment: Albuterol Lung disease risks: Smoking/tobacco exposure PMH includes: COPD and smoker The following portions of the patient's history were reviewed and updated as appropriate: allergies, current medications, past family history, past medical history, past social history, past surgical history and problem list. Past Surgical History: Procedure Laterality Date COLONOSCOPY 08/2019 CYSTOSCOPY 08/08/2018 DAVINCI REPAIR HERNIA EPIGASTRIC N/A 07/23/2022 Performed by Tracie Iraheta MD at [facility] ESOPHAGOGASTRODUODENOSCOPY INCISION AND DRAINAGE SCROTUM Right 01/19/2020 Performed by Rich Rhodes DO at [facility] ORCHIECTOMY Right 01/05/2020 Performed by Rich Rhodes DO at [facility] REPAIR HERNIA INGUINAL MESH Right 11/25/2018 Performed by Rich Rhodes DO at [facility] UPPER GASTROINTESTINAL ENDOSCOPY 08/2019 Past Medical History: Diagnosis Date Agoraphobia Allergic contact dermatitis due to other agents 03/27/2017 Anxiety Asthma Bladder infection 12/2018 Cervical adenopathy 08/25/2018 Chronic pain of right knee 11/08/2016 Colitis PATIENT SAYS HE WAS Dx BY DR WRIGHT COPD (chronic obstructive pulmonary disease) [place] Dental disease no teeth; dentures at home Emphysema of lung ([facility]) Epididymitis GERD (gastroesophageal reflux disease) H. pylori infection Hematemesis/vomiting blood states has been occurring x 1.5 mths Inguinal lymphadenopathy 10/20/2018 Kidney stone 01/05/2019 Kidney stones 2019 Migraines Muscle strain of upper back 10/07/2018 Paranoid schizophrenia ([facility] PTSD (post-traumatic stress disorder) Schizoaffective disorder ([facility]) Social anxiety disorder Strain of right trapezius muscle 09/30/2019 Urinary retention Urinary retention 08/25/2018 Visual impairment glasses Immunization History Administered Date(s) Administered COVID-19, mRNA, LNP-S, PF, 100mcg/0.5mL Dose 05/12/2020, 06/09/2020, 01/09/2021, 07/31/2021 Covid-19, Mrna, Lnp-s, Bivalent, Pf, 30mcg/0.3 ml 12/07/2021 Covid-19,mrna, Lnp-s, Pf, 50mcg/0.5ml 12+ 12/01/2022 Influenza, Injectable, quadrivalent (PF) 01/03/2017, 10/21/2017, 12/30/2018, 11/27/2021, 12/05/2022 Influenza, Recombinant, Quadrivalent, Injectable, Preserv 12/11/2019, 12/09/2020 Pneumococcal Conjugate 13-Valent 12/30/2018 REVIEW OF SYSTEMS: Review of Systems Constitutional: Negative for chills, fatigue and fever. HENT: Positive for congestion and postnasal drip. Negative for hearing loss and trouble swallowing. Eyes: Negative for pain and visual disturbance. Respiratory: Positive for cough, chest tightness, shortness of breath and wheezing. Cardiovascular: Positive for dyspnea on exertion. Negative for chest pain, palpitations and leg swelling. Gastrointestinal: Negative for blood in stool. Endocrine: Negative for polydipsia, polyphagia and polyuria. Genitourinary: Negative for difficulty urinating, dysuria, flank pain, hematuria, scrotal swelling and testicular pain. Musculoskeletal: Negative. Skin: Negative. Allergic/Immunologic: Negative. Neurological: Negative for seizures, syncope and headaches. Hematological: Does not bruise/bleed easily. Psychiatric/Behavioral: Negative. PHYSICAL EXAMINATION: Vitals: 04/29/23 1059 BP: 122/70 BP Site: Left Arm BP Postition: Sitting Pulse: 80 Temp: 36.6 C (97.8 F) TempSrc: Oral SpO2: 98% Weight: 58.6 kg (129 lb 1.6 oz) Height: 170.2 cm (5' 7 ) Physical Exam Vitals and nursing note reviewed. Constitutional: General: He is not in acute distress. Appearance: He is well-developed. HENT: Head: Normocephalic and atraumatic. Right Ear: Tympanic membrane and external ear normal. Left Ear: Tympanic membrane and external ear normal. Nose: Nose normal. Mouth/Throat: Mouth: Mucous membranes are moist. Pharynx: No oropharyngeal exudate. Comments: Erythema. Clear post nasal drainage Eyes: General: No scleral icterus. Right eye: No discharge. Left eye: No discharge. Conjunctiva/sclera: Conjunctivae normal. Pupils: Pupils are equal, round, and reactive to light. Neck: Vascular: No JVD. Cardiovascular: Rate and Rhythm: Normal rate and regular rhythm. Heart sounds: Normal heart sounds. No murmur heard. No friction rub. No gallop. Pulmonary: Effort: Pulmonary effort is normal. No respiratory distress. Breath sounds: Wheezing present. Chest: Chest wall: No tenderness. Abdominal: General: Bowel sounds are normal. There is no distension. Palpations: Abdomen is soft. There is no mass. Tenderness: There is no abdominal tenderness. There is no guarding or rebound. Hernia: No hernia is present. Musculoskeletal: General: No tenderness. Normal range of motion. Cervical back: Normal range of motion and neck supple. Lymphadenopathy: Cervical: No cervical adenopathy. Skin: General: Skin is warm and dry. Capillary Refill: Capillary refill takes less than 2 seconds. Findings: No rash. Neurological: Mental Status: He is alert and oriented to person, place, and time. Deep Tendon Reflexes: Reflexes are normal and symmetric. Psychiatric: Mood and Affect: Mood normal. Behavior: Behavior normal. Thought Content: Thought content normal. Judgment: Judgment normal. ASSESSMENT/PLAN: Ha was seen today for nasal congestion. Diagnoses and all orders for this visit: Chronic obstructive pulmonary disease with acute exacerbation ([facility]) - albuterol (PROVENTIL,VENTOLIN) 2.5 mg /3 mL (0.083 %) nebulizer solution; Inhale 3 mL (2.5 mg total) by nebulization every 6 (six) hours as needed for wheezing or shortness of breath. - methylPREDNISolone acetate (DEPO-MEDROL) injection 40 mg Panlobular emphysema ([facility]) - duegansyeog-lzqbqwtck-wsqqshhk (TRELEGY ELLIPTA) 200-62.5-25 mcg blister with device; Inhale 1 puff in the morning. Recommend oral taper dose of Prednisone. Patient declines as oral dosing increases his anxiety and schizophrenia symptoms. Administered Depo Medrol 40 mg IM in office today Samples of Trelegy Ellipta 200-62.5-25 mcg. Lot (1) [id number]. Expiration 08/2024 Reorder albuterol 0.083% nebulizer solution. Administer as directed PRN for wheezing and shortness of breath. Patient is a current smoker, smoking cessation discussed today in office. He/She is not interested at this time ALL QUESTIONS ANSWERED Total time spent was 25 minutes: Preparing to see the patient (e.g., review of tests) Obtaining and/or reviewing separately obtained history Performing a medically appropriate examination and/or evaluation Counseling and educating the patient/family/caregiver Ordering medications, tests, or procedures Follow-up: Next scheduled SULEIMAN Lozano 04/29/23 1408 documented in this encounter [facility] 04-29-2023 Instructions SULEIMAN Lozano - 04/29/2023 11:00 AM EST Are You Ready To Kick The Habit? Free Tobacco Cessation Resources [facility] Services [facility] Centers provide all employees with free tobacco cessation services that include: Counseling to understand nicotine addiction Education about medications that can help you successfully quit Assistance with developing a plan to quit Call to set up an individual appointment or find out when group classes will be held: [facility]: [phone] [facility]: [phone] [facility]: [phone] [facility]: [phone] Quit Smoking Action Plan and Resources [facility] offers an eight-week, online smoking cessation plan to all [facility] employees, regardless of whether [employer] is your medical insurance provider. Go to [email or web address] and click the Health Risk Assessment and Resources link to get started. In the Mang[employer] menu, click Action Plans instead of Health Risk Assessment to access the Quit Smoking Action Plan. Additional smoking cessation resources are also available to all [employer] employees on the [employer] web page at [email or web address] [email or web address]. [place] Tobacco Cessation Program If [employer] is your medical insurance provider, there are more free resources available to you, including: No copays or deductibles on local tobacco cessation counseling services to help you quit Prescription assistance for tobacco cessation medications to help you quit For details about the tobacco cessation program available to [employer] members, go to www.[employer] (Search: Tobacco Cessation Program). [place] Tobacco Quit Line 9-015-XZET-NOW ( ) is a toll-free, telephonic service that helps [place] residents quit smoking and using tobacco. It is staffed by experts who tailor a quit plan for you and provide you with advice. [place] Tobacco Quit Line 6-324-EUMZ-NOW ( ) is a toll-free, telephonic service that helps [place] residents quit smoking and using tobacco. It is staffed by experts who tailor a quit plan for you and provide you with advice. Two weeks of nicotine replacement therapy may be provided at no charge, if needed. Additional Resources These national organizations also offer free information and resources to help you quit tobacco: [place] Cancer [employer]--www.cancer.org/healthy/s tayawayfromtobacco [place] Heart Association--www.heart.org (Search: Quit Smoking) Centers for Disease Control and Prevention--www.cdc.gov/tobacco [place] Lung Association--www.lungusa.org The following attachments cannot be sent through Care Everywhere.Chronic obstructive pulmonary disease (COPD) (Mauritanian)documented in this encounter [facility] 04-04-2023 History of Present illness Narrative Images from the original note were not included. [place] [address] SUBJECTIVE: Patient ID: Ha Krishnamurthy is a 47 y.o. male. Chief Complaint Patient presents with COPD Presents for COPD follow up States he is not currently exacerbated. Has been using Trelegy daily as directed. He has noticed approximately 75% benefit. Uses nebulizer albuterol 1-2 times daily COPD Primary symptoms: dyspnea on exertion and frequent throat clearing Primary symptoms: no cough and no shortness of breath Chronicity: Chronic Onset: More than 1 year ago Frequency: Daily Progression since onset: Gradually improving Severity: Moderate Associated symptoms: nasal congestion and postnasal drip Associated symptoms: no chest pain, no fever, no headaches and no trouble swallowing Aggravated by: Emotional stress, allergen exposure, change in weather, climbing stairs and exposure to smoke Alleviated by: Steroid inhaler, beta-agonist and nebulizer PMH includes: COPD The following portions of the patient's history were reviewed and updated as appropriate: allergies, current medications, past family history, past medical history, past social history, past surgical history and problem list. Past Surgical History: Procedure Laterality Date COLONOSCOPY 08/2019 CYSTOSCOPY 08/08/2018 DAVINCI REPAIR HERNIA EPIGASTRIC N/A 07/23/2022 Performed by Tracie Iraheta MD at [facility] ESOPHAGOGASTRODUODENOSCOPY INCISION AND DRAINAGE SCROTUM Right 01/19/2020 Performed by Rich hRodes DO at [facility] ORCHIECTOMY Right 01/05/2020 Performed by Rich Rhodes DO at [facility] REPAIR HERNIA INGUINAL MESH Right 11/25/2018 Performed by Rich Rhodes DO at [facility] UPPER GASTROINTESTINAL ENDOSCOPY 08/2019 Past Medical History: Diagnosis Date Agoraphobia Allergic contact dermatitis due to other agents 03/27/2017 Anxiety Asthma Bladder infection 12/2018 Cervical adenopathy 08/25/2018 Chronic pain of right knee 11/08/2016 Colitis PATIENT SAYS HE WAS Dx BY DR WRIGHT COPD (chronic obstructive pulmonary disease) [place] Dental disease no teeth; dentures at home Emphysema of lung [place] Epididymitis GERD (gastroesophageal reflux disease) H. pylori infection Hematemesis/vomiting blood states has been occurring x 1.5 mths Inguinal lymphadenopathy 10/20/2018 Kidney stone 01/05/2019 Kidney stones 2019 Migraines Muscle strain of upper back 10/07/2018 Paranoid schizophrenia [place] PTSD (post-traumatic stress disorder) Schizoaffective disorder ([facility] Social anxiety disorder Strain of right trapezius muscle 09/30/2019 Urinary retention Urinary retention 08/25/2018 Visual impairment glasses Immunization History Administered Date(s) Administered COVID-19, mRNA, LNP-S, PF, 100mcg/0.5mL Dose 05/12/2020, 06/09/2020, 01/09/2021, 07/31/2021 Covid-19, Mrna, Lnp-s, Bivalent, Pf, 30mcg/0.3 ml 12/07/2021 Covid-19,mrna, Lnp-s, Pf, 50mcg/0.5ml 12+ 12/01/2022 Influenza, Injectable, quadrivalent (PF) 01/03/2017, 10/21/2017, 12/30/2018, 11/27/2021, 12/05/2022 Influenza, Recombinant, Quadrivalent, Injectable, Preserv 12/11/2019, 12/09/2020 Pneumococcal Conjugate 13-Valent 12/30/2018 REVIEW OF SYSTEMS: Review of Systems Constitutional: Negative for chills, fatigue and fever. HENT: Positive for postnasal drip. Negative for hearing loss and trouble swallowing. Eyes: Negative for pain and visual disturbance. Respiratory: Negative for cough, chest tightness and shortness of breath. Cardiovascular: Positive for dyspnea on exertion. Negative for chest pain, palpitations and leg swelling. Gastrointestinal: Negative for blood in stool. Endocrine: Negative for polydipsia, polyphagia and polyuria. Genitourinary: Negative for difficulty urinating, dysuria, flank pain, hematuria, scrotal swelling and testicular pain. Musculoskeletal: Negative. Skin: Negative. Allergic/Immunologic: Negative. Neurological: Negative for seizures, syncope and headaches. Hematological: Does not bruise/bleed easily. Psychiatric/Behavioral: Negative. PHYSICAL EXAMINATION: Vitals: 04/04/23 1528 BP: 110/70 BP Site: Left Arm BP Postition: Sitting Pulse: 58 Temp: 36.8 C (98.3 F) TempSrc: Tympanic SpO2: 98% Weight: 57.1 kg (125 lb 14.4 oz) Height: 170.2 cm (5' 7 ) Physical Exam Vitals and nursing note reviewed. Constitutional: General: He is not in acute distress. Appearance: He is well-developed. HENT: Head: Normocephalic and atraumatic. Right Ear: Tympanic membrane and external ear normal. Left Ear: Tympanic membrane and external ear normal. Nose: Nose normal. Mouth/Throat: Mouth: Mucous membranes are moist. Pharynx: No oropharyngeal exudate. Eyes: General: No scleral icterus. Right eye: No discharge. Left eye: No discharge. Conjunctiva/sclera: Conjunctivae normal. Pupils: Pupils are equal, round, and reactive to light. Neck: Vascular: No JVD. Cardiovascular: Rate and Rhythm: Normal rate and regular rhythm. Heart sounds: Normal heart sounds. No murmur heard. No friction rub. No gallop. Pulmonary: Effort: Pulmonary effort is normal. No respiratory distress. Breath sounds: Normal breath sounds. Comments: Scattered expiratory wheezing bilateral bases Chest: Chest wall: No tenderness. Abdominal: General: Bowel sounds are normal. There is no distension. Palpations: Abdomen is soft. There is no mass. Tenderness: There is no abdominal tenderness. There is no guarding or rebound. Hernia: No hernia is present. Musculoskeletal: General: No tenderness. Normal range of motion. Cervical back: Normal range of motion and neck supple. Lymphadenopathy: Cervical: No cervical adenopathy. Skin: General: Skin is warm and dry. Capillary Refill: Capillary refill takes less than 2 seconds. Findings: No rash. Neurological: Mental Status: He is alert and oriented to person, place, and time. Deep Tendon Reflexes: Reflexes are normal and symmetric. Psychiatric: Mood and Affect: Mood normal. Behavior: Behavior normal. Thought Content: Thought content normal. Judgment: Judgment normal. ASSESSMENT/PLAN: Ha was seen today for copd. Diagnoses and all orders for this visit: Panlobular emphysema ([facility] - dhswqjlnuxr-ohwccxpyo-tftfxyuv (TRELEGY ELLIPTA) 200-62.5-25 mcg blister with device; Inhale 1 puff in the morning. Dilatation of aorta ([facility]) Schizoaffective disorder, bipolar type ([facility]) Schizoaffective disorder is stable. Managed by psychiatry. Attends counseling routinely. Panlobular emphysema. Stable. No current exacerbation. Continue Trelegy Samples provided today Dilation of aorta stable at 3.9cm. Yearly CT low dose screening due after May 2023. Patient is a current smoker, smoking cessation discussed today in office. He/She is not interested at this time The OARRS/MAPPS database was reviewed today and found to be appropriate. No indication of medication diversion, or non compliance. ALL QUESTIONS ANSWERED Total time spent was 25 minutes: Preparing to see the patient (e.g., review of tests) Obtaining and/or reviewing separately obtained history Performing a medically appropriate examination and/or evaluation Counseling and educating the patient/family/caregiver Ordering medications, tests, or procedures Follow-up: Next scheduled 3 month SULEIMAN Lozano 04/08/23 1142 documented in this encounter [facility] 05-30-2022 Evaluation note Encounter Date Diagnosis Assessment Notes May, Microscopic colitis (ICD-10 - K52.89) May, Diarrhea (ICD-10 - R19.7) Patient having severe diarrhea 9-10 times a day. Patient has nausea that comes along with the diarrhea. Patient has urgency along with being woken up nightly with the bowel movements. Patient to start Immodium daily to help with the diarrhea [facility] Other 06-28-2022 Evaluation note* Encounter Date Diagnosis Assessment Notes Treatment Notes Treatment Clinical Notes Aug, Diarrhea (ICD-10 - R19.7) [facility] Other 02-15-2022 Evaluation note* Encounter Date Diagnosis Assessment Notes Treatment Notes Treatment Clinical Notes Apr, Hematemesis (ICD-10 - K92.0) Apr, Acute gastritis with hemorrhage, unspecified gastritis type (ICD-10 - K29.01) Apr, Abdominal pain (ICD-10 - R10.9) [facility] Other Evaluation + Plan note Future Appointments Appointment Date:12/09/2024 01:00:00 PM Scheduled Provider:Rajni Chen PA-C Location:[facility] Appointment Type:URO Office Visit [facility] evaluation noteNo InformationNort [employer] Other Evaluation note* Diagnosis Influenza A- Primary Influenza with other respiratory manifestations Acute cough [facility] Diagnosis Agoraphobia with panic attacks Agoraphobia with panic disorder Anxiety about health Generalized anxiety disorder with panic attacks [facility] Diagnosis Agoraphobia with panic attacks- Primary Agoraphobia with panic disorder Narcotic use agreement exists Panlobular emphysema (CMS-HCC) Other emphysema Trigeminal neuralgia Anxiety about health Generalized anxiety disorder with panic attacks GERD without esophagitis Esophageal reflux [facility]* Diagnosis Panlobular emphysema (CMS-HCC)- Primary Other emphysema Dilatation of aorta (CMS-HCC) Aortic aneurysm of unspecified site without mention of rupture Schizoaffective disorder, bipolar type ([facility]) Schizoaffective disorder, unspecified condition documented [facility]* Diagnosis Chronic obstructive pulmonary disease with acute exacerbation (CMS-HCC)- Primary Panlobular emphysema ([facility]) Other emphysema [facility]* Diagnosis Chronic obstructive pulmonary disease with acute exacerbation (CMS-HCC) documented [facility]* Diagnosis Seasonal allergic rhinitis due to pollen- Primary [facility]* Diagnosis [id number] adverse effect of medication, initial encounter- Primary documented in [facility]* Diagnosis Agoraphobia with panic attacks Agoraphobia with panic disorder Anxiety about health Generalized anxiety disorder with panic attacks [facility]* Diagnosis Agoraphobia with panic attacks- Primary Agoraphobia with panic disorder Social anxiety disorder Social phobia Schizoaffective disorder, bipolar type ([facility]) Schizoaffective disorder, unspecified condition Paranoid schizophrenia ([facility]) Paranoid schizophrenia, unspecified condition Anxiety about health documented in this encounter [facility]* Diagnosis Panlobular emphysema (CMS-HCC) Other emphysema documented in [facility]* Diagnosis Chronic obstructive pulmonary disease with acute exacerbation (CMS-HCC)- Primary [facility] Diagnosis Herpes zoster without complication- Primary documented in [facility]* Diagnosis Agoraphobia with panic attacks Agoraphobia with panic disorder Anxiety about health Generalized anxiety disorder with panic attacks documented [facility]* Diagnosis Agoraphobia with panic attacks- Primary Agoraphobia with panic disorder Narcotic use agreement exists Anxiety about health Generalized anxiety disorder with panic attacks [facility] Diagnosis Trigeminal neuralgia [facility] Diagnosis Anxiety about health- Primary Agoraphobia with panic attacks Agoraphobia with panic disorder Generalized anxiety disorder with panic attacks Paranoid schizophrenia ([facility]) Paranoid schizophrenia, unspecified condition Posttraumatic stress disorder Dilatation of aorta [place] Aortic aneurysm of unspecified site without mention of rupture documented [facility]* Diagnosis Acute left otitis media- Primary documented in [facility] encounter [facility]* Diagnosis Acute left otitis media- Primary [facility]* Diagnosis Lumbar paraspinal muscle spasm- Primary Other symptoms referable to back Lumbar back pain Lumbago [facility]* Diagnosis Agoraphobia with panic attacks Agoraphobia with panic disorder Anxiety about health Generalized anxiety disorder with panic attacks documented [facility]* Diagnosis Agoraphobia with panic attacks- Primary Agoraphobia with panic disorder Narcotic use agreement exists documented [facility]* Diagnosis Trigeminal neuralgia [facility]* Diagnosis Generalized anxiety disorder with panic attacks- Primary Agoraphobia with panic attacks Agoraphobia with panic disorder Anxiety about health documented in [facility]* Diagnosis Panlobular emphysema [place] Other emphysema [facility]* Diagnosis Disorder of left eustachian tube- Primary Lumbar paraspinal muscle spasm Other symptoms referable to back Cigarette smoker Tobacco use disorder [facility] N[facility]ative - Reported* Type Description Date Medical History GERD Medical History paronoid schizophrenia Medical History H Pylori Medical History PTSD Medical History Social anxiety Medical History Agoraphobia Surgical History EGD Surgical History hernia repair - Dr. Rhodes Hospitalization History [address] (few t imes) mental health Hospitalization History [facility] Hospitalization History [place] 2018 [facility] [employer] Other Hospital course Narrative No data available for this section [facility] Instructions* Attachments The following attachments cannot be sent through Care Everywhere. * Cough in adults (Mauritanian) * Flu (Mauritanian) documented in this encounterPro[facility] SystemInstructionsNot on file documented in this encounterPro[facility] System[facility]ructions* Attachments The following attachments cannot be sent through Care Everywhere. * Chronic obstructive pulmonary disease (COPD) (Mauritanian) documented in this [facility]* Attachments The following attachments cannot be sent through Care Everywhere. * Chronic obstructive pulmonary disease (COPD) (Mauritanian) documented in this encounter[facility] SystemInstructionsNot on file documented in this encounterProMore[facility] International SystemInstructionsNot on file documented in this encounterProMore[facility] SystemInstructionsNot on file documented in this encounterPro[facility] SystemInstructions* Attachments The following attachments cannot be sent through Care Everywhere. * Chronic Obstructive Pulmonary Disease (COPD) Discharge Instructions (Mauritanian) documented in this encounterProMore[facility] SystemInstructionsNot on file documented in this encounter[facility] SystemInstructions* Attachments The following attachments cannot be sent through Care Everywhere. * Agoraphobia (Mauritanian) documented in this encounterProMore[facility] SystemInstructionsNot on file documented in this encounterPro[facility] SystemInstructions* Attachments The following attachments cannot be sent through Care Everywhere. * Panic disorder (Mauritanian) documented in this encounter[facility] SystemInstructions* Attachments The following attachments cannot be sent through Care Everywhere. * Ear Infection ED (Mauritanian) documented in this encounterProMore[facility] SystemInstructions* Attachments The following attachments cannot be sent through Care Everywhere. * Low back pain Discharge instructions (Mauritanian) * Opioids for Short-Term Treatment of Pain ED (Mauritanian) [facility]ructionsNot on [facility] documented in [facility]Inst[facility]* Attachments The following attachments cannot be sent through Care Everywhere. * Agoraphobia (Mauritanian) documented in this [facility] SystemInstructionsNot on file documented in this [facility] SystemInstructions* Attachments The following attachments cannot be sent through Care Everywhere. * Agoraphobia (Mauritanian) * Panic attack Discharge instructions (Mauritanian) documented in [facility] System[facility] note No data available for this section [facility] reason for referral (narrative)* Consultation (Routine) - Authorized Specialty Diagnoses / Procedures Referred By Tatyana amaya Referred To Contact Pulmonary Medicine Diagnoses Panlobular emphysema ([facility] Heather Castellanos, [employer]OWER[employer]ANT MECHANIC-PASSENGER COACH DRIVER [address] [place] [address] Juan Baumann, DO [address] [place] [address] Referral ID Status Reason Start Date Expiration Date V isits Requested Visits Authorized [id number] Authorized 07/09/2023 07/08/2024 1 1 Electronically signed by Heather Castellanos [employer]FRAME [employer] POWERPLANT MECHANIC-PASSENGER COACH DRIVER at 07/09/2023 10:15 AM EDT [facility] Summary Purpose Family History No Family History Records FoundNo Family History Records FoundNo Family History Records FoundNo Family History Records FoundNo Family History Records Found No data available for this section No Family History Records FoundNo Family History Records Found Advance Directives No Advanced Directives Records Found Date Activated Date Inactivated Comments 09/27/2017 6:44 AM 2017 3:42 PM Date Activated Date Inactivated Comments 09/27/2017 6:44 AM 2017 3:42 PM Latest Code Status on File Code Status Date Activated Date Inactivated Comments Full Code 09/27/2017 6:44 AM 2017 3:42 PM Additional Source Comments (unrecognized sect ion and content) No Status Records FoundNo Status Records FoundNo Status Records FoundNo Status Records FoundNo Status Records FoundNo Status Records FoundNo Status Records Found INFORMATION SOURCE (unrecogn ized section and content) DATE CREATED AUTHOR 02/18/2018 [facility] DATE CREATED AUTHOR AUTHOR'S ORGANIZ ATION 09/27/2021 [facility] DATE CREATED AUTHOR AUTHOR'S ORGANIZ ATION 07/04/2022 [facility] DATE CREATED AUTHOR AUTHOR'S ORGANIZ ATION 09/08/2023 [facility] DATE CREATED AUTHOR AUTHOR'S ORGANIZ ATION 08/20/2024 [facility] DATE CREATED AUTHOR AUTHOR'S ORGANIZ ATION 11/25/2024 Albino Marie [facility] DATE CREATED AUTHOR AUTHOR'S ORGANIZ ATION [facility]/27/20[facility] REASON FOR VISIT (unrecogniz ed section and content) Reason Comments Cough Nasal Congestion 04/06 Reason Comments Med Refill Reason Comments Anxiety Controlled sub Reason Comments COPD Reason Comments Nasal Congestion Neg covid. 1 week Reason Comments URI Reason Comments high heart rate and BP Reason Comments Anxiety Refill med Reason Comments Cough White phlegm-1 month Reason Comments Rash Painful and scanlon 2 days Reason Comments controlled substance contract Reason Comments controlled medications Reason Comments Earache Pain in left ear suleman ping him up at night. Reason Comments ears no better Reason Comments F/U from [facility] severe back pain Reason Comments controlled substance Reason Comments Anxiety Reason Onset Date Comments Med Refill 11/11/2024 Reason Comments earache severe back pain Care Teams (unrecognized sec tion and content) Test Baker Relationship Specialty Start Date End Date Heather Castellanos APRN-CNP [address] [place] [address] PCP - General Nurse Practitioner 11/19/16 Test Baker Relationship Specialty Start Date End Date Heather Castellanos APRN-CNP [address] [place] [address] PCP - General Nurse Practitioner 11/19/16 Test Baker Relationship Specialty Start Date End Date Heather Castellanos APRN-CNP [address], [place] [address] PCP - General Nurse Practitioner 11/19/16 Test Baker Relationship Specialty Start Date End Date Heather Castellanos [facility] [address], [place] [address] PCP - General Nurse Practitioner 11/19/16 Test Baker Relationship Specialty Start Date End Date Heather Castellanos [facility] [address], [place] [address] PCP - General Nurse Practitioner 11/19/16 Test Baker Relationship Specialty Start Date End Date Heather Castellanos [facility] [address], [place] [address] PCP - General Nurse Practitioner 11/19/16 Test Baker Relationship Specialty Start Date End Date Heather Castellanos [facility] [address], [place] [address] PCP - General Nurse Practitioner 11/19/16 Test Baker Relationship Specialty Start Date End Date Heather Castellanos [facility] [address], [place] [address] PCP - General Nurse Practitioner 11/19/16 Test Baker Relationship Specialty Start Date End Date Heather Castellanos [facility] [address], [place] [address] PCP - General Nurse Practitioner 11/19/16 Test Baker Relationship Specialty Start Date End Date Heather Castellanos [facility] [address] [place] [address] PCP - General Nurse Practitioner 11/19/16 Test Baker Relationship Specialty Start Date End Date Heather Castellanos [facility] [address] [place] [address] PCP - General Nurse Practitioner 11/19/16 Test Baker Relationship Specialty Start Date End Date Heather Castellanos [facility] [address] [place] [address] PCP - General Nurse Practitioner 11/19/16 Test Baker Relationship Specialty Start Date End Date Heather Castellanos [facility] [address] [place] [address] PCP - General Nurse Practitioner 11/19/16 Test Baker Relationship Specialty Start Date End Date Ana Lilia Oglesby, [facility] [address] [place] [address] PCP - General Internal Medicine 10/08/24 Test Baker Relationship Specialty Start Date End Date Ana Lilia Oglesby, [facility] [address] [place] [address] PCP - General Internal Medicine 10/08/24 FOR RECORDS PERTAINING TO PATIENTS WHO ARE OR HAVE BEEN ENROLLED IN A CHEMICAL DEPENDENCY/SUBSTANCEABUSE PROGRAM, SOME INFORMATION MAY BE OMITTED. This clinical summary was aggregated from multiple sources. Caution should be exercised in using it in the provision of clinical care. This summary normalizes information from multiple sources, and as a consequence, information in this document may materially change the coding, format and clinical context of patient data. In addition, data may be omitted in some cases. CLINICAL DECISIONS SHOULD BE BASED ON THE PRIMARY CLINICAL RECORDS. [facility]. provides no warranty or guarantee of the accuracy or completeness of information in this document."
--- NOTE | 2024-11-29 17:20 | XR_ITS ---
The [address] [address] Patient Name: LINO DEGROOT MRN: [id number] date: 1975 Sex: M Assigned Patient Location: ED.MAIN Current Patient Location: ED.MAIN Accession/Order Number: [id number] Exam Date: 11/29/2024 17:30 Report Date: 11/29/2024 17:51 At the request of: TALITA WHITE MD Procedure: XR lumbar spine 2-3V 2 views lumbar spine INDICATION: Atraumatic pain COMPARISON: 07/04/2024 FINDINGS: Lumbar vertebral heights and alignment maintained. Mild facet arthropathy at L5-S1. Minimal dextrocurvature. XR/XR lumbar spine 2-3V IMPRESSION: Minimal degenerative changes. Negative acute osseous abnormality. Impression dictated by: Adryan Macias M.D. 11/29/2024 5:51 PM Dictation Location: [place] [address] Electronically authenticated by: [id number] Y Date: 11/29/2024 17:51
--- NOTE | 2024-11-29 17:21 | ED.GENADUL1 ---
HPI HPI - General Adult General Chief complaint: Back Pain/Injury Stated complaint: BACK PAIN Time Seen by Provider: 11/29/24 17:07 Source: patient Mode of arrival: walk-in Limitations: no limitations History of Present Illness HPI narrative: 49-year-old male presents for a 6-day history of back pain. It was hurting a little bit and then he lifted some heavy items and then it got worse. It is across his lower back and it seems to go upwards. It does not go into his legs. No dysuria or hematuria or weakness in his legs. He saw his family doctor who prescribed him a muscle relaxer. Related Data Home Medications ?Medication ?Instructions ?Recorded ?Confirmed fluoxetine 40 mg capsule 80 mg PO QPM 11/13/22 11/29/24 gabapentin 100 mg capsule 100 mg PO BID 11/13/22 11/29/24 haloperidol 1 mg tablet 3 mg PO QPM 11/13/22 11/29/24 lorazepam 0.5 mg tablet 0.5 mg PO BID PRN anxiety 11/13/22 11/29/24 trazodone 100 mg tablet 100 mg PO QPM 11/13/22 11/29/24 bupropion HCl 150 mg 24 hr tablet, mg PO 11/29/24 extended release fluticasone fur. 200 mcg-umeclid inhalation 11/29/24 62.5 mcg-vilant 25 mcg inhalat.powder (Trelegy Ellipta) fluticasone propionate 50 intranasal 11/29/24 mcg/actuation nasal spray,suspension haloperidol 2 mg tablet mg 11/29/24 lorazepam 1 mg tablet mg 11/29/24 pantoprazole 40 mg tablet,delayed mg PO 11/29/24 release prednisone 20 mg tablet mg 11/29/24 tizanidine 2 mg tablet mg 11/29/24 Previous Rx's ?Medication ?Instructions ?Recorded acetaminophen 300 mg-codeine 30 mg 1 tab PO Q6H PRN pain 5 days #20 11/29/24 tablet tabs ibuprofen 800 mg tablet 800 mg PO Q8H PRN pain #20 tabs 11/29/24 Allergies Allergy/AdvReac Type Severity Reaction Status Date / Time aspirin Allergy Severe unknown Verified 11/29/24 17:16 Penicillins Allergy Severe unknown Verified 11/29/24 17:16 risperidone (From Risperdal) Allergy Severe unknown Verified 11/29/24 17:16 glue Allergy Unknown Uncoded 11/29/24 17:16 Opioid HPI Opioid Management Most Recent Opioid Data: Last Pain Scale 10 Today, 17:54 Last MAR Pain Assessment Today, 17:54 Review of Systems ROS Narrative A ten point review of systems is negative except as noted above. PFSH PFSH Social History Little interest or pleasure in doing things: not at all Feeling down, depressed, or hopeless: not at all Exam Narrative Exam Narrative: Nurses note and vital signs reviewed and patient is not hypoxic. General: The patient appears well and in no apparent distress. Patient is resting comfortably on cart. Skin: Warm, dry, no pallor noted. There is no rash noted. Head: Normocephalic, atraumatic Eye: Normal conjunctiva, no drainage Ears, Nose, Mouth, and Throat: oral mucosa is moist. Nares patent. Cardiovascular: Regular Rate and Rhythm Respiratory: Patient is in no distress, no accessory muscle use, lungs are clear to auscultation, no wheezing, rales or rhonchi Back: No bruise or or abrasion present. He seems to have some tenderness across his lower back. GI: Soft and nontender Musculoskeletal: Motor strength intact in his lower extremities Neurological: A&O, normal speech; strength intact in his lower extremities Psychiatric: Cooperative Constitutional Vital Signs, click to edit/add: Last Vital Signs Temp 98.2 F 11/29/24 17:13 Pulse 71 11/29/24 17:13 Resp 18 11/29/24 17:13 BP 146/78 H 11/29/24 17:13 Pulse Ox 99 11/29/24 17:13 O2 Del Method Room Air 11/29/24 17:13 Course Vital Signs Vital signs: Vital Signs Temperature 98.2 F 11/29/24 17:13 Pulse Rate 71 11/29/24 17:13 Respiratory Rate 18 11/29/24 17:13 Blood Pressure 146/78 H 11/29/24 17:13 Pulse Oximetry 99 11/29/24 17:13 Oxygen Delivery Method Room Air 11/29/24 17:13 Temperature 98.2 F 11/29/24 17:13 Pulse Rate 71 11/29/24 17:13 Respiratory Rate 18 11/29/24 17:13 Blood Pressure 146/78 H 11/29/24 17:13 Pulse Oximetry 99 11/29/24 17:13 Oxygen Delivery Method Room Air 11/29/24 17:13 Medical Decision Making MDM Narrative Medical decision making narrative: Urinalysis is negative. X-rays show degenerative changes. He was given IM Toradol and prescribed Tylenol 3 and ibuprofen. He was already prescribed tizanidine by his PCP. Treatment diagnosis and follow-up were discussed with the patient. Differential Diagnosis Differential Diagnosis: Lumbar strain, compression fracture Lab Data Lab results reviewed: Yes I reviewed the patient's lab results Labs: Lab Results 11/29/24 Range/Units 17:46 Urine Color Lt. yellow (YELLOW) Urine Clarity Clear (CLEAR) Urine pH 6.5 (5.0-9.0) Ur Specific Griffin <=1.005 A (1.005-1.025) Urine Protein Negative (NEG/TRACE) mg/dL Urine Glucose (UA) Negative (NEGATIVE) mg/dL Urine Ketones Negative (NEGATIVE) mg/dL Urine Occult Blood Negative (NEGATIVE) Urine Nitrite Negative (NEGATIVE) Urine Bilirubin Negative (NEGATIVE) Urine Urobilinogen 0.2 (0.2-1.0) EU/dL Ur Leukocyte Esterase Negative (NEGATIVE) Urine RBC None seen (0-2) #/HPF Urine WBC None seen (NONE SEEN) #/HPF Ur Squamous Epith Cells Rare (NONE/RARE) #/LPF Urine Crystals None seen (None Seen) #/HPF Urine Bacteria None seen (NONE SEEN) #/HPF Urine Casts None seen (NONE SEEN) #/LPF Urine Mucus None seen (NONE SEEN) Imaging Data Lumbar spine films: Radiologist's impression: ITS Impressions Lumbar Spine X-Ray 11/29/24 17:20 IMPRESSION: Minimal degenerative changes. Negative acute osseous abnormality. Impression dictated by: Adryan Macias M.D. 11/29/2024 5:51 PM Dictation Location: [place] [address] Electronically authenticated by: [id number] Y Date: 11/29/2024 17:51 Discharge Plan Discharge Chief Complaint: Back Pain/Injury Clinical Impression: Low back pain Patient Disposition: Home, Self-Care Time of Disposition Decision: 18:14 Condition: Good Mode of Transportation: Private Vehicle Prescriptions / Home Meds: New ibuprofen 800 mg tablet 800 mg PO Q8H PRN (Reason: pain) Qty: 20 0RF acetaminophen-codeine 300-30 mg tablet 1 tab PO Q6H PRN (Reason: pain) 5 Days Qty: 20 0RF No Action tizanidine 2 mg tablet prednisone 20 mg tablet pantoprazole 40 mg tablet,delayed release (DR/EC) PO lorazepam 1 mg tablet haloperidol 2 mg tablet fluticasone propionate 50 mcg/actuation spray,suspension INTRANASAL bupropion HCl 150 mg tablet extended release 24 hr PO Trelegy Ellipta 200-62.5-25 mcg blister with device INHALATION fluoxetine 40 mg capsule 80 mg PO QPM gabapentin 100 mg capsule 100 mg PO BID haloperidol 1 mg tablet 3 mg PO QPM lorazepam 0.5 mg tablet 0.5 mg PO BID PRN (Reason: anxiety) trazodone 100 mg tablet 100 mg PO QPM Print Language: Argentine Instructions: Acute Low Back Pain (ED) Referrals: Physician,Non-Staff, MD [Primary Care Provider] - 1 week
[2024-11-29 17:53] LABS: Glucose Urine UA NEGATIVE (NEGATIVE)
[2024-11-29] MEDS: KETOROLAC TROMETHAMINE 60 MG/2 ML VIAL IM (17:54)
[2024-11-29 18:00] LABS: Cast Seen? NONE SEEN #/LPF (NONE SEEN); Crystals Seen? None Seen #/HPF (None Seen)
[2024-11-29 18:30] VITALS: BP 154/88; PULSE 78; O2SAT 98
== END 2024-11-29 18:33 | disposition home or self-care (01) ==
PROVIDERS: Emergency Provider Emergency Medicine
DX: M54.50 Low back pain, unspecified (principal)
CPT/HCPCS: 72100; 81001; 96372; 99285; J1885